=== PATIENT | male | born 1935 | race Caucasian/White ===

== ENCOUNTER 2019-12-15 08:45 | Day surgery (SDC) | payer MEDICARE, OTHER ==
[~2019-12-15 08:45] MED LIST: Cefuroxime 10 MG/ML SYRINGE EYELF SCH; Lidocaine 1% PF 2 ML SDV INJECT SCH; Pilocarpine 4% Ophth Soln 15 ML Bot EYELF SCH
--- NOTE | 2019-12-15 09:47 | PCM.PREANE ---
Preanesthetic Assessment - Procedure Proposed Procedure: cataract - Anesthesia/Transfusion/Family Hx Anesthesia History: Prior Anesthesia Without Reaction Transfusion History: Prior Transfusion Without Reaction - Review of Systems General: No Symptoms Pulmonary: No Symptoms Cardiovascular: No Symptoms, Other (VA in past) Gastrointestinal: No Symptoms Neurological: No Symptoms Other: Reports: None - Physical Assessment NPO Status Date: 12/14/19 NPO Status Time: 20:00 Vital Signs: 132/71 59 98% 16 97.8 Height: 5 ft 9 in Weight: 78.018 kg ASA Class: 3 Mental Status: Alert & Oriented x3 Airway Class: Mallampati = 1 Dentition: Reports: Normal Dentition, Caries (top flipper) Thyro-Mental Finger Breadths: 3 Mouth Opening Finger Breadths: 3 ROM/Head Extension: Full Lungs: Clear to Auscultation Cardiovascular: Regular Rate, Regular Rhythm, Murmurs - Allergies Allergies/Adverse Reactions: Allergies Allergy/AdvReac Type Severity Reaction Status Date / Time amoxicillin Allergy Cannot Verified 12/14/19 10:32 Remember aspirin Allergy Cannot Verified 12/14/19 10:32 Remember Bsgbhgt-Gvt-Ctv Reductase Allergy Cannot Verified 12/14/19 10:32 Inhibitor Remember - Blood Blood Available: No - Anesthesia Plan Beta Meño: Metoprolol Med Last Dose Date: 12/15/19 Med Last Dose Time: 06:30 - Acknowledgements Anesthesia Type Planned: MAC Pt an Appropriate Candidate for the Planned Anesthesia: Yes Alternatives and Risks of Anesthesia Discussed w Pt/Guardian: Yes Pt/Guardian Understands and Agrees with Anesthesia Plan: Yes PreAnesthesia Questionnaire Cardiovascular History: Reports: Heart Murmur, High Cholesterol, Hypertension, VA, Stents Respiratory History: Reports: None Gastrointestinal History: Reports: None Musculoskeletal History: Reports: Arthritis - Past Surgical History Cardiovascular Surgical History: Reports: Coronary Artery Stent GI Surgical History: Reports: Hernia, Inguinal Neurological Surgical History: Reports: Other (See Below) (spinal tumor) Musculoskeletal Surgical History: Reports: Knee Replacement - SUBSTANCE USE Smoking Status *Q: Former Smoker Tobacco Use Within Last Twelve Months: No Second Hand Smoke Exposure: No Recreational Drug Use History: No - HOME MEDS Home Medications: Home Meds Aspirin [Ecotrin EC] 81 mg PO DAILY 12/14/19 [History] Metoprolol Succinate 50 mg PO DAILY 12/14/19 [History] Rosuvastatin Calcium [Crestor] 40 mg PO DAILY 12/14/19 [History] amLODIPine [Norvasc] 5 mg PO DAILY 12/14/19 [History] hydroCHLOROthiazide [Hydrochlorothiazide] 12.5 mg PO DAILY 12/14/19 [History] lisinopriL [Lisinopril] 40 mg PO DAILY 12/14/19 [History] - CURRENT (IN HOUSE) MEDS Current Meds: Current Medications Brimonidine Tartrate (Alphagan 0.2% Ophth Soln) 0 ml EYELF ASDIRECTED [place] Stop: 12/15/19 23:00 Cefuroxime Sodium (Zinacef) 0 mg EYELF ASDIRECTED [place] Stop: 12/15/19 23:00 Lidocaine HCl (Xylocaine-Mpf 1%) 0 ml INJECT ASDIRECTED [place] Stop: 12/15/19 23:00 Phenylephrine HCl (Mike-Synephrine 2.5% Ophth Soln) 0 ml EYELF ASDIRECTED [place] Stop: 12/15/19 23:00 Pilocarpine HCl (Pilocar 4% Ophth Soln) 0 ml EYELF ASDIRECTED [place] Stop: 12/15/19 23:00 Polymyxin/Trimethoprim Sulfate (Polytrim Ophth Soln) 0 ml EYELF ASDIRECTED [place] Stop: 12/15/19 23:00 Tetracaine HCl (Tetracaine 0.5% Steri-Unit Sophie) 0 ml EYELF ASDIRECTED [place] Stop: 12/15/19 23:00 Tropicamide (Mydriacyl 1% Ophth Soln) 0 ml EYELF ASDIRECTED [place] Stop: 12/15/19 23:00
[2019-12-15] MEDS: Polymyxin B/Trimethoprim 10 ML Bottle EYELF SCH ×3 (09:53→11:36)
[2019-12-15] MEDS: Brimonidine 0.2% Ophth Soln 5 ML Bottle EYELF SCH ×3 (09:58→11:36)
[2019-12-15] MEDS: Phenylephrine 2.5% Ophth Soln 2 ML Bot EYELF SCH ×5 (10:05→11:12)
[2019-12-15] MEDS: Tropicamide 1% Ophth Soln 15 ML Bottle EYELF SCH ×4 (10:10→10:49)
[2019-12-15] MEDS: Tetracaine HCl/PF 0.5% 4 ML Bottle EYELF SCH ×2 (10:57→11:21)
--- NOTE | 2019-12-15 11:37 | PCM48HPAN ---
Post Anesthesia Note - EVALUATION WITHIN 48HRS OF ANESTHETIC Vital Signs in Normal Range: Yes Patient Participated in Evaluation: Yes Respiratory Function Stable: Yes Airway Patent: Yes Cardiovascular Function Stable: Yes Hydration Status Stable: Yes Pain Control Satisfactory: Yes Nausea and Vomiting Control Satisfactory: Yes Mental Status Recovered: Yes Vital Signs: Last Vital Signs Temp 97.8 F 12/15/19 09:32 Pulse 59 L 12/15/19 09:32 Resp 16 12/15/19 09:32 BP 132/71 12/15/19 09:32 Pulse Ox 98 12/15/19 09:32
== END 2019-12-15 11:46 | disposition home or self-care (01) ==
LOC: JD.SDS 08:45
PROVIDERS: ATTEND Ophthalmology
DX: H25.813 Combined forms of age-related cataract, bilateral (principal); H35.3131 Nonexudative age-related macular degeneration, bilateral, early dry stage; H35.363 Drusen (degenerative) of macula, bilateral; H40.003 Preglaucoma, unspecified, bilateral; H35.033 Hypertensive retinopathy, bilateral; H43.313 Vitreous membranes and strands, bilateral; H02.834 Dermatochalasis of left upper eyelid; H02.831 Dermatochalasis of right upper eyelid; I10 Essential (primary) hypertension; E78.00 Pure hypercholesterolemia, unspecified; I25.2 Old myocardial infarction; M19.90 Unspecified osteoarthritis, unspecified site; Z87.891 Personal history of nicotine dependence; Z79.82 Long term (current) use of aspirin; Z79.899 Other long term (current) drug therapy; Z88.0 Allergy status to penicillin; Z88.6 Allergy status to analgesic agent; Z88.8 Allergy status to other drugs, medicaments and biological substances
CPT/HCPCS: 66984; J0697; J2001; C1780

== ENCOUNTER 2021-01-29 19:24 | Emergency (ER) | payer MEDICARE, OTHER ==
--- NOTE | 2021-01-29 19:46 | EDM.PDOC ---
ED HPI GENERAL MEDICAL PROBLEM - General Chief Complaint: Chest Pain Stated Complaint: CHILLS FEVER CHEST PAIN Time Seen by Provider: 01/29/21 19:36 - History of Present Illness INITIAL COMMENTS - FREE TEXT/NARRATIVE: 85-year-old male presents the emergency room with chest discomfort. He has had associated fevers with this. This is been going on the last couple of days. Drinking fluids milk water tends to make it worse he cannot identify any specific foods that makes it worse. However, he cannot exclude food is been a trigger. Patient has a history of coronary artery disease had a stroke about a year ago. He suffers from atrial fibrillation and is on Eliquis. Currently has been evaluated for possible aortic valve replacement this last week he had a transesophageal echo to assess this. Patient does not have a significant cough but is coughing some it is nonproductive. This discomfort does not radiate it is not crushing. And at present he is having no chest pain. 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 Chest Pain Score (Numeric/FACES): 8 - Related Data Allergies Allergy/AdvReac Type Severity Reaction Status Date / Time amoxicillin Allergy Severe Rash Verified 01/29/21 19:39 Qokjqnc-Kee-Jdd Reductase Allergy Severe Cannot Verified 01/29/21 19:39 Inhibitor Remember aspirin AdvReac Severe Other Verified 01/29/21 19:39 Home Meds: Home Meds Aspirin [Ecotrin EC] 81 mg PO DAILY 12/14/19 [History] Metoprolol Succinate 50 mg PO DAILY 12/14/19 [History] Rosuvastatin Calcium [Crestor] 40 mg PO DAILY 12/14/19 [History] hydroCHLOROthiazide [Hydrochlorothiazide] 12.5 mg PO DAILY 12/14/19 [History] lisinopriL [Lisinopril] 40 mg PO DAILY 12/14/19 [History] Apixaban [Eliquis] 5 mg PO BID 01/29/21 [History] Ubidecarenone [COQ-10] 30 mg PO DAILY 01/29/21 [History] Past Medical History Cardiovascular History: Reports: Heart Murmur, High Cholesterol, Hypertension, [place], Stents Respiratory History: Reports: None Gastrointestinal History: Reports: None Musculoskeletal History: Reports: Arthritis - Past Surgical History Cardiovascular Surgical History: Reports: Coronary Artery Stent GI Surgical History: Reports: Hernia, Inguinal Neurological Surgical History: Reports: Other (See Below) (spinal tumor) Musculoskeletal Surgical History: Reports: Knee Replacement ED ROS GENERAL - Review of Systems Review Of Systems: See Below Constitutional: Reports: Fever, Chills. Denies: No Symptoms HEENT: Reports: No Symptoms Respiratory: Reports: Cough (Minimal). Denies: Shortness of Breath, Sputum, He moptysis Cardiovascular: Reports: Chest Pain. Denies: Edema Endocrine: Reports: No Symptoms GI/Abdominal: Reports: Abdominal Pain, Nausea. Denies: Constipation, Diarrhea, Vomiting : Reports: No Symptoms Musculoskeletal: Reports: No Symptoms Skin: Reports: No Symptoms Neurological: Reports: No Symptoms, Other (Residual effects from the prior stroke but is otherwise not having any worsening.). Denies: Confusion, Dizzin ess Psychiatric: Reports: No Symptoms Hematologic/Lymphatic: Reports: No Symptoms Immunologic: Reports: No Symptoms ED EXAM, GENERAL - Physical Exam Exam: See Below Exam Limited By: No Limitations General Appearance: Alert, No Apparent Distress, Other (Vital signs stable other than a minimal tachycardia at 105 this is dropped into the 90s with rest.) Ears: Normal External Exam, Normal Canal, Hearing Grossly Normal, Normal TMs, Other (The patient normally uses hearing aids these are removed for exam) Nose: Normal Inspection, Normal Mucosa, No Blood Throat/Mouth: Normal Inspection, Normal Lips, Normal Gums, Normal Oropharynx, Normal Voice, No Airway Compromise. No: Normal Teeth (He has some artificial teeth) Head: Atraumatic, Normocephalic Neck: Normal Inspection, Supple, Non-Tender, Full Range of Motion. No: Lymphadenopathy (L), Lymphadenopathy (R) Respiratory/Chest: No Respiratory Distress, Lungs Clear, Normal Breath Sounds Cardiovascular: Regular Rate, Rhythm, No Edema, Other (6 holosystolic murmur heard best along the right upper sternal border) GI/Abdominal: Normal Bowel Sounds, Soft, Other (He has this vague right upper quadrant discomfort otherwise no palpable discomfort no rigidity rebound or guarding noted) Back Exam: Normal Inspection. No: CVA Tenderness (L), CVA Tenderness (R) Extremities: Normal Inspection, Other (Scant if any pedal edema) Neurological: Alert, Oriented, Normal Cognition Skin Exam: Warm, Dry, Intact #1 Interpretation EKG Date: 01/29/21 Rhythm: A-Fib [place]: Normal P-Wave: Absent QRS: Other (Will touch in the extremities leads) ST-T: Depressed (ST depression V4 and 5 nondiagnostic) QT: Normal Comparison: NA - No Prior EKG EKG Interpretation Comments: Abnormal EKG Course - Vital Signs Last Recorded V/S: Last Vital Signs Temp 36.8 C 01/29/21 20:20 Pulse 96 01/29/21 21:30 Resp 20 01/29/21 21:30 BP 100/57 L 01/29/21 21:30 Pulse Ox 96 01/29/21 21:30 - Orders/Labs/Meds Orders: Active Orders 24 hr Category Date Time Status EKG 12 Lead [EKG Documentation Completion] [RC] ROUTINE Care 01/29/21 19:33 Active Abdomen Ltd [US] Stat Exams 01/29/21 20:58 Ordered Chest 1V Frontal [CR] Stat Exams 01/29/21 20:03 Taken CULTURE BLOOD [BC] Stat Lab 01/29/21 22:06 Ordered CULTURE BLOOD [BC] Stat Lab 01/29/21 22:06 Ordered LACTATE SEPSIS W/ REFLEX [CHEM] Stat Lab 01/29/21 22:05 Ordered Heparin Sodium/D5W [Heparin 25,000 Units in D5W 500 ML] Med 01/29/21 22:00 Ordered 25,000 units in 500 ml IV TITRATE Lactated Ringers [Ringers, Lactated] 1,000 ml Med 01/29/21 21:00 Active IV ASDIRECTED Blood Culture x2 Reflex Set [OM.PC] Stat Oth 01/29/21 22:05 Ordered Isolation [COMM] Routine Oth 01/29/21 20:04 Ordered Medication Orders Lactated Ringer's (Ringers, Lactated) 1,000 mls @ 125 mls/hr IV ASDIRECTED [place] Last Admin: 01/29/21 21:30 Dose: 125 mls/hr Documented by: BREE Heparin Sodium/Dextrose (Heparin 25,000 Units In D5w 500 Ml) 25,000 units in 500 mls @ 19.944 mls/hr IV TITRATE [place]; Protocol Labs: Laboratory Tests 01/29/21 01/29/21 01/29/21 Range/Units 19:40 19:40 19:40 WBC 16.90 H (4.23-9.07) K/mm3 RBC 5.12 (4.63-6.08) M/mm3 Hgb 15.5 (13.7-17.5) gm/dl Hct 47.0 (40.1-51.0) % MCV 91.8 (79.0-92.2) fl MCH 30.3 (25.7-32.2) pg MCHC 33.0 (32.2-35.5) g/dl RDW Std Deviation 48.2 H (35.1-43.9) fL Plt Count 221 (163-337) K/mm3 MPV 10.0 (9.4-12.3) fl Neutrophils % (Manual) 87 H (40-60) % Band Neutrophils % 0 (0-10) % Lymphocytes % (Manual) 12 L (20-40) % Atypical Lymphs % 0 % Monocytes % (Manual) 1 L (2-10) % Eosinophils % (Manual) 0 L (0.8-7.0) % Basophils % (Manual) 0 L (0.2-1.2) Platelet Estimate Adequate RBC Morph Comment Normal D-Dimer, Quantitative 0.29 (0.19-0.50) mg/L Sodium 135 L (136-145) mEq/L Potassium 4.3 (3.5-5.1) mEq/L Chloride 100 (98-107) mEq/L Carbon Dioxide 24 (21-32) mEq/L Anion Gap 15.3 H (5-15) BUN 32 H (7-18) mg/dL Creatinine 1.5 H (0.7-1.3) mg/dL Est Cr Clr Drug Dosing 36.66 mL/min Estimated GFR (MDRD) 45 (>60) mL/min BUN/Creatinine Ratio 21.3 H (14-18) Glucose 155 H (83-115) mg/dL Calcium 8.9 (8.5-10.1) mg/dL Total Bilirubin 2.5 H (0.2-1.0) mg/dL AST 20 (15-37) U/L ALT 18 (16-63) U/L Alkaline Phosphatase 68 (46-116) U/L Troponin I 0.144 H* (0.00-0.056) ng/mL NT-Pro-B Natriuret Pep (0-450) pg/mL Total Protein 7.0 (6.4-8.2) g/dl Albumin 3.2 L (3.4-5.0) g/dl Globulin 3.8 gm/dL Albumin/Globulin Ratio 0.8 L (1-2) Lipase 122 (73-393) U/L Urine Color (Yellow) Urine Appearance (Clear) Urine pH (5.0-8.0) Ur Specific Lula (1.005-1.030) Urine Protein (Negative) Urine Glucose (UA) (Negative) Urine Ketones (Negative) Urine Occult Blood (Negative) Urine Nitrite (Negative) Urine Bilirubin (Negative) Urine Urobilinogen (0.2-1.0) Ur Leukocyte Esterase (Negative) Urine RBC (0-5) /hpf Urine WBC (0-5) /hpf Ur Squamous Epith Cells (0-5) /hpf Urine Bacteria (FEW) /hpf Urine Mucus (FEW) /hpf Influenza Type A RNA (NEGATIVE) Influenza Type B RNA (NEGATIVE) SARS-CoV-2 RNA (NAHID) (NEGATIVE) 01/29/21 01/29/21 01/29/21 Range/Units 19:40 20:08 20:17 WBC (4.23-9.07) K/mm3 RBC (4.63-6.08) M/mm3 Hgb (13.7-17.5) gm/dl Hct (40.1-51.0) % MCV (79.0-92.2) fl MCH (25.7-32.2) pg MCHC (32.2-35.5) g/dl RDW Std Deviation (35.1-43.9) fL Plt Count (163-337) K/mm3 MPV (9.4-12.3) fl Neutrophils % (Manual) (40-60) % Band Neutrophils % (0-10) % Lymphocytes % (Manual) (20-40) % Atypical Lymphs % % Monocytes % (Manual) (2-10) % Eosinophils % (Manual) (0.8-7.0) % Basophils % (Manual) (0.2-1.2) Platelet Estimate RBC Morph Comment D-Dimer, Quantitative (0.19-0.50) mg/L Sodium (136-145) mEq/L Potassium (3.5-5.1) mEq/L Chloride (98-107) mEq/L Carbon Dioxide (21-32) mEq/L Anion Gap (5-15) BUN (7-18) mg/dL Creatinine (0.7-1.3) mg/dL Est Cr Clr Drug Dosing mL/min Estimated GFR (MDRD) (>60) mL/min BUN/Creatinine Ratio (14-18) Glucose (83-115) mg/dL Calcium (8.5-10.1) mg/dL Total Bilirubin (0.2-1.0) mg/dL AST (15-37) U/L ALT (16-63) U/L Alkaline Phosphatase (46-116) U/L Troponin I (0.00-0.056) ng/mL NT-Pro-B Natriuret Pep 1146 H (0-450) pg/mL Total Protein (6.4-8.2) g/dl Albumin (3.4-5.0) g/dl Globulin gm/dL Albumin/Globulin Ratio (1-2) Lipase (73-393) U/L Urine Color Yellow (Yellow) Urine Appearance Clear (Clear) Urine pH 7.0 (5.0-8.0) Ur Specific Lula 1.020 (1.005-1.030) Urine Protein 2+ H (Negative) Urine Glucose (UA) Negative (Negative) Urine Ketones 1+ H (Negative) Urine Occult Blood Trace-lysed H (Negative) Urine Nitrite Negative (Negative) Urine Bilirubin 1+ H (Negative) Urine Urobilinogen 1.0 (0.2-1.0) Ur Leukocyte Esterase Negative (Negative) Urine RBC 0-5 (0-5) /hpf Urine WBC 0-5 (0-5) /hpf Ur Squamous Epith Cells 0-5 (0-5) /hpf Urine Bacteria Occasional (FEW) /hpf Urine Mucus Few (FEW) /hpf Influenza Type A RNA Negative (NEGATIVE) Influenza Type B RNA Negative (NEGATIVE) SARS-CoV-2 RNA (NAHID) Negative (NEGATIVE) 01/29/21 Range/Units 21:25 WBC (4.23-9.07) K/mm3 RBC (4.63-6.08) M/mm3 Hgb (13.7-17.5) gm/dl Hct (40.1-51.0) % MCV (79.0-92.2) fl MCH (25.7-32.2) pg MCHC (32.2-35.5) g/dl RDW Std Deviation (35.1-43.9) fL Plt Count (163-337) K/mm3 MPV (9.4-12.3) fl Neutrophils % (Manual) (40-60) % Band Neutrophils % (0-10) % Lymphocytes % (Manual) (20-40) % Atypical Lymphs % % Monocytes % (Manual) (2-10) % Eosinophils % (Manual) (0.8-7.0) % Basophils % (Manual) (0.2-1.2) Platelet Estimate RBC Morph Comment D-Dimer, Quantitative (0.19-0.50) mg/L Sodium (136-145) mEq/L Potassium (3.5-5.1) mEq/L Chloride (98-107) mEq/L Carbon Dioxide (21-32) mEq/L Anion Gap (5-15) BUN (7-18) mg/dL Creatinine (0.7-1.3) mg/dL Est Cr Clr Drug Dosing mL/min Estimated GFR (MDRD) (>60) mL/min BUN/Creatinine Ratio (14-18) Glucose (83-115) mg/dL Calcium (8.5-10.1) mg/dL Total Bilirubin (0.2-1.0) mg/dL AST (15-37) U/L ALT (16-63) U/L Alkaline Phosphatase (46-116) U/L Troponin I 2.306 H* (0.00-0.056) ng/mL NT-Pro-B Natriuret Pep (0-450) pg/mL Total Protein (6.4-8.2) g/dl Albumin (3.4-5.0) g/dl Globulin gm/dL Albumin/Globulin Ratio (1-2) Lipase (73-393) U/L Urine Color (Yellow) Urine Appearance (Clear) Urine pH (5.0-8.0) Ur Specific Lula (1.005-1.030) Urine Protein (Negative) Urine Glucose (UA) (Negative) Urine Ketones (Negative) Urine Occult Blood (Negative) Urine Nitrite (Negative) Urine Bilirubin (Negative) Urine Urobilinogen (0.2-1.0) Ur Leukocyte Esterase (Negative) Urine RBC (0-5) /hpf Urine WBC (0-5) /hpf Ur Squamous Epith Cells (0-5) /hpf Urine Bacteria (FEW) /hpf Urine Mucus (FEW) /hpf Influenza Type A RNA (NEGATIVE) Influenza Type B RNA (NEGATIVE) SARS-CoV-2 RNA (NAHID) (NEGATIVE) Meds: Medications Generic Name Dose Route Start Last Admin Trade Name Freq PRN Reason Stop Dose Admin Lactated Ringer's 1,000 mls @ 125 mls/hr 01/29/21 21:00 01/29/21 21:30 Ringers, Lactated IV 125 mls/hr ASDIRECTED [place] Administration Heparin Sodium/Dextrose 25,000 units in 500 mls @ 19.944 mls/hr 01/29/21 22:00 Heparin 25,000 Units In D5w 500 Ml IV TITRATE [place] Protocol 12 UNITS/KG/HR Discontinued Medications Generic Name Dose Route Start Last Admin Trade Name Freq PRN Reason Stop Dose Admin Acetaminophen 650 mg 01/29/21 20:08 01/29/21 20:20 Acetaminophen 325 Mg Tab PO 01/29/21 20:09 650 mg NOW ONE Administration Aspirin 324 mg 01/29/21 20:37 01/29/21 20:45 Aspirin 81 Mg Tab.Chew PO 01/29/21 20:38 324 mg ONETIME ONE Administration Heparin Sodium (Porcine) 60 units 01/29/21 21:54 Heparin Sodium 5,000 Units/Ml Vial IVPUSH 01/29/21 21:55 .BOLUS ONE - Re-Assessments/Exams Free Text/Narrative Re-Assessment/Exam: 01/29/21 21:06 Patient's troponin came back slightly elevated 0.144. His proBNP is 1146 white count elevated at 16,900 87% segs no bandemia bilirubin is elevated at 2.5 anion gap is 15.3 BUN 32 creatinine 1.5. I discussed the patient situation with with the his tire setter Dr. Maciel he believes he is having a demand ischemia most likely from being prerenal he recommends checking another troponin and work on rehydration and continue evaluate the source of his right upper quadrant pain. 01/29/21 22:09 Second troponin came back quite a bit elevated at 2.306 up from 0.1442 hours prior. I did discuss this with the tire setter, Dr. Maciel at [facility] who says in light of this we should start heparin and send him to [place]. Gallbladder ultrasound was done which shows no gallstones no sludging no gallbladder wall thickening incidentally there is fluid collection in the renal pelvis. Case was discussed with Dr. Larkin, hospitalist at [facility] who is kind enough to accept the patient in transfer. Patient will be started on heparin his last dose of Eliquis was was this morning. He did receive aspirin here. Patient's blood pressure is in the 90s. After his gallbladder ultrasound he remains chest pain-free he was little diaphoretic and felt feverish but did not have a fever. Departure - Departure Time of Disposition: 22:11 Disposition: DC/Tfer to [facility] 02 Clinical Impression: Elevated troponin, Abdominal discomfort in right upper quadrant, Chest pain - Discharge Information Referrals: Juan José Godwin MD [Primary Care Provider] - Forms: ED Department Discharge Sepsis Event Note (ED) - Focused Exam Vital Signs: Vital Signs Temp Temp Temp Pulse Resp BP Pulse Ox 01/29/21 21:30 96 20 100/57 L 96 01/29/21 20:45 102 H 18 116/68 96 01/29/21 20:20 36.8 C 01/29/21 20:16 97 18 141/74 H 97 01/29/21 20:00 36.9 C 91 18 92/55 L 96 01/29/21 19:33 36.8 C 105 H 18 136/82 95 - My Orders Last 24 Hours: My Active Orders 01/29/21 19:33 EKG 12 Lead [EKG Documentation Completion] [RC] ROUTINE 01/29/21 20:03 Chest 1V Frontal [CR] Stat 01/29/21 20:04 Isolation [COMM] Routine 01/29/21 20:58 Abdomen Ltd [US] Stat 01/29/21 21:00 Lactated Ringers [Ringers, Lactated] 1,000 ml IV ASDIRECTED 01/29/21 22:00 Heparin Sodium/D5W [Heparin 25,000 Units in D5W 500 ML] 25,000 units in 500 ml IV TITRATE 01/29/21 22:05 LACTATE SEPSIS W/ REFLEX [CHEM] Stat Blood Culture x2 Reflex Set [OM.PC] Stat 01/29/21 22:06 CULTURE BLOOD [BC] Stat CULTURE BLOOD [BC] Stat - Assessment/Plan Last 24 Hours: My Active Orders 01/29/21 19:33 EKG 12 Lead [EKG Documentation Completion] [RC] ROUTINE 01/29/21 20:03 Chest 1V Frontal [CR] Stat 01/29/21 20:04 Isolation [COMM] Routine 01/29/21 20:58 Abdomen Ltd [US] Stat 01/29/21 21:00 Lactated Ringers [Ringers, Lactated] 1,000 ml IV ASDIRECTED 01/29/21 22:00 Heparin Sodium/D5W [Heparin 25,000 Units in D5W 500 ML] 25,000 units in 500 ml IV TITRATE 01/29/21 22:05 LACTATE SEPSIS W/ REFLEX [CHEM] Stat Blood Culture x2 Reflex Set [OM.PC] Stat 01/29/21 22:06 CULTURE BLOOD [BC] Stat CULTURE BLOOD [BC] Stat
[2021-01-29] MEDS ORDERED: Acetaminophen 325 MG Tab PO ONE (20:08)
[2021-01-29] MEDS ORDERED: Aspirin 81 MG Tab.Chew PO ONE (20:37)
[2021-01-29 20:53] LABS: CORONAVIRUS COVID-19 NAA NEGATIVE (NEGATIVE)
[2021-01-29] MEDS ORDERED: Lactated Ringers 1,000 ML IV SCH (21:00)
[2021-01-29] MEDS ORDERED: Heparin Sodium 5,000 Units/ML Vial IVPUSH ONE ×2 (21:54→22:12)
[2021-01-29] MEDS ORDERED: Heparin Sodium/D5W 25,000 UNITS/500 ML BAG IV SCH ×2 (22:00→22:30)
--- NOTE | 2021-01-30 08:28 | US ---
Limited abdominal ultrasound: Multiple real-time images of the upper right abdomen were obtained. Comparison: No prior abdominal imaging is available. Liver shows no focal parenchymal abnormality. Right kidney shows slightly prominent right extrarenal pelvis which is most likely a normal variant. Right kidney shows a normal length of 11.2 cm. Gallbladder contains no shadowing gallstones. No gallbladder wall thickening or biliary duct dilatation is seen. Proximal aorta is not well seen. Pancreas is poorly seen. Inferior vena cava is patent. Main portal vein shows normal hepatopedal flow. Impression: 1. Pancreas and proximal are aorta not well seen. 2. Other portions of the right upper quadrant abdominal ultrasound study show nothing acute. Diagnostic code #2 I agree with preliminary report from [facility], finalized on 01/29/21, 11:29 PM CDT
--- NOTE | 2021-01-30 08:28 | CR ---
Chest: Portable view of the chest was obtained. Comparison: Prior chest x-ray of 09/19/13. Heart size and mediastinum are within normal limits for the patient's age. Lungs are clear with no acute parenchymal change. Bony structure shows nothing acute. Impression: 1. Nothing acute is appreciated on portable chest x-ray. Diagnostic code #1
== END 2021-01-29 22:42 ==
LOC: JD.ED 19:24
DX: R10.11 Right upper quadrant pain (principal); R07.89 Other chest pain; R79.89 Other specified abnormal findings of blood chemistry; E78.00 Pure hypercholesterolemia, unspecified; I10 Essential (primary) hypertension; I25.2 Old myocardial infarction; M19.90 Unspecified osteoarthritis, unspecified site; Z88.0 Allergy status to penicillin; Z88.6 Allergy status to analgesic agent; Z88.8 Allergy status to other drugs, medicaments and biological substances; Z79.82 Long term (current) use of aspirin; Z79.899 Other long term (current) drug therapy; Z20.822 Contact with and (suspected) exposure to COVID-19
CPT/HCPCS: 0240U; 36415; 71045; 76705; 80053; 81001; 83605; 83690; 83880; 84484; 85007; 85027; 85379; 87040; 87077; 87181; 87184; 93005; 96365; 99285; A9270; J1644; J7120; 93010

== ENCOUNTER 2021-02-24 08:57 | Emergency (ER) | payer MEDICARE, OTHER ==
[2021-02-24] MEDS ORDERED: Sodium Chloride 0.9% 10 ML Syringe FLUSH PRN ×2 (09:17→11:29)
--- NOTE | 2021-02-24 09:23 | EDM.PDOC ---
ED HPI GENERAL MEDICAL PROBLEM - General Chief Complaint: Chest Pain Stated Complaint: CHEST PAIN AND SOB Time Seen by Provider: 02/24/21 09:06 Source of Information: Reports: Patient History Limitations: Reports: No Limitations - History of Present Illness INITIAL COMMENTS - FREE TEXT/NARRATIVE: The patient presents with chest pain and shortness of breath. This started last night before he went to bed. He then woke up about 1 in the morning and had to sit in his chair in the living room. He was recently sent to [facility] in [place] on January 27 for chest pain and elevated troponin. 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 He has no fever or chills. He does have a slight cough but that is a chronic issue. He has no abdominal pain, nausea or vomiting. He has a history of an NM and stents in the past. He did take aspirin this morning. He has a history of atrial fibrillation and he is on eliquis for that. Onset: Gradual Duration: Hour(s): (last night) Location: Reports: Chest Quality: Reports: Pressure Severity: Moderate Improves with: Reports: None Worsens with: Reports: None Associated Symptoms: Reports: Chest Pain, Cough, Shortness of Breath. Denies: Fever/Chills, Headaches, Nausea/Vomiting - Related Data Allergies Allergy/AdvReac Type Severity Reaction Status Date / Time amoxicillin Allergy Intermediate Rash Verified 02/09/21 09:22 [id number] Reductase Allergy Unknown Cannot Verified 02/09/21 09:22 Inhibitor Remember aspirin AdvReac Intermediate Bleeding Verified 02/09/21 09:22 Home Meds: Home Meds Aspirin [Ecotrin EC] 81 mg PO DAILY 12/14/19 [History] Metoprolol Succinate 50 mg PO DAILY 12/14/19 [History] hydroCHLOROthiazide [Hydrochlorothiazide] 12.5 mg PO DAILY 12/14/19 [History] lisinopriL [Lisinopril] 40 mg PO DAILY 12/14/19 [History] Apixaban [Eliquis] 5 mg PO BID 01/29/21 [History] Ubidecarenone [COQ-10] 30 mg PO DAILY 01/29/21 [History] Nitroglycerin 0.4 mg SL Q5M PRN #1 bottle 02/24/21 [Rx] Past Medical History HEENT History: Reports: Hard of Hearing, Impaired Vision Other HEENT History: bilateral hearing aid Cardiovascular History: Reports: Afib, Heart Murmur, High Cholesterol, Hypertension, NM, Stents Respiratory History: Reports: None Gastrointestinal History: Reports: GI Bleed Other Gastrointestinal History: Bleeding Ulcers Genitourinary History: Reports: Prostate Disorder Other Genitourinary History: enlarged prostate Musculoskeletal History: Reports: Arthritis, Fracture Neurological History: Reports: CVA Hematologic History: Reports: Anticoagulation Therapy Oncologic (Cancer) History: Reports: Other (See Below) Other Oncologic History: Skin CA Dermatologic History: Reports: Other (See Below) Other Dermatologic History: Skin CA - Past Surgical History HEENT Surgical History: Reports: Cataract Surgery Cardiovascular Surgical History: Reports: Coronary Artery Stent Other Cardiovascular Surgeries/Procedures: Loop Recorder GI Surgical History: Reports: Hernia, Inguinal Neurological Surgical History: Reports: Other (See Below) Other Neurological Surgeries/Procedures: 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 Musculoskeletal Surgical History: Reports: Knee Replacement, Other (See Below) Other Musculoskeletal Surgeries/Procedures:: back sx Social & Family History - Family History Family Medical History: No Pertinent Family History - Tobacco Use Tobacco Use Status *Q: Never Tobacco User Second Hand Smoke Exposure: No - Caffeine Use Caffeine Use: Reports: Coffee - Alcohol Use Days Per Week of Alcohol Use: 2 Number of Drinks Per Day: 2 Total Drinks Per Week: 4 - Recreational Drug Use Recreational Drug Use: No ED ROS GENERAL - Review of Systems Review Of Systems: See Below Constitutional: Reports: No Symptoms HEENT: Reports: No Symptoms Respiratory: Reports: Shortness of Breath, Cough Cardiovascular: Reports: Chest Pain Endocrine: Reports: No Symptoms GI/Abdominal: Reports: No Symptoms : Reports: No Symptoms Musculoskeletal: Reports: No Symptoms ED EXAM, GENERAL - Physical Exam Exam: See Below Exam Limited By: No Limitations General Appearance: Alert, No Apparent Distress Ears: Normal External Exam Nose: Normal Inspection Head: Atraumatic, Normocephalic Neck: Normal Inspection Respiratory/Chest: No Respiratory Distress, Lungs Clear, Normal Breath Sounds Cardiovascular: No Edema, Systolic Murmur, Irregularly Irregular GI/Abdominal: Soft, Non-Tender, No Organomegaly, No Mass Back Exam: Normal Inspection Extremities: Normal Inspection Neurological: Alert, Oriented, No Motor/Sensory Deficits #1 Interpretation EKG Date: 02/24/21 Time: 09:03 Rhythm: A-Fib Rate (Beats/Min): 87 [place]: Normal P-Wave: Present QRS: Normal ST-T: Normal QT: Normal Course - Vital Signs Last Recorded V/S: Last Vital Signs Temp 97.0 F 02/24/21 09:03 Pulse 86 02/24/21 09:03 Resp 20 02/24/21 09:03 BP 175/73 H 02/24/21 09:03 Pulse Ox 98 02/24/21 09:03 - Orders/Labs/Meds Orders: Active Orders 24 hr Category Date Time Status Cardiac Monitoring [RC] . DIRECTED Care 02/24/21 09:17 Active EKG Documentation Completion [RC] STAT Care 02/24/21 09:17 Active Peripheral IV Care [RC] . DIRECTED Care 02/24/21 09:17 Active Ang Chest [CT] Stat Exams 02/24/21 11:23 Taken Chest 1V Frontal [CR] Stat Exams 02/24/21 09:18 Taken VL Duplex Lwr Ext Veins Ltd Lt [US] Stat Exams 02/24/21 11:23 Taken Magnesium Citrate [Citrate of Magnesia] Med 02/24/21 13:33 Once 100 ml PO ONETIME ONE Sodium Chloride 0.9% [Normal Saline] 100 ml Med 02/24/21 11:30 Active IV ASDIRECTED Sodium Chloride 0.9% [Saline Flush] Med 02/24/21 09:17 Active 10 ml FLUSH ASDIRECTED PRN Sodium Chloride 0.9% [Saline Flush] Med 02/24/21 11:29 Active 10 ml FLUSH ONETIME PRN Peripheral IV Insertion Adult [OM.PC] Stat Oth 02/24/21 09:17 Ordered Medication Orders Sodium Chloride (Normal Saline) 100 mls @ 60 mls/hr IV ASDIRECTED [place] Last Admin: 02/24/21 12:11 Dose: 60 mls/hr Documented by: NISSA Sodium Chloride (Sodium Chloride 0.9% 10 Ml Syringe) 10 ml FLUSH ASDIRECTED PRN PRN Reason: Keep Vein Open Last Admin: 02/24/21 09:40 Dose: 10 ml Documented by: PAULA Sodium Chloride (Sodium Chloride 0.9% 10 Ml Syringe) 10 ml FLUSH ONETIME PRN PRN Reason: Keep Vein Open Last Admin: 02/24/21 12:11 Dose: 10 ml Documented by: NISSA Labs: Laboratory Tests 02/24/21 02/24/21 02/24/21 Range/Units 09:32 09:32 09:32 WBC 6.44 (4.23-9.07) K/mm3 RBC 4.07 L (4.63-6.08) M/mm3 Hgb 12.3 L D (13.7-17.5) gm/dl Hct 37.7 L (40.1-51.0) % MCV 92.6 H (79.0-92.2) fl MCH 30.2 (25.7-32.2) pg MCHC 32.6 (32.2-35.5) g/dl RDW Std Deviation 47.3 H (35.1-43.9) fL Plt Count 306 D (163-337) K/mm3 MPV 9.3 L (9.4-12.3) fl Neut % (Auto) 73.3 H (34.0-67.9) % Lymph % (Auto) 16.0 L (21.8-53.1) % [place] % (Auto) 8.4 (5.3-12.2) % Eos % (Auto) 1.7 (0.8-7.0) Baso % (Auto) 0.3 (0.1-1.2) % Neut # (Auto) 4.72 (1.78-5.38) K/mm3 Lymph # (Auto) 1.03 L (1.32-3.57) K/mm3 [place] # (Auto) 0.54 (0.30-0.82) K/mm3 Eos # (Auto) 0.11 (0.04-0.54) K/mm3 Baso # (Auto) 0.02 (0.01-0.08) K/mm3 D-Dimer, Quantitative 1.17 H (0.19-0.50) mg/L Sodium 139 (136-145) mEq/L Potassium 3.7 (3.5-5.1) mEq/L Chloride 102 (98-107) mEq/L Carbon Dioxide 26 (21-32) mEq/L Anion Gap 14.7 (5-15) BUN 22 H (7-18) mg/dL Creatinine 1.1 (0.7-1.3) mg/dL Est Cr Clr Drug Dosing 49.99 mL/min Estimated GFR (MDRD) > 60 (>60) mL/min BUN/Creatinine Ratio 20.0 H (14-18) Glucose 133 H (83-115) mg/dL Calcium 9.4 (8.5-10.1) mg/dL Total Bilirubin 1.2 H (0.2-1.0) mg/dL AST 15 (15-37) U/L ALT 11 L (16-63) U/L Alkaline Phosphatase 67 (46-116) U/L Troponin I < 0.017 (0.00-0.056) ng/mL NT-Pro-B Natriuret Pep (0-450) pg/mL Total Protein 6.9 (6.4-8.2) g/dl Albumin 3.3 L (3.4-5.0) g/dl Globulin 3.6 gm/dL Albumin/Globulin Ratio 0.9 L (1-2) 02/24/21 02/24/21 Range/Units 09:32 12:28 WBC (4.23-9.07) K/mm3 RBC (4.63-6.08) M/mm3 Hgb (13.7-17.5) gm/dl Hct (40.1-51.0) % MCV (79.0-92.2) fl MCH (25.7-32.2) pg MCHC (32.2-35.5) g/dl RDW Std Deviation (35.1-43.9) fL Plt Count (163-337) K/mm3 MPV (9.4-12.3) fl Neut % (Auto) (34.0-67.9) % Lymph % (Auto) (21.8-53.1) % [place] % (Auto) (5.3-12.2) % Eos % (Auto) (0.8-7.0) Baso % (Auto) (0.1-1.2) % Neut # (Auto) (1.78-5.38) K/mm3 Lymph # (Auto) (1.32-3.57) K/mm3 [place] # (Auto) (0.30-0.82) K/mm3 Eos # (Auto) (0.04-0.54) K/mm3 Baso # (Auto) (0.01-0.08) K/mm3 D-Dimer, Quantitative (0.19-0.50) mg/L Sodium (136-145) mEq/L Potassium (3.5-5.1) mEq/L Chloride (98-107) mEq/L Carbon Dioxide (21-32) mEq/L Anion Gap (5-15) BUN (7-18) mg/dL Creatinine (0.7-1.3) mg/dL Est Cr Clr Drug Dosing mL/min Estimated GFR (MDRD) (>60) mL/min BUN/Creatinine Ratio (14-18) Glucose (83-115) mg/dL Calcium (8.5-10.1) mg/dL Total Bilirubin (0.2-1.0) mg/dL AST (15-37) U/L ALT (16-63) U/L Alkaline Phosphatase (46-116) U/L Troponin I < 0.017 (0.00-0.056) ng/mL NT-Pro-B Natriuret Pep 850 H (0-450) pg/mL Total Protein (6.4-8.2) g/dl Albumin (3.4-5.0) g/dl Globulin gm/dL Albumin/Globulin Ratio (1-2) Meds: Medications Generic Name Dose Route Start Last Admin Trade Name Freq PRN Reason Stop Dose Admin Sodium Chloride 100 mls @ 60 mls/hr 02/24/21 11:30 02/24/21 12:11 Normal Saline IV 60 mls/hr ASDIRECTED [place] Administration Sodium Chloride 10 ml 02/24/21 09:17 02/24/21 09:40 Sodium Chloride 0.9% 10 Ml Syringe FLUSH 10 ml ASDIRECTED PRN Administration Keep Vein Open Sodium Chloride 10 ml 02/24/21 11:29 02/24/21 12:11 Sodium Chloride 0.9% 10 Ml Syringe FLUSH 10 ml ONETIME PRN Administration Keep Vein Open Discontinued Medications Generic Name Dose Route Start Last Admin Trade Name Freq PRN Reason Stop Dose Admin Iopamidol 100 ml 02/24/21 11:29 02/24/21 12:10 Iopamidol 755 Mg/Ml 100 Ml Bottle IVPUSH 02/24/21 11:30 100 ml ONETIME ONE Administration - Re-Assessments/Exams Free Text/Narrative Re-Assessment/Exam: 02/24/21 09:23 I ordered an IV saline lock, EKG, CXR and labs. The patient took aspirin this morning. 02/24/21 13:23 His EKG shows atrial fibrillation with no acute changes. His CXR looks good. His CBC and CMP look good. His troponin was negative. His D-dimer was elevated at 1.17. I called [facility] in [place] and talked with the director of product marketing security installation technician Dr Seaman and he was okay with me doing a second troponin in 3 hours and if that is normal he can go home. I have ordered that. His D-dimer was elevated and he says he has been having swelling in both legs with the left worse then the right. I did a CT angio of his chest and it shows no pulmonary embolism identified. Consolidation and volume loss right lower lobe posteriorly and volume loss left lower lobe posteriorly. Moderate right and small left pleural effusion. His repeat troponin is normal. I am waiting for the US of his left leg. 02/24/21 13:33 Dr Seaman wanted a prescription of nitro if he has chest pain. I will give him one of those. The patient also says he has been having trouble having a bowel movement for 4 days. I will give him some magnesium citrate now. The US shows no DVT. I will discharge him home. Departure - Departure Time of Disposition: 13:40 Disposition: Home, Self-Care 01 Condition: Good Clinical Impression: Atypical chest pain Prescriptions: Nitroglycerin 0.4 mg SL Q5M PRN #1 bottle PRN Reason: Chest Pain Referrals: Juan José Godwin MD [Primary Care Provider] - 1 Week Forms: ED Department Discharge Additional Instructions: Take your medication as prescribed except for your hydrochlorothiazide. Take 2 of the hydrochlorothiazide daily for 3 days. That should help get rid of some extra fluid. Take the nitro if you have chest pain. Take 1 tab under your tongue every 5 minutes for up to 3 doses if you have chest pain. We gave your magnesium citrate to have a bowel movement. If you do not have a bowel movement by tonight take another cup of the magnesium citrate. Drink some water after. Follow up with Dr Montaño and please return if you are worse. Sepsis Event Note (ED) - Evaluation Sepsis Screening Result: No Definite Risk - Focused Exam Vital Signs: Vital Signs Temp Pulse Resp BP Pulse Ox 02/24/21 09:03 97.0 F 86 20 175/73 H 98 - My Orders Last 24 Hours: My Active Orders 02/24/21 09:17 Cardiac Monitoring [RC] . DIRECTED EKG Documentation Completion [RC] STAT Peripheral IV Care [RC] . DIRECTED Sodium Chloride 0.9% [Saline Flush] 10 ml FLUSH ASDIRECTED PRN Peripheral IV Insertion Adult [OM.PC] Stat 02/24/21 09:18 Chest 1V Frontal [CR] Stat 02/24/21 11:23 Ang Chest [CT] Stat Duplex Lwr Ext Veins Ltd Lt [US] Stat 02/24/21 11:29 Sodium Chloride 0.9% [Saline Flush] 10 ml FLUSH ONETIME PRN 02/24/21 11:30 Sodium Chloride 0.9% [Normal Saline] 100 ml IV ASDIRECTED 02/24/21 13:33 Magnesium Citrate [Citrate of Magnesia] 100 ml PO ONETIME ONE - Assessment/Plan Last 24 Hours: My Active Orders 02/24/21 09:17 Cardiac Monitoring [RC] . DIRECTED EKG Documentation Completion [RC] STAT Peripheral IV Care [RC] . DIRECTED Sodium Chloride 0.9% [Saline Flush] 10 ml FLUSH ASDIRECTED PRN Peripheral IV Insertion Adult [OM.PC] Stat 02/24/21 09:18 Chest 1V Frontal [CR] Stat 02/24/21 11:23 Ang Chest [CT] Stat VL Duplex Lwr Ext Veins Ltd Lt [US] Stat 02/24/21 11:29 Sodium Chloride 0.9% [Saline Flush] 10 ml FLUSH ONETIME PRN 02/24/21 11:30 Sodium Chloride 0.9% [Normal Saline] 100 ml IV ASDIRECTED 02/24/21 13:33 Magnesium Citrate [Citrate of Magnesia] 100 ml PO ONETIME ONE
[2021-02-24] MEDS ORDERED: Iopamidol 755 Mg/ML 100 ML Bottle IVPUSH ONE (11:29)
[2021-02-24] MEDS ORDERED: Sodium Chloride 0.9% 100 ML IV SCH (11:30)
[2021-02-24] MEDS ORDERED: Magnesium Citrate Solution 296 ML Bottle PO ONE (13:33)
--- NOTE | 2021-02-25 07:15 | CR ---
Chest: Portable view of the chest was obtained. Comparison: Prior chest x-ray 01/29/21. Subsequent chest CT is also available. Heart size and mediastinum are normal. No definite acute parenchymal change is seen. Bony structures are grossly intact. Prior atelectasis and pleural effusions noted on subsequent chest CT are not well identified on current study. Impression: 1. No definite acute abnormality is seen on frontal chest x-ray. Diagnostic code #1
--- NOTE | 2021-02-25 08:38 | CT ---
CT chest Technique: Multiple axial sections through the chest were obtained. Intravenous contrast was utilized. Study has been performed as a pulmonary angiogram protocol. Comparison: Chest x-ray performed earlier on the same day. Findings: Small bilateral pleural effusions are noted with mild adjacent atelectasis. Mitral annulus calcification is seen. Heart is felt to be slightly enlarged. Coronary artery calcification is noted. Pulmonary arteries are well opacified and show no filling defects of pulmonary embolism. Mediastinum shows no adenopathy. No axillary adenopathy is appreciated. Thoracic aorta shows atherosclerotic change without aneurysm. Lungs otherwise are clear. Visualized upper abdominal structures show nothing acute. Impression: 1. No findings of pulmonary embolism. 2. Small bilateral pleural effusions with adjacent atelectasis. 3. Cardiomegaly and other incidental change as noted above. Diagnostic code #3 I agree with preliminary report from [facility], finalized on 01/25/21, 1:26 PM CDT, code 1
--- NOTE | 2021-02-25 09:12 | US ---
Left lower extremity deep venous ultrasound: Duplex and color Doppler evaluation was obtained of the left common femoral, proximal greater saphenous, superficial femoral, popliteal, posterior tibial and peroneal veins. Right common femoral vein was also evaluated. Additional images were obtained of the posterior calf in the area described as pain. Comparison: No prior venous imaging is available. Findings: Normal phasic flow, augmentation and compression is seen. No soft tissue abnormality is seen within the visualized images of the posterior calf. Impression: 1. No evidence of deep venous thrombosis within left lower extremity or within the right common femoral vein. 2. No soft tissue abnormality is seen within the imaged left calf. Diagnostic code #1 I agree with preliminary report from [facility], finalized on 02/24/21, 2:32 PM Central Daylight Time, code 1
== END 2021-02-24 14:08 | disposition home or self-care (01) ==
LOC: JD.ED 08:57
DX: R07.89 Other chest pain (principal); I48.91 Unspecified atrial fibrillation; I10 Essential (primary) hypertension; I25.2 Old myocardial infarction; M19.90 Unspecified osteoarthritis, unspecified site; Z95.5 Presence of coronary angioplasty implant and graft; Z79.82 Long term (current) use of aspirin; Z79.01 Long term (current) use of anticoagulants; Z79.899 Other long term (current) drug therapy; Z86.73 Personal history of transient ischemic attack (TIA), and cerebral infarction without residual deficits; Z88.0 Allergy status to penicillin; Z88.6 Allergy status to analgesic agent; Z88.8 Allergy status to other drugs, medicaments and biological substances
CPT/HCPCS: 36415; 71045; 71275; 80053; 83880; 84484; 85025; 85379; 93005; 93971; 99285; A9270; Q9967; 93010; 99284

== ENCOUNTER 2021-04-30 10:20 | Emergency (ER) | payer MEDICARE, OTHER ==
--- NOTE | 2021-04-30 10:31 | EDM.PDOC ---
ED HPI GENERAL MEDICAL PROBLEM - General Chief Complaint: Chest Pain Stated Complaint: CHEST PAIN Time Seen by Provider: 04/30/21 10:29 Source of Information: Reports: Patient, RN Notes Reviewed - History of Present Illness INITIAL COMMENTS - FREE TEXT/NARRATIVE: 85 yr old male with onset of chest pressure ant. chest last evening for awhile and than some mild tightness again this morning now gone. He also today feels mildly more short of breath with walking than usual and has mild Sah[place]. Not coughing any more than usual. Mild "indigestion" for a short time last evening as well, no vomiting or diarrhea. Has not had covid, has not had the vaccine. Hx A fib. Hx of "infection around his heart" a few months ago. Chest Pain Score (Numeric/FACES): 7 - Related Data Allergies Allergy/AdvReac Type Severity Reaction Status Date / Time amoxicillin Allergy Intermediate Rash Verified 04/30/21 10:34 Kdeyihw-Hsm-Uxp Reductase Allergy Unknown Cannot Verified 04/30/21 10:34 Inhibitor Remember aspirin AdvReac Intermediate Bleeding Verified 04/30/21 10:34 Home Meds: Home Meds Aspirin [Ecotrin EC] 81 mg PO DAILY 12/14/19 [History] Metoprolol Succinate 50 mg PO DAILY 12/14/19 [History] hydroCHLOROthiazide [Hydrochlorothiazide] 12.5 mg PO DAILY 12/14/19 [History] lisinopriL [Lisinopril] 40 mg PO DAILY 12/14/19 [History] Apixaban [Eliquis] 5 mg PO BID 01/29/21 [History] Ubidecarenone [COQ-10] 30 mg PO DAILY 01/29/21 [History] Nitroglycerin 0.4 mg SL Q5M PRN #1 bottle 02/24/21 [Rx] Past Medical History HEENT History: Reports: Hard of Hearing, Impaired Vision Other HEENT History: bilateral hearing aid Cardiovascular History: Reports: Afib, Heart Murmur, High Cholesterol, Hypertension, [place], Stents Respiratory History: Reports: None Gastrointestinal History: Reports: GI Bleed Other Gastrointestinal History: Bleeding Ulcers Genitourinary History: Reports: Prostate Disorder Other Genitourinary History: enlarged prostate Musculoskeletal History: Reports: Arthritis, Fracture Neurological History: Reports: CVA Hematologic History: Reports: Anticoagulation Therapy Oncologic (Cancer) History: Reports: Other (See Below) Other Oncologic History: Skin CA Dermatologic History: Reports: Other (See Below) Other Dermatologic History: Skin CA - Past Surgical History HEENT Surgical History: Reports: Cataract Surgery Cardiovascular Surgical History: Reports: Coronary Artery Stent Other Cardiovascular Surgeries/Procedures: Loop Recorder GI Surgical History: Reports: Hernia, Inguinal Neurological Surgical History: Reports: Other (See Below) Other Neurological Surgeries/Procedures: 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 Denies: Abdominal Pain, Vomiting Musculoskeletal: Denies: Shoulder Pain, Arm Pain Skin: Reports: No Symptoms Neurological: Denies: Numbness, Tingling, Weakness ED EXAM, GENERAL - Physical Exam Exam: See Below General Appearance: Alert, No Apparent Distress Eye Exam: Bilateral Eye: PERRL Throat/Mouth: Normal Inspection Head: Atraumatic Neck: Supple, Other (No JVD) Respiratory/Chest: No Respiratory Distress, Lungs Clear, Normal Breath Sounds. No: Rhonchi, Wheezing Cardiovascular: Irregularly Irregular GI/Abdominal: Soft, Non-Tender Back Exam: No: CVA Tenderness (L), CVA Tenderness (R) Extremities: Normal Inspection. No: Pedal Edema, Leg Pain, Increased Warmth, Redness Neurological: Alert, Oriented, No Motor/Sensory Deficits #1 Interpretation EKG Date: 04/30/21 Rhythm: A-Fib Rate (Beats/Min): 85 [place]: Normal P-Wave: Absent QRS: Normal ST-T: Normal Course - Vital Signs Last Recorded V/S: Last Vital Signs Temp 97.8 F 04/30/21 13:29 Pulse 86 04/30/21 13:29 Resp 20 04/30/21 13:29 BP 145/73 H 04/30/21 13:29 Pulse Ox 95 04/30/21 13:29 - Orders/Labs/Meds Orders: Active Orders 24 hr Category Date Time Status Peripheral IV Insertion Adult [OM.PC] Stat Oth 04/30/21 10:38 Ordered Labs: Laboratory Tests 04/30/21 04/30/21 04/30/21 Range/Units 10:55 10:55 10:55 WBC 8.31 (4.23-9.07) K/mm3 RBC 4.10 L (4.63-6.08) M/mm3 Hgb 11.2 L (13.7-17.5) gm/dl Hct 36.1 L (40.1-51.0) % MCV 88.0 D (79.0-92.2) fl MCH 27.3 (25.7-32.2) pg MCHC 31.0 L (32.2-35.5) g/dl RDW Std Deviation 43.6 (35.1-43.9) fL Plt Count 238 (163-337) K/mm3 MPV 9.9 (9.4-12.3) fl Neut % (Auto) 84.2 H (34.0-67.9) % Lymph % (Auto) 7.8 L (21.8-53.1) % [place] % (Auto) 7.5 (5.3-12.2) % Eos % (Auto) 0.2 L (0.8-7.0) Baso % (Auto) 0.1 (0.1-1.2) % Neut # (Auto) 6.99 H (1.78-5.38) K/mm3 Lymph # (Auto) 0.65 L (1.32-3.57) K/mm3 [place] # (Auto) 0.62 (0.30-0.82) K/mm3 Eos # (Auto) 0.02 L (0.04-0.54) K/mm3 Baso # (Auto) 0.01 (0.01-0.08) K/mm3 Manual Slide Review Normal smear ESR (0-15) mm/hr Sodium 143 (136-145) mEq/L Potassium 3.9 (3.5-5.1) mEq/L Chloride 107 (98-107) mEq/L Carbon Dioxide 24 (21-32) mEq/L Anion Gap 15.9 H (5-15) BUN 24 H (7-18) mg/dL Creatinine 1.2 (0.7-1.3) mg/dL Est Cr Clr Drug Dosing 45.82 mL/min Estimated GFR (MDRD) 58 (>60) mL/min BUN/Creatinine Ratio 20.0 H (14-18) Glucose 106 H (70-99) mg/dL Calcium 9.0 (8.5-10.1) mg/dL Total Bilirubin 2.0 H (0.2-1.0) mg/dL AST 22 (15-37) U/L ALT 14 L (16-63) U/L Alkaline Phosphatase 66 (46-116) U/L Troponin I < 0.017 (0.00-0.056) ng/mL C-Reactive Protein (<1.0) mg/dL NT-Pro-B Natriuret Pep 1570 H (0-450) pg/mL Total Protein 6.4 (6.4-8.2) g/dl Albumin 3.5 (3.4-5.0) g/dl Globulin 2.9 gm/dL Albumin/Globulin Ratio 1.2 (1-2) 04/30/21 04/30/21 Range/Units 11:19 11:19 WBC (4.23-9.07) K/mm3 RBC (4.63-6.08) M/mm3 Hgb (13.7-17.5) gm/dl Hct (40.1-51.0) % MCV (79.0-92.2) fl MCH (25.7-32.2) pg MCHC (32.2-35.5) g/dl RDW Std Deviation (35.1-43.9) fL Plt Count (163-337) K/mm3 MPV (9.4-12.3) fl Neut % (Auto) (34.0-67.9) % Lymph % (Auto) (21.8-53.1) % [place] % (Auto) (5.3-12.2) % Eos % (Auto) (0.8-7.0) Baso % (Auto) (0.1-1.2) % Neut # (Auto) (1.78-5.38) K/mm3 Lymph # (Auto) (1.32-3.57) K/mm3 [place] # (Auto) (0.30-0.82) K/mm3 Eos # (Auto) (0.04-0.54) K/mm3 Baso # (Auto) (0.01-0.08) K/mm3 Manual Slide Review ESR 7 (0-15) mm/hr Sodium (136-145) mEq/L Potassium (3.5-5.1) mEq/L Chloride (98-107) mEq/L Carbon Dioxide (21-32) mEq/L Anion Gap (5-15) BUN (7-18) mg/dL Creatinine (0.7-1.3) mg/dL Est Cr Clr Drug Dosing mL/min Estimated GFR (MDRD) (>60) mL/min BUN/Creatinine Ratio (14-18) Glucose (70-99) mg/dL Calcium (8.5-10.1) mg/dL Total Bilirubin (0.2-1.0) mg/dL AST (15-37) U/L ALT (16-63) U/L Alkaline Phosphatase (46-116) U/L Troponin I (0.00-0.056) ng/mL C-Reactive Protein 1.9 H* (<1.0) mg/dL NT-Pro-B Natriuret Pep (0-450) pg/mL Total Protein (6.4-8.2) g/dl Albumin (3.4-5.0) g/dl Globulin gm/dL Albumin/Globulin Ratio (1-2) Meds: Medications Discontinued Medications Generic Name Dose Route Start Last Admin Trade Name Freq PRN Reason Stop Dose Admin Sodium Chloride 10 ml 04/30/21 10:37 04/30/21 10:55 Sodium Chloride 0.9% 10 Ml Syringe FLUSH 10 ml ASDIRECTED PRN Administration Keep Vein Open - Re-Assessments/Exams Free Text/Narrative Re-Assessment/Exam: 04/30/21 15:02 CXR nl, in a fib with controlled rate on eliquis. WBC nl, CRP about 1.8. Resting comfortably while in ED, continued a fib with controlled rate, no ectopy. Departure - Departure Time of Disposition: 13:15 Disposition: Home, Self-Care 01 Reason for Transfer *Q: Primary PCI Indicated Clinical Impression: Atypical chest pain Atrial fibrillation Qualifiers: Atrial fibrillation type: unspecified chronic Qualified Code(s): I48.20 - Chronic atrial fibrillation, unspecified; I48.2 - Chronic atrial fibrillation Instructions: Nonspecific Chest Pain, Adult, [id number] Referrals: Juan José Godwin MD [Primary Care Provider] - Forms: ED Department Discharge Additional Instructions: Continue current medications. Try avoid salty food as best you can. If your weight goes up more than 4 lbs from baseline than your diuretic medication will need to be adjusted. Follow up clinic as needed. Return to ED as needed if symptoms worsening in any way. Sepsis Event Note (ED) - Focused Exam Vital Signs: Vital Signs Temp Pulse Resp BP Pulse Ox 04/30/21 13:29 97.8 F 86 20 145/73 H 95 04/30/21 10:25 97.8 F 80 20 150/61 H 98 - My Orders Last 24 Hours: My Active Orders 04/30/21 10:38 Peripheral IV Insertion Adult [OM.PC] Stat - Assessment/Plan Last 24 Hours: My Active Orders 04/30/21 10:38 Peripheral IV Insertion Adult [OM.PC] Stat
[2021-04-30] MEDS ORDERED: Sodium Chloride 0.9% 10 ML Syringe FLUSH PRN (10:37)
--- NOTE | 2021-04-30 11:05 | CR ---
Chest: Portable view of the chest was obtained. Comparison: Prior chest CT study of 02/24/21 and chest x-ray also performed on 02/24/21. Heart size and mediastinum are within normal limits for portable technique. Slight mitral annulus calcification is noted. Lungs appear to be clear without acute parenchymal change. Bony structures show nothing acute. Impression: 1. Findings as noted above. 2. Nothing acute is appreciated on portable chest x-ray. Diagnostic code #2
== END 2021-04-30 13:29 | disposition home or self-care (01) ==
LOC: JD.ED 10:20
DX: I48.20 Chronic atrial fibrillation, unspecified (principal); E78.00 Pure hypercholesterolemia, unspecified; I10 Essential (primary) hypertension; I25.2 Old myocardial infarction; M19.90 Unspecified osteoarthritis, unspecified site; Z79.01 Long term (current) use of anticoagulants; Z88.0 Allergy status to penicillin; Z88.8 Allergy status to other drugs, medicaments and biological substances; Z79.82 Long term (current) use of aspirin; Z79.899 Other long term (current) drug therapy
CPT/HCPCS: 36415; 71045; 71045-26; 80053; 83880; 84484; 85025; 85652; 86140; 93005; 93010; 99284; 99285-25

== ENCOUNTER 2021-05-01 00:37 | Inpatient (IN) | payer MEDICARE, OTHER ==
--- NOTE | 2021-05-01 01:08 | EDM.PDOC ---
ED HPI GENERAL MEDICAL PROBLEM - General Chief Complaint: Respiratory Problem Stated Complaint: [place] AMB Time Seen by Provider: 05/01/21 00:40 Source of Information: Reports: Patient, Family History Limitations: Reports: No Limitations - History of Present Illness INITIAL COMMENTS - FREE TEXT/NARRATIVE: Patient is an 85-year-old male who presents to the emergency department today complaining of having some fever or shaking chills at home and ongoing chest pain which is been present for the last 2 and half days. Chest pain is pressure in his anterior chest which is worse with a deep breath and with lying flat and he is feeling short of breath and nauseous. He has had no diaphoresis. Patient denies any cough or dysuria and has had no hematuria or bloody or tarry stools. Patient was seen here earlier today and had lab work done plus EKG and chest x- ray and was discharged home. Family are states that he had similar symptoms years ago when he was septic and was hospitalized for over a week's duration. Patient himself is a somewhat poor historian but states he has never had any cardiac work-up. His chest discomfort is not worse with exertion. Duration: Day(s): (two) Location: Reports: Chest Quality: Reports: Ache Severity: Mild Improves with: Reports: None Worsens with: Reports: Breathing Associated Symptoms: Reports: Cough, Fever/Chills, Shortness of Breath. Denies: cough w sputum - Related Data Allergies Allergy/AdvReac Type Severity Reaction Status Date / Time amoxicillin Allergy Intermediate Rash Verified 05/01/21 00:44 [id number]-Usn Reductase Allergy Unknown Cannot Verified 05/01/21 00:44 Inhibitor Remember aspirin AdvReac Intermediate Bleeding Verified 05/01/21 00:44 Home Meds: Home Meds Aspirin [Ecotrin EC] 81 mg PO DAILY 12/14/19 [History] Metoprolol Succinate 50 mg PO DAILY 12/14/19 [History] lisinopriL [Lisinopril] 40 mg PO DAILY 12/14/19 [History] Apixaban [Eliquis] 5 mg PO BID 01/29/21 [History] Ubidecarenone [COQ-10] 30 mg PO DAILY 01/29/21 [History] Nitroglycerin 0.4 mg SL Q5M PRN #1 bottle 02/24/21 [Rx] Furosemide [Lasix] 20 mg PO DAILY 05/01/21 [History] Past Medical History HEENT History: Reports: Hard of Hearing, Impaired Vision Other HEENT History: bilateral hearing aid Cardiovascular History: Reports: Afib, Heart Murmur, High Cholesterol, Hypertension, [place], Stents, Other (See Below) Other Cardiovascular History: reports having had sepsis around the heart. Respiratory History: Reports: None Gastrointestinal History: Reports: GI Bleed Other Gastrointestinal History: Bleeding Ulcers Genitourinary History: Reports: Prostate Disorder Other Genitourinary History: enlarged prostate Musculoskeletal History: Reports: Arthritis, Fracture Neurological History: Reports: CVA Hematologic History: Reports: Anticoagulation Therapy Oncologic (Cancer) History: Reports: Other (See Below) Other Oncologic History: Skin CA Dermatologic History: Reports: Other (See Below) Other Dermatologic History: Skin [place] - Infectious Disease History Infectious Disease History: Reports: Chicken Pox, Influenza, Measles - Past Surgical History HEENT Surgical History: Reports: Cataract Surgery Cardiovascular Surgical History: Reports: Coronary Artery Stent Other Cardiovascular Surgeries/Procedures: Loop Recorder GI Surgical History: Reports: Hernia, Inguinal Neurological Surgical History: Reports: Other (See Below) Other Neurological Surgeries/Procedures: 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 ED EXAM, GENERAL - Physical Exam Exam: See Below Exam Limited By: No Limitations General Appearance: Alert, No Apparent Distress Head: Normocephalic Neck: Normal Inspection, Supple, Non-Tender, Full Range of Motion Respiratory/Chest: No Respiratory Distress, Lungs Clear, Normal Breath Sounds Cardiovascular: Regular Rate, Rhythm, No Edema, No JVD GI/Abdominal: Normal Bowel Sounds, Soft, Non-Tender, No Organomegaly, No Distention Back Exam: Normal Inspection, Full Range of Motion Extremities: Normal Inspection, Normal Range of Motion Neurological: Alert, Oriented Psychiatric: Normal Affect, Normal Mood Skin Exam: Warm, Dry, Normal Color #1 Interpretation Rhythm: A-Fib P-Wave: Absent QRS: Normal ST-T: Normal QT: Normal Comparison: No Change EKG Interpretation Comments: No ST or T wave changes. No change from earlier EKG today. Course - Vital Signs Text/Narrative:: Patient's lab work including a lactate and white blood cell count were unremarkable. I did not repeat a chest x-ray since no one this morning shows no acute disease. Blood cultures are still pending. I am worried about her patient since he has had rigors twice today has a fever over 102 degrees. I have given him 2 g Rocephin IV. His urine does not show any sign of infection. He does have a history of sepsis that concerns both his family and myself. I believe he warrants admission to the hospital observation status today. Patient was discussed with Dr. Pickett hospitalist. Last Recorded V/S: Last Vital Signs Temp 99 F 05/01/21 00:39 Pulse 91 05/01/21 00:39 Resp 28 H 05/01/21 00:39 BP 146/61 H 05/01/21 00:39 Pulse Ox 95 05/01/21 00:39 - Orders/Labs/Meds Orders: Active Orders 24 hr Category Date Time Status EKG Documentation Completion [RC] STAT Care 05/01/21 01:08 Active CULTURE BLOOD [BC] Stat Lab 05/01/21 01:45 Received CULTURE BLOOD [BC] Stat Lab 05/01/21 01:55 Received Blood Culture x2 Reflex Set [OM.PC] Stat Oth 05/01/21 01:08 Ordered Labs: Laboratory Tests 05/01/21 05/01/21 05/01/21 Range/Units 00:44 00:44 00:44 WBC 11.08 H (4.23-9.07) K/mm3 RBC 4.12 L (4.63-6.08) M/mm3 Hgb 11.3 L (13.7-17.5) gm/dl Hct 35.9 L (40.1-51.0) % MCV 87.1 (79.0-92.2) fl MCH 27.4 (25.7-32.2) pg MCHC 31.5 L (32.2-35.5) g/dl RDW Std Deviation 43.1 (35.1-43.9) fL Plt Count 225 (163-337) K/mm3 MPV 10.2 (9.4-12.3) fl Neutrophils % (Manual) 71 H (40-60) % Band Neutrophils % 10 (0-10) % Lymphocytes % (Manual) 11 L (20-40) % Atypical Lymphs % 0 % Monocytes % (Manual) 8 (2-10) % Eosinophils % (Manual) 0 L (0.8-7.0) % Basophils % (Manual) 0 L (0.2-1.2) Toxic Granulation 1+ slight Platelet Estimate Adequate Plt Morphology Comment See note Hypochromasia 1+ slight Ovalocytes 2+ moderate RBC Morph Comment Abnormal D-Dimer, Quantitative 0.29 (0.19-0.50) mg/L Sodium 141 (136-145) mEq/L Potassium 4.1 (3.5-5.1) mEq/L Chloride 102 (98-107) mEq/L Carbon Dioxide 21 (21-32) mEq/L Anion Gap 22.1 H (5-15) BUN 23 H (7-18) mg/dL Creatinine 1.3 (0.7-1.3) mg/dL Est Cr Clr Drug Dosing 42.30 mL/min Estimated GFR (MDRD) 53 (>60) mL/min BUN/Creatinine Ratio 17.7 (14-18) Glucose 102 H (70-99) mg/dL Lactic Acid (0.4-2.0) mmol/L Calcium 8.8 (8.5-10.1) mg/dL Total Bilirubin 2.7 H (0.2-1.0) mg/dL AST 24 (15-37) U/L ALT 20 (16-63) U/L Alkaline Phosphatase 69 (46-116) U/L CK-MB (CK-2) 0.5 (0-3.6) ng/ml Troponin I 0.021 (0.00-0.056) ng/mL Total Protein 6.7 (6.4-8.2) g/dl Albumin 3.5 (3.4-5.0) g/dl Globulin 3.2 gm/dL Albumin/Globulin Ratio 1.1 (1-2) Urine Color (Yellow) Urine Appearance (Clear) Urine pH (5.0-8.0) Ur Specific [place] (1.005-1.030) Urine Protein (Negative) Urine Glucose (UA) (Negative) Urine Ketones (Negative) Urine Occult Blood (Negative) Urine Nitrite (Negative) Urine Bilirubin (Negative) Urine Urobilinogen (0.2-1.0) Ur Leukocyte Esterase (Negative) Influenza Type A RNA (NEGATIVE) Influenza Type B RNA (NEGATIVE) SARS-CoV-2 RNA (NAHID) (NEGATIVE) 05/01/21 05/01/21 05/01/21 Range/Units 00:44 01:13 01:26 WBC (4.23-9.07) K/mm3 RBC (4.63-6.08) M/mm3 Hgb (13.7-17.5) gm/dl Hct (40.1-51.0) % MCV (79.0-92.2) fl MCH (25.7-32.2) pg MCHC (32.2-35.5) g/dl RDW Std Deviation (35.1-43.9) fL Plt Count (163-337) K/mm3 MPV (9.4-12.3) fl Neutrophils % (Manual) (40-60) % Band Neutrophils % (0-10) % Lymphocytes % (Manual) (20-40) % Atypical Lymphs % % Monocytes % (Manual) (2-10) % Eosinophils % (Manual) (0.8-7.0) % Basophils % (Manual) (0.2-1.2) Toxic Granulation Platelet Estimate Plt Morphology Comment Hypochromasia Ovalocytes RBC Morph Comment D-Dimer, Quantitative (0.19-0.50) mg/L Sodium (136-145) mEq/L Potassium (3.5-5.1) mEq/L Chloride (98-107) mEq/L Carbon Dioxide (21-32) mEq/L Anion Gap (5-15) BUN (7-18) mg/dL Creatinine (0.7-1.3) mg/dL Est Cr Clr Drug Dosing mL/min Estimated GFR (MDRD) (>60) mL/min BUN/Creatinine Ratio (14-18) Glucose (70-99) mg/dL Lactic Acid 1.1 (0.4-2.0) mmol/L Calcium (8.5-10.1) mg/dL Total Bilirubin (0.2-1.0) mg/dL AST (15-37) U/L ALT (16-63) U/L Alkaline Phosphatase (46-116) U/L CK-MB (CK-2) (0-3.6) ng/ml Troponin I (0.00-0.056) ng/mL Total Protein (6.4-8.2) g/dl Albumin (3.4-5.0) g/dl Globulin gm/dL Albumin/Globulin Ratio (1-2) Urine Color Dark yellow (Yellow) Urine Appearance Clear (Clear) Urine pH 7.0 (5.0-8.0) Ur Specific [place] 1.020 (1.005-1.030) Urine Protein 1+ H (Negative) Urine Glucose (UA) Negative (Negative) Urine Ketones 2+ H (Negative) Urine Occult Blood Trace-intact H (Negative) Urine Nitrite Negative (Negative) Urine Bilirubin 1+ H (Negative) Urine Urobilinogen 1.0 (0.2-1.0) Ur Leukocyte Esterase Negative (Negative) Influenza Type A RNA Negative (NEGATIVE) Influenza Type B RNA Negative (NEGATIVE) SARS-CoV-2 RNA (NAHID) Negative (NEGATIVE) Meds: Medications Discontinued Medications Generic Name Dose Route Start Last Admin Trade Name Freq PRN Reason Stop Dose Admin Ceftriaxone Sodium Confirm 05/01/21 03:00 05/01/21 03:04 Ceftriaxone 2 Gm Advvial Administered 05/01/21 03:01 Not Given Dose 2 gm IV .STK-MED ONE Sodium Chloride 1,000 mls @ 250 mls/hr 05/01/21 01:11 05/01/21 01:21 Normal Saline IV 05/01/21 05:10 250 mls/hr ONETIME ONE Administration Ceftriaxone Sodium 2 gm/ 100 mls @ 200 mls/hr 05/01/21 02:55 05/01/21 03:03 Sodium Chloride IV 05/01/21 03:24 200 mls/hr ONETIME ONE Administration Sodium Chloride Confirm 05/01/21 03:00 05/01/21 03:03 Normal Saline Administered 05/01/21 03:01 Not Given Dose 100 mls @ as directed .ROUTE .STK-MED ONE Departure - Departure Time of Disposition: 05:38 Disposition: Refer to Observation Condition: Fair Clinical Impression: Fever and chills, Sepsis - Discharge Information Referrals: Juan José Godwin MD [Primary Care Provider] - Forms: ED Department Discharge Sepsis Event Note (ED) - Evaluation Sepsis Screening Result: Possible Sepsis Risk - Focused Exam Vital Signs: Vital Signs Temp Temp Pulse Resp BP Pulse Ox 05/01/21 00:39 102.5 F H 99 F 91 28 H 146/61 H 95 - My Orders Last 24 Hours: My Active Orders 05/01/21 01:08 EKG Documentation Completion [RC] STAT Blood Culture x2 Reflex Set [OM.PC] Stat 05/01/21 01:45 CULTURE BLOOD [BC] Stat 05/01/21 01:55 CULTURE BLOOD [BC] Stat - Assessment/Plan Last 24 Hours: My Active Orders 05/01/21 01:08 EKG Documentation Completion [RC] STAT Blood Culture x2 Reflex Set [OM.PC] Stat 05/01/21 01:45 CULTURE BLOOD [BC] Stat 05/01/21 01:55 CULTURE BLOOD [BC] Stat
[2021-05-01] MEDS ORDERED: Sodium Chloride 0.9% 1,000 ML IV ONE (01:11)
[2021-05-01 01:58] LABS: CORONAVIRUS COVID-19 NAA NEGATIVE (NEGATIVE)
[2021-05-01] MEDS ORDERED: cefTRIAXone 2 GM in Sodium Chloride 0.9% 100 ML IV ONE (02:55)
[2021-05-01] MEDS ORDERED: cefTRIAXone 2 GM AdvVial IV ONE (03:00)
[2021-05-01] MEDS ORDERED: Sodium Chloride 0.9% 100 ML ONE (03:00)
[2021-05-01] MEDS ORDERED: LORazepam 0.5 MG Tab PO ONE (06:25)
[2021-05-01] MEDS ORDERED: Ondansetron 4 MG/2 ML SDV IVPUSH PRN (07:25)
[2021-05-01] MEDS ORDERED: Magnesium Hydroxide 400 MG/5 ML Susp 30 ML Cup PO PRN (07:34)
[2021-05-01] MEDS ORDERED: Docusate Sodium 100 MG Cap PO PRN (07:34)
[2021-05-01] MEDS ORDERED: Nitroglycerin 0.4 MG Tab.SL SL PRN (07:37)
--- NOTE | 2021-05-01 07:40 | PCM.HP.2 ---
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 He reports the chest pressure is in his anterior chest and is worse with deep inspiration and with lying flat. Denies any hematuria or black or tarry stools. He was seen in our ED earlier in the day for this chest pain. At that time his chest pain had resolved EKG was obtained showing A. fib at 85 bpm. There is no fever. Labs were grossly normal. Troponin was less than 0.017. CRP was 1.9. Chest x-ray was obtained showing nothing acute. He was ultimately discharged home. On this visit he is reporting rigors and a fever of 102 F. Twelve-lead EKG is again obtained and shows A. fib at 90 bpm with a PVC but no acute changes. Labs are obtained with a leukocytosis of 11.08. Hemoglobin 11.3. Platelet 225,000. Neutrophils are elevated 71%. There is 10% band neutrophils noted. 1+ toxic granulation is noted. D-dimer 0.29. Sodium 141. Potassium 4.1. Chloride 102. Carbon dioxide 21. Anion gap 22.1. BUN is 23. Creatinine 1.3. GFR is 53. Glucose 102. Calcium is 8.8. Total bilirubin is 2.7. AST is 24, ALT 20, alkaline phosphatase 69. CK-MB is 0.5. Troponin is 0.021. Albumin is 3.5. Lactic acid is 1.1. UA is obtained and is negative however 1+ protein, 2+ ketones, 1+ bilirubin are noted. Trace intact blood is also noted. Influenza a and B are both negative. SARS Covid 2 RNA is negative. Blood cultures were obtained. Patient is started on 2 g Rocephin. He is given IV fluid bolus and started on IV fluids. He subsequent admitted to the medical floor for management of his SIRS with fever of unknown origin. He carries a history of A. 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 He does have a loop recorder in place. He is a full code. His PCP is Dr. Godwin. - Related Data Allergies/Adverse Reactions: Allergies Allergy/AdvReac Type Severity Reaction Status Date / Time amoxicillin Allergy Intermediate Rash Verified 05/01/21 00:44 Sqyarkm-Ldl-Rmq Reductase Allergy Unknown Cannot Verified 05/01/21 00:44 Inhibitor Remember aspirin AdvReac Intermediate Bleeding Verified 05/01/21 00:44 ceftriaxone AdvReac Cough Verified 05/01/21 16:00 levofloxacin [From Levaquin] AdvReac Leg Cramps Verified 05/01/21 16:00 Home Medications: Home Meds Aspirin [Ecotrin EC] 81 mg PO DAILY 12/14/19 [History] Metoprolol Succinate 50 mg PO DAILY 12/14/19 [History] lisinopriL [Lisinopril] 40 mg PO DAILY 12/14/19 [History] Apixaban [Eliquis] 5 mg PO BID 01/29/21 [History] Ubidecarenone [COQ-10] 30 mg PO DAILY 01/29/21 [History] Nitroglycerin 0.4 mg SL Q5M PRN #1 bottle 02/24/21 [Rx] Furosemide [Lasix] 20 mg PO DAILY 05/01/21 [History] Past Medical History HEENT History: Reports: Hard of Hearing, Impaired Vision Other HEENT History: bilateral hearing aid Cardiovascular History: Reports: Afib, Heart Murmur, High Cholesterol, Hypertension, HI, Stents, Other (See Below) Other Cardiovascular History: reports having had sepsis around the heart. Respiratory History: Reports: None Gastrointestinal History: Reports: GI Bleed Other Gastrointestinal History: Bleeding Ulcers Genitourinary History: Reports: Prostate Disorder Other Genitourinary History: enlarged prostate Musculoskeletal History: Reports: Arthritis, Fracture Neurological History: Reports: CVA Hematologic History: Reports: Anticoagulation Therapy Oncologic (Cancer) History: Reports: Other (See Below) Other Oncologic History: Skin CA Dermatologic History: Reports: Other (See Below) Other Dermatologic History: Skin CA - Infectious Disease History Infectious Disease History: Reports: Chicken Pox, Influenza, Measles - Past Surgical History HEENT Surgical History: Reports: Cataract Surgery Cardiovascular Surgical History: Reports: Coronary Artery Stent Other Cardiovascular Surgeries/Procedures: Loop Recorder GI Surgical History: Reports: Hernia, Inguinal Neurological Surgical History: Reports: Other (See Below) Other Neurological Surgeries/Procedures: 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 Musculoskeletal Surgical History: Reports: Knee Replacement, Other (See Below) Other Musculoskeletal Surgeries/Procedures:: back sx Social & Family History - Family History Family Medical History: No Pertinent Family History - Tobacco Use Tobacco Use Status *Q: Former Tobacco User Used Tobacco, but Quit: Yes Month/Year Tobacco Last Used: - Caffeine Use Caffeine Use: Reports: Coffee - Alcohol Use Number of Drinks Per Day: 2 - Recreational Drug Use Recreational Drug Use: No H&P Review of Systems - Review of Systems: Review Of Systems: See Below General: Reports: Fever, Chills, Malaise, Weakness, Fatigue. Denies: Diaphoresis HEENT: Reports: No Symptoms. Denies: Headaches, Sore Throat Pulmonary: Reports: Pleuritic Chest Pain, Cough, Sputum. Denies: Shortness of Breath, Wheezing Cardiovascular: Reports: Chest Pain, Dyspnea on Exertion. Denies: Palpitations, Orthopnea, Edema, Lightheadedness Gastrointestinal: Reports: Abdominal Pain (Generalized - worse with coughing ), Nausea. Denies: Constipation, Diarrhea, Vomiting Genitourinary: Reports: No Symptoms, Pain Musculoskeletal: Reports: No Symptoms Skin: Reports: No Symptoms. Denies: Cyanosis Psychiatric: Reports: No Symptoms. Denies: Confusion Neurological: Reports: No Symptoms. Denies: Dizziness, Headache, Numbness, Pre- Existing Deficit, Seizure, Syncope, Tingling, Difficulty Walking, Gait Disturbance Hematologic/Lymphatic: Reports: No Symptoms Immunologic: Reports: No Symptoms Exam - Exam Exam: See Below - Vital Signs Vital Signs: Last Vital Signs Temp 98.8 F 05/01/21 06:52 Pulse 89 05/01/21 06:52 Resp 32 H 05/01/21 06:52 BP 163/91 H 05/01/21 06:52 Pulse Ox 94 L 05/01/21 06:52 Weight: 180 lb - Exam Quality Assessment: DVT Prophylaxis. No: Supplemental Oxygen, Urinary Catheter General: Alert, Oriented, Cooperative. No: Mild Distress HEENT: Conjunctiva Clear, Mucosa Moist & [place], Posterior Pharynx Clear Neck: Supple, Trachea Midline Lungs: Normal Respiratory Effort, Decreased Breath Sounds, Crackles (fine at bases ) Cardiovascular: Regular Rate, Irregular Rhythm, Systolic Murmur GI/Abdominal Exam: Normal Bowel Sounds, Soft, Non-Tender, No Distention (Male) Exam: Deferred Rectal (Males) Exam: Deferred Back Exam: Normal Inspection, Full Range of Motion Extremities: Normal Inspection, Normal Range of Motion, Non-Tender, No Pedal Edema, Normal Capillary Refill Peripheral Pulses: 2+: Radial (L), Radial (R) Skin: Warm, Dry, Intact Neurological: Cranial Nerves Intact (Grossly ) Neuro Extensive - Mental Status: Alert, Oriented x3, Normal Mood/Affect - Patient Data Lab Results Last 24 hrs: Laboratory Results - last 24 hr 05/01/21 05/01/21 05/01/21 Range/Units 00:44 00:44 00:44 WBC 11.08 H (4.23-9.07) K/mm3 RBC 4.12 L (4.63-6.08) M/mm3 Hgb 11.3 L (13.7-17.5) gm/dl Hct 35.9 L (40.1-51.0) % MCV 87.1 (79.0-92.2) fl MCH 27.4 (25.7-32.2) pg MCHC 31.5 L (32.2-35.5) g/dl RDW Std Deviation 43.1 (35.1-43.9) fL Plt Count 225 (163-337) K/mm3 MPV 10.2 (9.4-12.3) fl Neutrophils % (Manual) 71 H (40-60) % Band Neutrophils % 10 (0-10) % Lymphocytes % (Manual) 11 L (20-40) % Atypical Lymphs % 0 % Monocytes % (Manual) 8 (2-10) % Eosinophils % (Manual) 0 L (0.8-7.0) % Basophils % (Manual) 0 L (0.2-1.2) Toxic Granulation 1+ slight Platelet Estimate Adequate Plt Morphology Comment See note Hypochromasia 1+ slight Ovalocytes 2+ moderate RBC Morph Comment Abnormal D-Dimer, Quantitative 0.29 (0.19-0.50) mg/L Sodium 141 (136-145) mEq/L Potassium 4.1 (3.5-5.1) mEq/L Chloride 102 (98-107) mEq/L Carbon Dioxide 21 (21-32) mEq/L Anion Gap 22.1 H (5-15) BUN 23 H (7-18) mg/dL Creatinine 1.3 (0.7-1.3) mg/dL Est Cr Clr Drug Dosing 42.30 mL/min Estimated GFR (MDRD) 53 (>60) mL/min BUN/Creatinine Ratio 17.7 (14-18) Glucose 102 H (70-99) mg/dL Lactic Acid (0.4-2.0) mmol/L Calcium 8.8 (8.5-10.1) mg/dL Total Bilirubin 2.7 H (0.2-1.0) mg/dL AST 24 (15-37) U/L ALT 20 (16-63) U/L Alkaline Phosphatase 69 (46-116) U/L CK-MB (CK-2) 0.5 (0-3.6) ng/ml Troponin I 0.021 (0.00-0.056) ng/mL Total Protein 6.7 (6.4-8.2) g/dl Albumin 3.5 (3.4-5.0) g/dl Globulin 3.2 gm/dL Albumin/Globulin Ratio 1.1 (1-2) Urine Color (Yellow) Urine Appearance (Clear) Urine pH (5.0-8.0) Ur Specific [place] (1.005-1.030) Urine Protein (Negative) Urine Glucose (UA) (Negative) Urine Ketones (Negative) Urine Occult Blood (Negative) Urine Nitrite (Negative) Urine Bilirubin (Negative) Urine Urobilinogen (0.2-1.0) Ur Leukocyte Esterase (Negative) Influenza Type A RNA (NEGATIVE) Influenza Type B RNA (NEGATIVE) SARS-CoV-2 RNA (NAHID) (NEGATIVE) 05/01/21 05/01/21 05/01/21 Range/Units 00:44 01:13 01:26 WBC (4.23-9.07) K/mm3 RBC (4.63-6.08) M/mm3 Hgb (13.7-17.5) gm/dl Hct (40.1-51.0) % MCV (79.0-92.2) fl MCH (25.7-32.2) pg MCHC (32.2-35.5) g/dl RDW Std Deviation (35.1-43.9) fL Plt Count (163-337) K/mm3 MPV (9.4-12.3) fl Neutrophils % (Manual) (40-60) % Band Neutrophils % (0-10) % Lymphocytes % (Manual) (20-40) % Atypical Lymphs % % Monocytes % (Manual) (2-10) % Eosinophils % (Manual) (0.8-7.0) % Basophils % (Manual) (0.2-1.2) Toxic Granulation Platelet Estimate Plt Morphology Comment Hypochromasia Ovalocytes RBC Morph Comment D-Dimer, Quantitative (0.19-0.50) mg/L Sodium (136-145) mEq/L Potassium (3.5-5.1) mEq/L Chloride (98-107) mEq/L Carbon Dioxide (21-32) mEq/L Anion Gap (5-15) BUN (7-18) mg/dL Creatinine (0.7-1.3) mg/dL Est Cr Clr Drug Dosing mL/min Estimated GFR (MDRD) (>60) mL/min BUN/Creatinine Ratio (14-18) Glucose (70-99) mg/dL Lactic Acid 1.1 (0.4-2.0) mmol/L Calcium (8.5-10.1) mg/dL Total Bilirubin (0.2-1.0) mg/dL AST (15-37) U/L ALT (16-63) U/L Alkaline Phosphatase (46-116) U/L CK-MB (CK-2) (0-3.6) ng/ml Troponin I (0.00-0.056) ng/mL Total Protein (6.4-8.2) g/dl Albumin (3.4-5.0) g/dl Globulin gm/dL Albumin/Globulin Ratio (1-2) Urine Color Dark yellow (Yellow) Urine Appearance Clear (Clear) Urine pH 7.0 (5.0-8.0) Ur Specific [place] 1.020 (1.005-1.030) Urine Protein 1+ H (Negative) Urine Glucose (UA) Negative (Negative) Urine Ketones 2+ H (Negative) Urine Occult Blood Trace-intact H (Negative) Urine Nitrite Negative (Negative) Urine Bilirubin 1+ H (Negative) Urine Urobilinogen 1.0 (0.2-1.0) Ur Leukocyte Esterase Negative (Negative) Influenza Type A RNA Negative (NEGATIVE) Influenza Type B RNA Negative (NEGATIVE) SARS-CoV-2 RNA (NAHID) Negative (NEGATIVE) Result Diagrams: 05/01/21 00:44 05/01/21 00:44 Sepsis Event Note - Evaluation Sepsis Screening Result: Sepsis Risk - Focused Exam Vital Signs: Vital Signs Temp Temp Temp Pulse Pulse Resp BP 05/01/21 06:52 98.8 F 89 32 H 163/91 H 05/01/21 05:00 79 18 05/01/21 04:00 79 16 05/01/21 03:00 83 18 05/01/21 02:00 83 05/01/21 01:00 88 05/01/21 00:39 102.5 F H 99 F 91 28 H BP Pulse Ox 05/01/21 06:52 94 L 05/01/21 05:00 123/55 L 96 05/01/21 04:00 118/54 L 91 L 05/01/21 03:00 130/54 L 94 L 05/01/21 02:00 127/60 95 05/01/21 01:00 138/68 94 L 05/01/21 00:39 146/61 H 95 - Problem List (1) Heart murmur SNOMED Code(s): 73765936 ICD Code: R01.1 - CARDIAC MURMUR, UNSPECIFIED Status: Chronic Priority: Low Current Visit: No (2) HLD (hyperlipidemia) SNOMED Code(s): 49246291 ICD Code: E78.5 - HYPERLIPIDEMIA, UNSPECIFIED Status: Chronic Priority: Low Current Visit: No Qualifiers: Hyperlipidemia type: unspecified Qualified Code(s): E78.5 - Hyperlipidemia, unspecified (3) HTN (hypertension) SNOMED Code(s): 45079502 ICD Code: I10 - ESSENTIAL (PRIMARY) HYPERTENSION Status: Chronic Priority: Medium Current Visit: No Qualifiers: Hypertension type: unspecified Qualified Code(s): I10 - Essential (primary) hypertension (4) History of HI (myocardial infarction) SNOMED Code(s): 211142719 ICD Code: I25.2 - OLD MYOCARDIAL INFARCTION Status: Chronic Priority: Low Current Visit: No (5) History of coronary artery stent placement SNOMED Code(s): 116981238, 854750401 ICD Code: Z95.5 - PRESENCE OF CORONARY ANGIOPLASTY IMPLANT AND GRAFT Status: Chronic Priority: Low Current Visit: No (6) 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 SNOMED Code(s): 263571376 ICD Code: Z86.79 - PERSONAL HISTORY OF OTHER DISEASES OF THE CIRCULATORY SYSTEM Status: Chronic Priority: Medium Current Visit: No (7) Prostate disorder SNOMED Code(s): 83082654 ICD Code: N42.9 - DISORDER OF PROSTATE, UNSPECIFIED Status: Chronic Priority: Low Current Visit: No (8) Arthritis SNOMED Code(s): 0736616 ICD Code: M19.90 - UNSPECIFIED OSTEOARTHRITIS, UNSPECIFIED SITE Status: Chronic Priority: Low Current Visit: No (9) History of CVA with residual deficit SNOMED Code(s): 293538190 ICD Code: I69.30 - UNSPECIFIED SEQUELAE OF CEREBRAL INFARCTION Status: Chronic Priority: Low Current Visit: No (10) Chronic anticoagulation SNOMED Code(s): 952427651 ICD Code: Z79.01 - BIOLOGICAL ENGINEER (CURRENT) USE OF ANTICOAGULANTS Status: Chronic Priority: Medium Current Visit: Yes (11) History of skin cancer SNOMED Code(s): 051013920 ICD Code: Z85.828 - PERSONAL HISTORY OF OTHER MALIGNANT NEOPLASM OF SKIN Status: Acute Current Visit: Yes (12) Fever and chills SNOMED Code(s): 439827998 ICD Code: R50.9 - FEVER, UNSPECIFIED Status: Acute Priority: High Current Visit: Yes (13) Atrial fibrillation SNOMED Code(s): 81810740 ICD Code: I48.91 - UNSPECIFIED ATRIAL FIBRILLATION Status: Chronic Priority: Low Current Visit: No Qualifiers: Atrial fibrillation type: unspecified chronic Qualified Code(s): I48.20 - Chronic atrial fibrillation, unspecified; I48.2 - Chronic atrial fibrillation (14) Atypical chest pain SNOMED Code(s): 676795832 ICD Code: R07.89 - OTHER CHEST PAIN Status: Acute Priority: Medium Current Visit: Yes (15) Hyperbilirubinemia SNOMED Code(s): 76496006 ICD Code: E80.6 - OTHER DISORDERS OF BILIRUBIN METABOLISM Status: Chronic Priority: Low Current Visit: Yes (16) SIRS (systemic inflammatory response syndrome) SNOMED Code(s): 809832388 ICD Code: R65.10 - SIRS OF NON-INFECTIOUS ORIGIN W/O ACUTE ORGAN DYSFUNCTION Status: Acute Priority: High Current Visit: Yes (17) Nausea SNOMED Code(s): 308473350 ICD Code: R11.0 - NAUSEA Status: Acute Priority: High Current Visit: Yes (18) High anion gap metabolic acidosis SNOMED Code(s): 93549195 ICD Code: E87.2 - ACIDOSIS Status: Acute Priority: High Current Visit: Yes Problem List Initiated/Reviewed/Updated: Yes Orders Last 24hrs: Active Orders 24 hr Category Date Time Status Admission Status [Patient Status] [ADT] Routine ADT 05/01/21 05:51 Active EKG Documentation Completion [RC] STAT Care 05/01/21 01:08 Active CULTURE BLOOD [BC] Stat Lab 05/01/21 01:45 Received CULTURE BLOOD [BC] Stat Lab 05/01/21 01:55 Received Acetaminophen [TylenoL] Med 05/01/21 07:25 Active 650 mg PO Q4H PRN Ondansetron [Zofran] Med 05/01/21 07:25 Active 4 mg IVPUSH Q4H PRN Blood Culture x2 Reflex Set [OM.PC] Stat Oth 05/01/21 01:08 Ordered Medication Orders Acetaminophen (Acetaminophen 325 Mg Tab) 650 mg PO Q4H PRN PRN Reason: Pain Ondansetron HCl (Ondansetron 4 Mg/2 Ml Sdv) 4 mg IVPUSH Q4H PRN PRN Reason: Nausea Assessment/Plan Comment:: Assessment - day of admission 05/01/2021 * 85-year-old male who 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 He does have a loop recorder in place. * Reports the chest pressure is in his anterior chest and is worse with deep inspiration and with lying flat * Denies any hematuria or black or tarry stools. * Was seen in our ED earlier in the day for this chest pain. At that time his chest pain had resolved EKG was obtained showing A. fib at 85 bpm. There is no fever. Labs were grossly normal. Troponin was less than 0.017. CRP was 1.9. Chest x-ray was obtained showing nothing acute. He was ultimately discharged home. * Now reporting rigors and a fever of 102 F. * Twelve-lead EKG is again obtained and shows A. fib at 90 bpm with a PVC but no acute changes. * Labs are obtained: * WBC 11.08. * Hemoglobin 11.3. * Platelet 225,000. * Neutrophils are elevated 71%. There is 10% band neutrophils noted. * 1+ toxic granulation is noted. * D-dimer 0.29. * Sodium 141. * Potassium 4.1. * Chloride 102. * Carbon dioxide 21. * Anion gap 22.1. * BUN is 23. Creatinine 1.3. GFR is 53. * Glucose 102. * Calcium is 8.8. * Total bilirubin is 2.7. * AST is 24, ALT 20, alkaline phosphatase 69. * CK-MB is 0.5. * Troponin is 0.021. * Albumin is 3.5. * Lactic acid is 1.1. * UA is obtained and is negative however 1+ protein, 2+ ketones, 1+ bilirubin are noted. Trace intact blood is also noted. * Influenza a and B are both negative. * SARS Covid 2 RNA is negative. * Blood cultures were obtained. * Patient is started on 2 g Rocephin. He is given IV fluid bolus and started on IV fluids. * SIRS not Sepsis as no end organ dysfunction * Admitted to the medical floor for management of his SIRS with fever of unknown origin. PLAN: Fever and chills SIRS without end organ dysfunction Atypical chest pain Elevated BNP High anion gap metabolic acidosis Nausea * Chest/abdomen/pelvis CT * Continue 2gm rocephin * Tylenol for fevers * Await blood cultures * IS/Acapella * Monitor daily labs * Telemetry * Procalcitonin ordered * Echocardiogram * Antiemetics PRN * IV fluids as ordered Heart murmur HLD (hyperlipidemia) HTN (hypertension) History of HI (myocardial infarction) History of coronary artery stent placement 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 History of CVA with residual deficit Chronic anticoagulation Atrial fibrillation * No acute concerns * Home medications as ordered * Telemetry * Caution with IV fluids Hyperbilirubinemia * Appears chronic as has been elevated on all prior visits * Direct/indirect bilirubin * Monitor CMP Arthritis History of skin cancer Prostate disorder * No acute concerns * Monitor Code status: Full Code PCP: Dr. Godwin VTE prophylaxis: Continue home eliquis Disposition: Admitted to [facility] with telemetry for further work-up as to cause of fever and chest pain. Likely discharge in 2 to 4 days. - Mortality Measure Prognosis:: Good <Moy Meek Jr - Last Filed: 05/02/21 05:54> H&P History of Present Illness - General Admit Problem/Dx: Admission Diagnosis/Problem Admission Diagnosis/Problem Sepsis Exam - Vital Signs Vital Signs: Last Vital Signs Temp 97.0 F 05/02/21 03:40 Pulse 80 05/02/21 03:40 Resp 16 05/02/21 04:00 BP 134/63 05/02/21 03:40 Pulse Ox 98 05/02/21 03:40 - Patient Data Lab Results Last 24 hrs: Laboratory Results - last 24 hr 05/01/21 05/02/21 Range/Units 00:46 05:02 WBC 7.85 (4.23-9.07) K/mm3 RBC 3.71 L (4.63-6.08) M/mm3 Hgb 10.0 L (13.7-17.5) gm/dl Hct 33.0 L (40.1-51.0) % MCV 88.9 (79.0-92.2) fl MCH 27.0 (25.7-32.2) pg MCHC 30.3 L (32.2-35.5) g/dl RDW Std Deviation 44.5 H (35.1-43.9) fL Plt Count 162 L (163-337) K/mm3 MPV 10.2 (9.4-12.3) fl Neut % (Auto) 85.9 H (34.0-67.9) % Lymph % (Auto) 7.5 L (21.8-53.1) % [place] % (Auto) 6.4 (5.3-12.2) % Eos % (Auto) 0 L (0.8-7.0) Baso % (Auto) 0.1 (0.1-1.2) % Neut # (Auto) 6.74 H (1.78-5.38) K/mm3 Lymph # (Auto) 0.59 L (1.32-3.57) K/mm3 [place] # (Auto) 0.50 (0.30-0.82) K/mm3 Eos # (Auto) 0.00 L (0.04-0.54) K/mm3 Baso # (Auto) 0.01 (0.01-0.08) K/mm3 Procalcitonin 0.42 H ng/mL Result Diagrams: 05/02/21 05:02 05/01/21 00:44 Nasir Results Last 24 hrs: Microbiology 05/01/21 01:55 Aerobic Blood Culture - Preliminary Blood - Venous - Lab Draw Gram Positive Cocci In Chains Anaerobic Blood Culture - Preliminary Gram Positive Cocci In Chains 05/01/21 01:45 Aerobic Blood Culture - Preliminary Blood - Venous Gram Positive Cocci In Chains Anaerobic Blood Culture - Preliminary Gram Positive Cocci In Chains Sepsis Event Note - Focused Exam Vital Signs: Vital Signs Temp Pulse Resp BP Pulse Ox 05/02/21 04:00 16 05/02/21 03:40 97.0 F 80 16 134/63 98 05/02/21 03:00 18 05/02/21 02:00 17 05/02/21 01:00 19 05/02/21 00:00 20 05/01/21 23:00 30 H 05/01/21 22:11 98.8 F 94 16 124/58 L 96 05/01/21 22:00 29 H 05/01/21 21:14 100.4 F 83 23 H 193/91 H 93 L 05/01/21 21:00 100.4 F 23 H 05/01/21 20:52 100.9 F H 95 23 H 92 L 05/01/21 20:47 101.1 F H 102 H 30 H 86 L 05/01/21 20:43 99.9 F 29 H 05/01/21 20:00 22 H 05/01/21 19:33 97.5 F 70 18 134/68 94 L 05/01/21 19:00 19 05/01/21 18:00 19 Orders Last 24hrs: Active Orders 24 hr Category Date Time Status Patient Status [ADT] Routine ADT 05/01/21 11:46 Active Acapella [RT Chest Physiotherapy] [RC] BID Care 05/01/21 12:36 Active Cardiac Monitoring [RC] CONTINUOUS Care 05/01/21 07:34 Active Height and Weight [RC] 06 Care 05/01/21 07:34 Active Intake and Output [RC] 04,16 Care 05/01/21 07:34 Active Oxygen Therapy [RC] ASDIRECTED Care 05/01/21 07:34 Active Pulse Oximetry [RC] PRN Care 05/01/21 07:34 Active RT Incentive Spirometry [RC] Q1HWA Care 05/01/21 12:36 Active Up With Assistance [RC] BID Care 05/01/21 07:34 Active Vital Signs [RC] 04,10,16,22 Care 05/01/21 07:34 Active Consult to Case Management/Team Guide [CONS] Cons 05/01/21 07:34 Active Routine OT Evaluation and Treatment [CONS] Routine Cons 05/01/21 07:36 Active PT Evaluation and Treatment [CONS] Routine Cons 05/01/21 07:36 Active Regular Diet [DIET] Diet 05/01/21 Breakfast Active BILIRUBIN DIRECT/INDIRECT [CHEM] Routine Lab 05/02/21 05:02 Received C-REACTIVE PROTEIN [CHEM] AM Lab 05/02/21 05:02 Received C-REACTIVE PROTEIN [CHEM] AM Lab 05/03/21 05:11 Ordered C-REACTIVE PROTEIN [CHEM] AM Lab 05/04/21 05:11 Ordered C-REACTIVE PROTEIN [CHEM] AM Lab 05/05/21 05:11 Ordered CBC WITH AUTO DIFF [HEME] AM Lab 05/02/21 05:02 Results CBC WITH AUTO DIFF [HEME] AM Lab 05/03/21 05:11 Ordered CBC WITH AUTO DIFF [HEME] AM Lab 05/04/21 05:11 Ordered CBC WITH AUTO DIFF [HEME] AM Lab 05/05/21 05:11 Ordered COMPREHENSIVE METABOLIC PN,CMP [CHEM] AM Lab 05/02/21 05:02 Received COMPREHENSIVE METABOLIC PN,CMP [CHEM] AM Lab 05/03/21 05:11 Ordered COMPREHENSIVE METABOLIC PN,CMP [CHEM] AM Lab 05/04/21 05:11 Ordered COMPREHENSIVE METABOLIC PN,CMP [CHEM] AM Lab 05/05/21 05:11 Ordered MAGNESIUM [CHEM] AM Lab 05/02/21 05:02 Received MAGNESIUM [CHEM] AM Lab 05/03/21 05:11 Ordered MAGNESIUM [CHEM] AM Lab 05/04/21 05:11 Ordered MAGNESIUM [CHEM] AM Lab 05/05/21 05:11 Ordered VANCOMYCIN TROUGH [CHEM] Timed Lab 05/04/21 16:00 Ordered Acetaminophen [TylenoL] Med 05/01/21 07:25 Active 650 mg PO Q4H PRN Apixaban [Eliquis] Med 05/01/21 09:00 Active 5 mg PO BID Aspirin [Halfprin] Med 05/01/21 09:00 Active 81 mg PO DAILY Docusate Sodium [Colace] Med 05/01/21 07:34 Active 100 mg PO DAILY PRN Furosemide [Lasix] Med 05/01/21 09:00 Active 20 mg PO DAILY Magnesium Hydroxide [Milk of Magnesia] Med 05/01/21 07:34 Active 30 ml PO Q12H PRN Metoprolol Succinate [Toprol XL] Med 05/01/21 09:00 Active 50 mg PO DAILY Nitroglycerin [Nitrostat] Med 05/01/21 07:37 Active 0.4 mg SL Q5M PRN Ondansetron [Zofran] Med 05/01/21 07:25 Active 4 mg IVPUSH Q4H PRN Pharmacy to Dose - Vancomycin Med 05/01/21 16:00 Active 0 dose .XX ASDIRECTED PRN Sodium Chloride 0.9% [Normal Saline] 1,000 ml Med 05/01/21 07:45 Active IV ASDIRECTED Vancomycin 1 gm Med 05/02/21 11:00 Active Vancomycin 250 mg Sodium Chloride 0.9% [Normal Saline] 250 ml IV Q18H lisinopriL [Prinivil] Med 05/01/21 09:00 Active 40 mg PO DAILY Code Status [Resuscitation Status] Routine Resus Stat 05/01/21 08:39 Ordered Medication Orders Acetaminophen (Acetaminophen 325 Mg Tab) 650 mg PO Q4H PRN PRN Reason: Pain Last Admin: 05/01/21 21:00 Dose: 650 mg Documented by: Admin: 05/01/21 08:40 Dose: 650 mg Documented by: YOSSI Apixaban (Apixaban 5 Mg Tab) 5 mg PO BID [place] Last Admin: 05/01/21 21:00 Dose: 5 mg Documented by: Admin: 05/01/21 08:26 Dose: 5 mg Documented by: YOSSI Aspirin (Aspirin 81 Mg Tab.Ec) 81 mg PO DAILY [facility] Last Admin: 05/01/21 08:26 Dose: 81 mg Documented by: YOSSI Docusate Sodium (Docusate Sodium 100 Mg Cap) 100 mg PO DAILY PRN PRN Reason: Constipation Furosemide (Furosemide 20 Mg Tab) 20 mg PO DAILY [facility] Last Admin: 05/01/21 08:26 Dose: 20 mg Documented by: YOSSI Sodium Chloride (Normal Saline) 1,000 mls @ 150 mls/hr IV ASDIRECTED [facility] Last Admin: 05/02/21 03:46 Dose: 150 mls/hr Documented by: Infusion: 05/02/21 03:46 Dose: 150 mls/hr Documented by: Admin: 05/01/21 22:08 Dose: 150 mls/hr Documented by: Infusion: 05/01/21 21:57 Dose: 150 mls/hr Documented by: Admin: 05/01/21 15:16 Dose: 150 mls/hr Documented by: Infusion: 05/01/21 15:05 Dose: 150 mls/hr Documented by: [email or web address] Admin: 05/01/21 08:24 Dose: 150 mls/hr Documented by: YOSSI Vancomycin HCl 1 gm/Vancomycin HCl 250 mg/ Sodium Chloride 250 mls @ 166 mls/hr IV Q18H [facility] Lisinopril (Lisinopril 20 Mg Tab) 40 mg PO DAILY [facility] Last Admin: 05/01/21 08:35 Dose: 40 mg Documented by: YOSSI Magnesium Hydroxide (Magnesium Hydroxide 400 Mg/5 Ml Susp 30 Ml Cup) 30 ml PO Q12H PRN PRN Reason: Constipation Metoprolol Succinate (Metoprolol Succinate 50 Mg Tab.Er) 50 mg PO DAILY [facility] Last Admin: 05/01/21 08:36 Dose: 50 mg Documented by: YOSSI Nitroglycerin (Nitroglycerin 0.4 Mg Tab.Sl) 0.4 mg SL Q5M PRN PRN Reason: Chest Pain Ondansetron HCl (Ondansetron 4 Mg/2 Ml Sdv) 4 mg IVPUSH Q4H PRN PRN Reason: Nausea Last Admin: 05/01/21 08:25 Dose: 4 mg Documented by: YOSSI Vancomycin HCl (Pharmacy To Dose - Vancomycin) 0 dose .XX ASDIRECTED PRN PRN Reason: RX TO DOSE VANCOMYCIN Assessment/Plan Comment:: Case discussed in full. Agree with evaluation, assessment and plan.
[2021-05-01] MEDS: Sodium Chloride 0.9% 1,000 ML IV SCH ×3 (08:24→22:08)
[2021-05-01] MEDS: Apixaban 5 MG Tab PO SCH ×2 (08:26→21:00)
[2021-05-01] MEDS: Aspirin 81 MG Tab.EC PO SCH (08:26)
[2021-05-01] MEDS: Furosemide 20 MG Tab PO SCH (08:26)
[2021-05-01] MEDS: Lisinopril 20 MG Tab PO SCH (08:35)
[2021-05-01] MEDS: Metoprolol Succinate 50 MG Tab.ER PO SCH (08:36)
[2021-05-01] MEDS: Acetaminophen 325 MG Tab PO PRN ×2 (08:40→21:00)
[2021-05-01] MEDS ORDERED: Iopamidol 612 MG/ML 100 ML Bottle IVPUSH ONE (08:59)
[2021-05-01] MEDS ORDERED: Diatrizoate Meglumine/Diatrizoate Sodium 37% 120 ML Bottle PO ONE (08:59)
[2021-05-01] MEDS ORDERED: Sodium Chloride 0.9% 10 ML Syringe FLUSH PRN (08:59)
--- NOTE | 2021-05-01 10:51 | CT ---
CT chest Technique: Multiple axial sections were obtained from above the lung apices inferiorly through the lung bases. Intravenous contrast was utilized. Reconstructed coronal and sagittal images were obtained. Comparison: Prior CT chest study performed as a pulmonary angiogram exam dated 02/24/21. Findings: Small bilateral pleural effusions are seen which are slightly worse on the right side. These findings are fairly similar to previous exam. Thoracic aorta shows mild atherosclerotic calcification with no aneurysm. Mitral annulus calcification is noted. Coronary artery calcification is also seen. Small lymph nodes are seen within the mediastinum which are within normal limits. No axillary adenopathy is seen. Heart is slightly enlarged. Small density which has a nodular appearance is seen within the approximate superior segment of the right lower lung. This finding measures 1.6 cm. Linear densities are noted within both lung bases most likely due to atelectasis. Bone window settings were reviewed which show no acute osseous finding. Impression: 1. Small bilateral pleural effusion which are stable from prior chest CT study. 2. Linear densities within both lung bases most likely representing atelectasis. Focal nodular density is noted within the superior segment of the right lower lung measuring 1.6 cm. This is not appreciated on prior exam and could represent small area of pneumonia as well as a small mass. Follow-up is recommended in 3-4 months. 3. Other findings as noted above which are felt to be stable. Diagnostic code #3 CT abdomen and pelvis Technique: Multiple axial sections were obtained from above the dome of the diaphragm inferiorly to the pubic symphysis. Intravenous and oral contrast was utilized. Delayed images were also obtained through the abdomen and pelvis. Comparison: Prior right upper quadrant abdominal ultrasound of 01/29/21, no prior CT abdomen or pelvis study is available. Findings: Small hiatal hernia is noted. Liver contains no focal parenchymal abnormality. Spleen is within normal limits. Adrenal glands show no nodule. Pancreas is atrophic without discrete abnormality. Gallbladder contains no calcified gallstones. Kidneys show no abnormal calcifications. Cyst is noted within the left kidney measuring 3.3 cm. Additional cyst is noted within the left kidney measuring 9 mm. Delayed images show contrast being excreted into both renal pelvis but no contrast is noted within the ureters or bladder. Abdominal aorta shows no aneurysm. No retroperitoneal adenopathy or mesenteric abnormalities are seen. Atherosclerotic calcification continues into the iliac vessels. No pelvic mass or adenopathy is seen. Slight increased stool is noted throughout the colon. Appendix is not definitely visualized. Prostate gland is somewhat enlarged. Bone window settings were reviewed which show disc space narrowing and vacuum phenomena within the L5-S1 disc. No acute osseous abnormality is appreciated. Impression: 1. Mild increased stool within the colon. 2. Other findings believed to be chronic as noted above. Nothing acute is appreciated on CT study of the abdomen and pelvis. Diagnostic code #2
[2021-05-01] MEDS ORDERED: Azithromycin 500 MG in Sodium Chloride 0.9% 250 ML IV SCH (12:00)
[2021-05-01] MEDS ORDERED: Vancomycin 1 GM, Vancomycin 500 MG in Sodium Chloride 0.9% 500 ML IV ONE (17:00)
[2021-05-02] MEDS ORDERED: cefTRIAXone 2 GM in Sodium Chloride 0.9% 100 ML IV SCH (03:00)
[2021-05-02] MEDS: Sodium Chloride 0.9% 1,000 ML IV SCH (03:46)
--- NOTE | 2021-05-02 08:32 | PCM.PN ---
<Clifford Andersen - Last Filed: 05/02/21 10:50> - General Info Date of Service: 05/02/21 Admission Dx/Problem (Free Text): Admission Diagnosis/Problem Admission Diagnosis/Problem Sepsis Functional Status: Reports: Pain Controlled, Tolerating Diet, Ambulating, Urinating, Incentive Spirometry, Other (Acapella ). Denies: New Symptoms - Review of Systems General: Reports: No Symptoms. Denies: Fever, Weakness, Fatigue, Malaise, Chills HEENT: Reports: No Symptoms. Denies: Headaches, Sore Throat Pulmonary: Reports: Shortness of Breath, Pleuritic Chest Pain, Cough. Denies: Sputum, Wheezing Cardiovascular: Reports: No Symptoms, Dyspnea on Exertion. Denies: Chest Pain, Palpitations, Edema Gastrointestinal: Reports: No Symptoms. Denies: Abdominal Pain, Constipation, Decreased Appetite, Diarrhea, Nausea, Vomiting Genitourinary: Reports: No Symptoms. Denies: Pain Musculoskeletal: Reports: No Symptoms Skin: Reports: No Symptoms. Denies: Cyanosis Neurological: Reports: No Symptoms. Denies: Confusion, Dizziness, Headache, Numbness, Pre-Existing Deficit, Tingling, Difficulty Walking, Weakness, Gait Disturbance Psychiatric: Reports: No Symptoms - Patient Data Vitals - Most Recent: Last Vital Signs Temp 97.0 F 05/02/21 03:40 Pulse 80 05/02/21 03:40 Resp 16 05/02/21 04:00 BP 134/63 05/02/21 03:40 Pulse Ox 98 05/02/21 03:40 Weight - Most Recent: 186 lb 1.6 oz I&O - Last 24 Hours: Intake & Output 05/01/21 05/02/21 05/02/21 22:59 06:59 14:59 Intake Total 780 2710 Output Total 300 Balance 780 2410 Lab Results Last 24 Hours: Laboratory Results - last 24 hr 05/01/21 05/02/21 05/02/21 Range/Units 00:46 05:02 05:02 WBC 7.85 (4.23-9.07) K/mm3 RBC 3.71 L (4.63-6.08) M/mm3 Hgb 10.0 L (13.7-17.5) gm/dl Hct 33.0 L (40.1-51.0) % MCV 88.9 (79.0-92.2) fl MCH 27.0 (25.7-32.2) pg MCHC 30.3 L (32.2-35.5) g/dl RDW Std Deviation 44.5 H (35.1-43.9) fL Plt Count 162 L (163-337) K/mm3 MPV 10.2 (9.4-12.3) fl Neut % (Auto) 85.9 H (34.0-67.9) % Lymph % (Auto) 7.5 L (21.8-53.1) % [place] % (Auto) 6.4 (5.3-12.2) % Eos % (Auto) 0 L (0.8-7.0) Baso % (Auto) 0.1 (0.1-1.2) % Neut # (Auto) 6.74 H (1.78-5.38) K/mm3 Lymph # (Auto) 0.59 L (1.32-3.57) K/mm3 [place] # (Auto) 0.50 (0.30-0.82) K/mm3 Eos # (Auto) 0.00 L (0.04-0.54) K/mm3 Baso # (Auto) 0.01 (0.01-0.08) K/mm3 Manual Slide Review Abnormal smear Sodium 142 (136-145) mEq/L Potassium 3.8 (3.5-5.1) mEq/L Chloride 110 H (98-107) mEq/L Carbon Dioxide 21 (21-32) mEq/L Anion Gap 14.8 (5-15) BUN 24 H (7-18) mg/dL Creatinine 0.9 (0.7-1.3) mg/dL Est Cr Clr Drug Dosing 61.10 mL/min Estimated GFR (MDRD) > 60 (>60) mL/min BUN/Creatinine Ratio 26.7 H (14-18) Glucose 101 H (70-99) mg/dL Calcium 8.0 L (8.5-10.1) mg/dL Magnesium 1.8 (1.8-2.4) mg/dL Total Bilirubin 1.2 H (0.2-1.0) mg/dL Direct Bilirubin 0.30 H (0.0-0.2) mg/dl Indirect Bilirubin 0.9 (0.1-1.0) mg/dL AST 39 H (15-37) U/L ALT 20 (16-63) U/L Alkaline Phosphatase 81 (46-116) U/L C-Reactive Protein 10.6 H* (<1.0) mg/dL Total Protein 5.9 L (6.4-8.2) g/dl Albumin 2.8 L (3.4-5.0) g/dl Globulin 3.1 gm/dL Albumin/Globulin Ratio 0.9 L (1-2) Procalcitonin 0.42 H ng/mL Nasir Results Last 24 Hours: Microbiology 05/01/21 01:55 Aerobic Blood Culture - Preliminary Blood - Venous - Lab Draw Gram Positive Cocci In Chains Anaerobic Blood Culture - Preliminary Gram Positive Cocci In Chains 05/01/21 01:45 Aerobic Blood Culture - Preliminary Blood - Venous Gram Positive Cocci In Chains Anaerobic Blood Culture - Preliminary Gram Positive Cocci In Chains Med Orders - Current: Current Medications Acetaminophen (Acetaminophen 325 Mg Tab) 650 mg PO Q4H PRN PRN Reason: Pain Last Admin: 05/01/21 21:00 Dose: 650 mg Documented by: Apixaban (Apixaban 5 Mg Tab) 5 mg PO BID [facility] Last Admin: 05/01/21 21:00 Dose: 5 mg Documented by: Aspirin (Aspirin 81 Mg Tab.Ec) 81 mg PO DAILY [facility] Last Admin: 05/01/21 08:26 Dose: 81 mg Documented by: Docusate Sodium (Docusate Sodium 100 Mg Cap) 100 mg PO DAILY PRN PRN Reason: Constipation Furosemide (Furosemide 20 Mg Tab) 20 mg PO DAILY [facility] Last Admin: 05/01/21 08:26 Dose: 20 mg Documented by: Sodium Chloride (Normal Saline) 1,000 mls @ 150 mls/hr IV ASDIRECTED [facility] Last Admin: 05/02/21 03:46 Dose: 150 mls/hr Documented by: Vancomycin HCl 1 gm/Vancomycin HCl 250 mg/ Sodium Chloride 250 mls @ 166 mls/hr IV Q18H [facility] Lisinopril (Lisinopril 20 Mg Tab) 40 mg PO DAILY [facility] Last Admin: 05/01/21 08:35 Dose: 40 mg Documented by: Magnesium Hydroxide (Magnesium Hydroxide 400 Mg/5 Ml Susp 30 Ml Cup) 30 ml PO Q12H PRN PRN Reason: Constipation Metoprolol Succinate (Metoprolol Succinate 50 Mg Tab.Er) 50 mg PO DAILY [facility] Last Admin: 05/01/21 08:36 Dose: 50 mg Documented by: Nitroglycerin (Nitroglycerin 0.4 Mg Tab.Sl) 0.4 mg SL Q5M PRN PRN Reason: Chest Pain Ondansetron HCl (Ondansetron 4 Mg/2 Ml Sdv) 4 mg IVPUSH Q4H PRN PRN Reason: Nausea Last Admin: 05/01/21 08:25 Dose: 4 mg Documented by: Vancomycin HCl (Pharmacy To Dose - Vancomycin) 0 dose .XX ASDIRECTED PRN PRN Reason: RX TO DOSE VANCOMYCIN Discontinued Medications Ceftriaxone Sodium (Ceftriaxone 2 Gm Advvial) Confirm Administered Dose 2 gm IV .STK-MED ONE Stop: 05/01/21 03:01 Last Admin: 05/01/21 03:04 Dose: Not Given Documented by: Diatrizoate Meglum/Diatrizoate Sod (Diatrizoate Meglumine/Diatrizoate Sodium 37% 120 Ml Bottle) 120 ml PO ONETIME ONE Stop: 05/01/21 09:00 Last Admin: 05/01/21 10:06 Dose: 30 ml Documented by: Sodium Chloride (Normal Saline) 1,000 mls @ 250 mls/hr IV ONETIME ONE Stop: 05/01/21 05:10 Last Admin: 05/01/21 01:21 Dose: 250 mls/hr Documented by: Ceftriaxone Sodium 2 gm/ (Sodium Chloride) 100 mls @ 200 mls/hr IV ONETIME ONE Stop: 05/01/21 03:24 Last Admin: 05/01/21 03:03 Dose: 200 mls/hr Documented by: Sodium Chloride (Normal Saline) Confirm Administered Dose 100 mls @ as directed .ROUTE .STK-MED ONE Stop: 05/01/21 03:01 Last Admin: 05/01/21 03:03 Dose: Not Given Documented by: Ceftriaxone Sodium 2 gm/ (Sodium Chloride) 100 mls @ 200 mls/hr IV Q24H [facility] Azithromycin 500 mg/ Sodium (Chloride) 250 mls @ 250 mls/hr IV Q24H [facility] Last Admin: 05/01/21 15:22 Dose: 250 mls/hr Documented by: Vancomycin HCl 1 gm/Vancomycin HCl 500 mg/ Sodium Chloride 500 mls @ 250 mls/hr IV ONETIME ONE Stop: 05/01/21 18:59 Last Admin: 05/01/21 16:37 Dose: 250 mls/hr Documented by: Iopamidol (Iopamidol 612 Mg/Ml 100 Ml Bottle) 100 ml IVPUSH ONETIME ONE Stop: 05/01/21 09:00 Last Admin: 05/01/21 10:06 Dose: 100 ml Documented by: Lorazepam (Lorazepam 0.5 Mg Tab) 0.5 mg PO ONETIME ONE Stop: 05/01/21 06:26 Last Admin: 05/01/21 06:32 Dose: 0.5 mg Documented by: Sodium Chloride (Sodium Chloride 0.9% 10 Ml Syringe) 10 ml FLUSH ONETIME PRN PRN Reason: IV FLUSH Stop: 05/01/21 12:00 Last Admin: 05/01/21 10:06 Dose: 10 ml Documented by: - Exam Quality Assessment: DVT Prophylaxis. No: Supplemental Oxygen, Urine Catheter General: Alert, Oriented, Cooperative, No Acute Distress HEENT: Pupils Equal, Pupils Reactive, Mucous Membr. Moist/[place] Neck: Supple Lungs: Normal Respiratory Effort, Decreased Breath Sounds, Crackles Cardiovascular: Regular Rate, Irregular Rhythm, Murmurs GI/Abdominal Exam: Normal Bowel Sounds, Soft, Non-Tender, No Distention (Male) Exam: Deferred Back Exam: Normal Inspection, Full Range of Motion Extremities: Normal Inspection, Normal Range of Motion, Non-Tender, Normal Capillary Refill, Pedal Edema (trace) Peripheral Pulses: 2+: Radial (L), Radial (R) Skin: Warm, Dry, Intact Neurological: No New Focal Deficit Psy/Mental Status: Alert, Normal Affect, Normal Mood - Patient Data Lab Results Last 24 hrs: Laboratory Results - last 24 hr 05/01/21 05/02/21 05/02/21 Range/Units 00:46 05:02 05:02 WBC 7.85 (4.23-9.07) K/mm3 RBC 3.71 L (4.63-6.08) M/mm3 Hgb 10.0 L (13.7-17.5) gm/dl Hct 33.0 L (40.1-51.0) % MCV 88.9 (79.0-92.2) fl MCH 27.0 (25.7-32.2) pg MCHC 30.3 L (32.2-35.5) g/dl RDW Std Deviation 44.5 H (35.1-43.9) fL Plt Count 162 L (163-337) K/mm3 MPV 10.2 (9.4-12.3) fl Neut % (Auto) 85.9 H (34.0-67.9) % Lymph % (Auto) 7.5 L (21.8-53.1) % [place] % (Auto) 6.4 (5.3-12.2) % Eos % (Auto) 0 L (0.8-7.0) Baso % (Auto) 0.1 (0.1-1.2) % Neut # (Auto) 6.74 H (1.78-5.38) K/mm3 Lymph # (Auto) 0.59 L (1.32-3.57) K/mm3 [place] # (Auto) 0.50 (0.30-0.82) K/mm3 Eos # (Auto) 0.00 L (0.04-0.54) K/mm3 Baso # (Auto) 0.01 (0.01-0.08) K/mm3 Manual Slide Review Abnormal smear Sodium 142 (136-145) mEq/L Potassium 3.8 (3.5-5.1) mEq/L Chloride 110 H (98-107) mEq/L Carbon Dioxide 21 (21-32) mEq/L Anion Gap 14.8 (5-15) BUN 24 H (7-18) mg/dL Creatinine 0.9 (0.7-1.3) mg/dL Est Cr Clr Drug Dosing 61.10 mL/min Estimated GFR (MDRD) > 60 (>60) mL/min BUN/Creatinine Ratio 26.7 H (14-18) Glucose 101 H (70-99) mg/dL Calcium 8.0 L (8.5-10.1) mg/dL Magnesium 1.8 (1.8-2.4) mg/dL Total Bilirubin 1.2 H (0.2-1.0) mg/dL Direct Bilirubin 0.30 H (0.0-0.2) mg/dl Indirect Bilirubin 0.9 (0.1-1.0) mg/dL AST 39 H (15-37) U/L ALT 20 (16-63) U/L Alkaline Phosphatase 81 (46-116) U/L C-Reactive Protein 10.6 H* (<1.0) mg/dL Total Protein 5.9 L (6.4-8.2) g/dl Albumin 2.8 L (3.4-5.0) g/dl Globulin 3.1 gm/dL Albumin/Globulin Ratio 0.9 L (1-2) Procalcitonin 0.42 H ng/mL Result Diagrams: 05/02/21 05:02 05/02/21 05:02 Nasir Results Last 24 hrs: Microbiology 05/01/21 01:55 Aerobic Blood Culture - Preliminary Blood - Venous - Lab Draw Gram Positive Cocci In Chains Anaerobic Blood Culture - Preliminary Gram Positive Cocci In Chains 05/01/21 01:45 Aerobic Blood Culture - Preliminary Blood - Venous Gram Positive Cocci In Chains Anaerobic Blood Culture - Preliminary Gram Positive Cocci In Chains Sepsis Event Note - Evaluation Sepsis Screening Result: No Definite Risk - Focused Exam Vital Signs: Vital Signs Temp Pulse Resp BP Pulse Ox 05/02/21 04:00 16 05/02/21 03:40 97.0 F 80 16 134/63 98 05/02/21 03:00 18 05/02/21 02:00 17 05/02/21 01:00 19 05/02/21 00:00 20 05/01/21 23:00 30 H 05/01/21 22:11 98.8 F 94 16 124/58 L 96 05/01/21 22:00 29 H 05/01/21 21:14 100.4 F 83 23 H 193/91 H 93 L 05/01/21 21:00 100.4 F 23 H 05/01/21 20:52 100.9 F H 95 23 H 92 L 05/01/21 20:47 101.1 F H 102 H 30 H 86 L 05/01/21 20:43 99.9 F 29 H - Problem List & Annotations (1) Heart murmur SNOMED Code(s): 90199564 Code(s): R01.1 - CARDIAC MURMUR, UNSPECIFIED Status: Chronic Priority: Low Current Visit: No (2) HLD (hyperlipidemia) SNOMED Code(s): 36073264 Code(s): E78.5 - HYPERLIPIDEMIA, UNSPECIFIED Status: Chronic Priority: Low Current Visit: No Qualifiers: Hyperlipidemia type: unspecified Qualified Code(s): E78.5 - Hyperlipidemia, unspecified (3) HTN (hypertension) SNOMED Code(s): 23148474 Code(s): I10 - ESSENTIAL (PRIMARY) HYPERTENSION Status: Chronic Priority: Medium Current Visit: No Qualifiers: Hypertension type: unspecified Qualified Code(s): I10 - Essential (primary) hypertension (4) History of IA (myocardial infarction) SNOMED Code(s): 431931205 Code(s): I25.2 - OLD MYOCARDIAL INFARCTION Status: Chronic Priority: Low Current Visit: No (5) History of coronary artery stent placement SNOMED Code(s): 321374756, 247954718 Code(s): Z95.5 - PRESENCE OF CORONARY ANGIOPLASTY IMPLANT AND GRAFT Status: Chronic Priority: Low Current Visit: No (6) 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 SNOMED Code(s): 968321430 Code(s): Z86.79 - PERSONAL HISTORY OF OTHER DISEASES OF THE CIRCULATORY SYSTEM Status: Chronic Priority: Medium Current Visit: No (7) Prostate disorder SNOMED Code(s): 24297569 Code(s): N42.9 - DISORDER OF PROSTATE, UNSPECIFIED Status: Chronic Priority: Low Current Visit: No (8) Arthritis SNOMED Code(s): 4847698 Code(s): M19.90 - UNSPECIFIED OSTEOARTHRITIS, UNSPECIFIED SITE Status: Chronic Priority: Low Current Visit: No (9) History of CVA with residual deficit SNOMED Code(s): 371769596 Code(s): I69.30 - UNSPECIFIED SEQUELAE OF CEREBRAL INFARCTION Status: Chronic Priority: Low Current Visit: No (10) Chronic anticoagulation SNOMED Code(s): 857636429 Code(s): Z79.01 - ELIGIBILITY MANAGER (CURRENT) USE OF ANTICOAGULANTS Status: Chronic Priority: Medium Current Visit: Yes (11) History of skin cancer SNOMED Code(s): 767183990 Code(s): Z85.828 - PERSONAL HISTORY OF OTHER MALIGNANT NEOPLASM OF SKIN Status: Acute Current Visit: Yes (12) Fever and chills SNOMED Code(s): 245469340 Code(s): R50.9 - FEVER, UNSPECIFIED Status: Acute Priority: High Current Visit: Yes (13) Atrial fibrillation SNOMED Code(s): 98698073 Code(s): I48.91 - UNSPECIFIED ATRIAL FIBRILLATION Status: Chronic Priority: Low Current Visit: No Qualifiers: Atrial fibrillation type: unspecified chronic Qualified Code(s): I48.20 - C hronic atrial fibrillation, unspecified; I48.2 - Chronic atrial fibrillation (14) Atypical chest pain SNOMED Code(s): 474931957 Code(s): R07.89 - OTHER CHEST PAIN Status: Acute Priority: Medium Current Visit: Yes (15) Hyperbilirubinemia SNOMED Code(s): 37104568 Code(s): E80.6 - OTHER DISORDERS OF BILIRUBIN METABOLISM Status: Chronic Priority: Low Current Visit: Yes (16) SIRS (systemic inflammatory response syndrome) SNOMED Code(s): 572437919 Code(s): R65.10 - SIRS OF NON-INFECTIOUS ORIGIN W/O ACUTE ORGAN DYSFUNCTION Status: Acute Priority: High Current Visit: Yes (17) Nausea SNOMED Code(s): 812679698 Code(s): R11.0 - NAUSEA Status: Resolved Priority: High Current Visit: Yes (18) High anion gap metabolic acidosis SNOMED Code(s): 54223651 Code(s): E87.2 - ACIDOSIS Status: Ruled-out Priority: High Current Visit: Yes (19) Bacteremia SNOMED Code(s): 2098252 Code(s): R78.81 - BACTEREMIA Status: Acute Priority: High Current Visit: Yes - Problem List Review Problem List Initiated/Reviewed/Updated: Yes - My Orders Last 24 Hours: My Active Orders 05/01/21 07:34 Cardiac Monitoring [RC] CONTINUOUS Height and Weight [RC] 06 Intake and Output [RC] 04,16 Oxygen Therapy [RC] ASDIRECTED Pulse Oximetry [RC] PRN Up With Assistance [RC] BID Vital Signs [RC] 04,10,16,22 Consult to Case Management/Washer Blanket [CONS] Routine Docusate Sodium [Colace] 100 mg PO DAILY PRN Magnesium Hydroxide [Milk of Magnesia] 30 ml PO Q12H PRN 05/01/21 07:36 OT Evaluation and Treatment [CONS] Routine PT Evaluation and Treatment [CONS] Routine 05/01/21 07:37 Nitroglycerin [Nitrostat] 0.4 mg SL Q5M PRN 05/01/21 07:45 Sodium Chloride 0.9% [Normal Saline] 1,000 ml IV ASDIRECTED 05/01/21 08:39 Code Status [Resuscitation Status] Routine 05/01/21 09:00 Apixaban [Eliquis] 5 mg PO BID Aspirin [Halfprin] 81 mg PO DAILY Furosemide [Lasix] 20 mg PO DAILY Metoprolol Succinate [Toprol XL] 50 mg PO DAILY lisinopriL [Prinivil] 40 mg PO DAILY 05/01/21 11:46 Patient Status [ADT] Routine 05/01/21 12:36 Acapella [RT Chest Physiotherapy] [RC] BID RT Incentive Spirometry [RC] Q1HWA 05/03/21 05:11 C-REACTIVE PROTEIN [CHEM] AM CBC WITH AUTO DIFF [HEME] AM COMPREHENSIVE METABOLIC PN,CMP [CHEM] AM MAGNESIUM [CHEM] AM 05/04/21 05:11 C-REACTIVE PROTEIN [CHEM] AM CBC WITH AUTO DIFF [HEME] AM COMPREHENSIVE METABOLIC PN,CMP [CHEM] AM MAGNESIUM [CHEM] AM 05/05/21 05:11 C-REACTIVE PROTEIN [CHEM] AM CBC WITH AUTO DIFF [HEME] AM COMPREHENSIVE METABOLIC PN,CMP [CHEM] AM MAGNESIUM [CHEM] AM - Assessment Assessment:: Assessment - day of admission 05/01/2021 * 85-year-old male who 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 He does have a loop recorder in place. * Reports the chest pressure is in his anterior chest and is worse with deep inspiration and with lying flat * Denies any hematuria or black or tarry stools. * Was seen in our ED earlier in the day for this chest pain. At that time his chest pain had resolved EKG was obtained showing A. fib at 85 bpm. There is no fever. Labs were grossly normal. Troponin was less than 0.017. CRP was 1.9. Chest x-ray was obtained showing nothing acute. He was ultimately discharged home. * Now reporting rigors and a fever of 102 F. * Twelve-lead EKG is again obtained and shows A. fib at 90 bpm with a PVC but no acute changes. * Labs are obtained: * WBC 11.08. * Hemoglobin 11.3. * Platelet 225,000. * Neutrophils are elevated 71%. There is 10% band neutrophils noted. * 1+ toxic granulation is noted. * D-dimer 0.29. * Sodium 141. * Potassium 4.1. * Chloride 102. * Carbon dioxide 21. * Anion gap 22.1. * BUN is 23. Creatinine 1.3. GFR is 53. * Glucose 102. * Calcium is 8.8. * Total bilirubin is 2.7. * AST is 24, ALT 20, alkaline phosphatase 69. * CK-MB is 0.5. * Troponin is 0.021. * Albumin is 3.5. * Lactic acid is 1.1. * UA is obtained and is negative however 1+ protein, 2+ ketones, 1+ bilirubin are noted. Trace intact blood is also noted. * Influenza a and B are both negative. * SARS Covid 2 RNA is negative. * Blood cultures were obtained. * Patient is started on 2 g Rocephin. He is given IV fluid bolus and started on IV fluids. * SIRS not Sepsis as no end organ dysfunction * Admitted to the medical floor for management of his SIRS with fever of unknown origin. 05/02/2021 Is a 49-year male who was admitted to the floor on 05/01/2021 due to chest pressure, fever, chills, shortness of breath, nausea, and fever. He was started on IV fluids and Rocephin. Blood cultures returned positive for gram-positive cocci in chains and he was switched to IV vancomycin yesterday afternoon. We will repeat blood cultures tomorrow at 1600 after 48 hours of IV vancomycin. We also continue to monitor for blood cultures. Patient does report having had some cuts recently on his arms at work, which have since healed and have no signs of abscess etc. Suspect this is the source of patient's bacteria. CT of the chest abdomen and pelvis was obtained on 05/01/2021 showing small bilateral pleural effusions which are stable from the prior chest CT study. There are also linear densities within both lung bases most likely representing atele ctasis. A focal nodular density is noted within the superior segment of the right lower lung measuring 1.6 cm. This is not appreciated on prior exam which could represent small area of pneumonia as well as a small mass. Follow-up is recommended in 3 to 4 months. Other findings are noted which are felt to be stable. Abdomen shows increase stool within the colon and other findings believed to be chronic with nothing acute appreciated. Labs today show a WBC of 7.85. Hemoglobin is 10.0. Platelet is 162,000. Neutrophils are elevated at 85.9%. Sodium is 142. Potassium 3.8. Chloride 110. Carbon dioxide 21. Anion gap is 14.8. BUN is 24. Creatinine 0.9. GFR is greater than 60. Magnesium is 1.8. Total bilirubin is 1.2. Direct bilirubin is 0.30. Indirect bilirubin is 0.9. AST is 39, ALT 20, alkaline phosphatase 81. CRP is 10.6. Protein is 5.9. Albumin 2.8. Procalcitonin returned 0.42 which was obtained yesterday. Echocardiogram obtained on 05/02/2021 shows 1. LVEF, by visual estimation, is 55 to 60%. 2. Basal inferior segment is abnormal as described below. 3. Normal right ventricular systolic function. 4. Severe thickening and calcification of the aortic valve leaflets. 5. Visually the aortic valve appears severely stenotic. Gradients likely underestimated. PV 3.02 m/s, MG 18mmHg, BRITTANY 1.06 cm2. Incomplete interrogation. 6. Moderate aortic valve regurgitation. 7. Moderate mitral annular calcification. 8. Moderate mitral valve regurgitation. 9. Mild tricuspid valve regurgitation. 10. The right ventricular systolic pressure is moderate to severely elevated at 64.0 mmHg. 11. There is severe biatrial dilation. He is on 20 mg daily p.o. Lasix and we will add 20 mg IV push Lasix to this as he appears to be somewhat fluid overloaded today with crackles in his lungs and mild shortness of breath. We will increase him to 20 mg IV push Lasix tomorrow and reevaluate for future Lasix dosing. LOS likely 4-5 days pending repeat blood cultures. - Plan Plan:: Fever and chills SIRS without end organ dysfunction Atypical chest pain Elevated BNP High anion gap metabolic acidosis - resolved Nausea - resolved Bacteremia * Switched to Vancomycin with pharmacy to dose due to blood culture results * Tylenol for fevers * Await blood cultures - gram + cocci in chains thus far * IS/Acapella * Monitor daily labs * Telemetry * Antiemetics PRN * Discontinue IV fluids today * Additional 20mg IVP lasix today due to suspected fluid overload * Repeat blood cultures tomorrow at 1600 (after 48hrs vancomycin) Heart murmur HLD (hyperlipidemia) HTN (hypertension) History of IA (myocardial infarction) History of coronary artery stent placement 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 Godwin VTE prophylaxis: Continue home eliquis Disposition: Admitted to [facility] with telemetry for further work-up as to cause of fever and chest pain. Likely discharge in 2 to 4 days. <Moy Meek Jr - Last Filed: 05/02/21 16:37> - Patient Data Vitals - Most Recent: Last Vital Signs Temp 97.7 F 05/02/21 15:39 Pulse 87 05/02/21 15:39 Resp 23 H 05/02/21 15:39 BP 158/62 H 05/02/21 15:39 Pulse Ox 95 05/02/21 15:39 I&O - Last 24 Hours: Intake & Output 05/02/21 05/02/21 05/02/21 06:59 14:59 22:59 Intake Total 2710 250 0 Output Total 300 250 Balance 2410 0 0 Lab Results Last 24 Hours: Laboratory Results - last 24 hr 05/01/21 05/02/21 05/02/21 Range/Units 00:46 05:02 05:02 WBC 7.85 (4.23-9.07) K/mm3 RBC 3.71 L (4.63-6.08) M/mm3 Hgb 10.0 L (13.7-17.5) gm/dl Hct 33.0 L (40.1-51.0) % MCV 88.9 (79.0-92.2) fl MCH 27.0 (25.7-32.2) pg MCHC 30.3 L (32.2-35.5) g/dl RDW Std Deviation 44.5 H (35.1-43.9) fL Plt Count 162 L (163-337) K/mm3 MPV 10.2 (9.4-12.3) fl Neut % (Auto) 85.9 H (34.0-67.9) % Lymph % (Auto) 7.5 L (21.8-53.1) % [place] % (Auto) 6.4 (5.3-12.2) % Eos % (Auto) 0 L (0.8-7.0) Baso % (Auto) 0.1 (0.1-1.2) % Neut # (Auto) 6.74 H (1.78-5.38) K/mm3 Lymph # (Auto) 0.59 L (1.32-3.57) K/mm3 [place] # (Auto) 0.50 (0.30-0.82) K/mm3 Eos # (Auto) 0.00 L (0.04-0.54) K/mm3 Baso # (Auto) 0.01 (0.01-0.08) K/mm3 Manual Slide Review Abnormal smear Sodium 142 (136-145) mEq/L Potassium 3.8 (3.5-5.1) mEq/L Chloride 110 H (98-107) mEq/L Carbon Dioxide 21 (21-32) mEq/L Anion Gap 14.8 (5-15) BUN 24 H (7-18) mg/dL Creatinine 0.9 (0.7-1.3) mg/dL Est Cr Clr Drug Dosing 61.10 mL/min Estimated GFR (MDRD) > 60 (>60) mL/min BUN/Creatinine Ratio 26.7 H (14-18) Glucose 101 H (70-99) mg/dL Calcium 8.0 L (8.5-10.1) mg/dL Magnesium 1.8 (1.8-2.4) mg/dL Total Bilirubin 1.2 H (0.2-1.0) mg/dL Direct Bilirubin 0.30 H (0.0-0.2) mg/dl Indirect Bilirubin 0.9 (0.1-1.0) mg/dL AST 39 H (15-37) U/L ALT 20 (16-63) U/L Alkaline Phosphatase 81 (46-116) U/L C-Reactive Protein 10.6 H* (<1.0) mg/dL Total Protein 5.9 L (6.4-8.2) g/dl Albumin 2.8 L (3.4-5.0) g/dl Globulin 3.1 gm/dL Albumin/Globulin Ratio 0.9 L (1-2) Procalcitonin 0.42 H ng/mL Nasir Results Last 24 Hours: Microbiology 05/01/21 01:55 Aerobic Blood Culture - Preliminary Blood - Venous - Lab Draw Gram Positive Cocci In Chains Anaerobic Blood Culture - Preliminary Gram Positive Cocci In Chains 05/01/21 01:45 Aerobic Blood Culture - Preliminary Blood - Venous Gram Positive Cocci In Chains Anaerobic Blood Culture - Preliminary Gram Positive Cocci In Chains Med Orders - Current: Current Medications Acetaminophen (Acetaminophen 325 Mg Tab) 650 mg PO Q4H PRN PRN Reason: Pain Last Admin: 05/01/21 21:00 Dose: 650 mg Documented by: Al Hydroxide/Mg Hydroxide (Aluminum Hydroxide/Magnesium Hydroxide/Simethicone Susp 30 Ml Cup) 30 ml PO Q4H PRN PRN Reason: Heartburn Last Admin: 05/02/21 12:47 Dose: 30 ml Documented by: Apixaban (Apixaban 5 Mg Tab) 5 mg PO BID [facility] Last Admin: 05/02/21 08:36 Dose: 5 mg Documented by: Aspirin (Aspirin 81 Mg Tab.Ec) 81 mg PO DAILY [facility] Last Admin: 05/02/21 08:36 Dose: 81 mg Documented by: Docusate Sodium (Docusate Sodium 100 Mg Cap) 100 mg PO DAILY PRN PRN Reason: Constipation Furosemide (Furosemide 20 Mg/2 Ml Vial) 20 mg IVPUSH DAILY [facility] Vancomycin HCl 1 gm/Vancomycin HCl 250 mg/ Sodium Chloride 250 mls @ 166 mls/hr IV Q18H [facility] Last Admin: 05/02/21 10:02 Dose: 166 mls/hr Documented by: Lisinopril (Lisinopril 20 Mg Tab) 40 mg PO DAILY [facility] Last Admin: 05/02/21 08:37 Dose: 40 mg Documented by: Magnesium Hydroxide (Magnesium Hydroxide 400 Mg/5 Ml Susp 30 Ml Cup) 30 ml PO Q12H PRN PRN Reason: Constipation Metoprolol Succinate (Metoprolol Succinate 50 Mg Tab.Er) 50 mg PO DAILY [facility] Last Admin: 05/02/21 08:36 Dose: 50 mg Documented by: Nitroglycerin (Nitroglycerin 0.4 Mg Tab.Sl) 0.4 mg SL Q5M PRN PRN Reason: Chest Pain Ondansetron HCl (Ondansetron 4 Mg/2 Ml Sdv) 4 mg IVPUSH Q4H PRN PRN Reason: Nausea Last Admin: 05/01/21 08:25 Dose: 4 mg Documented by: Vancomycin HCl (Pharmacy To Dose - Vancomycin) 0 dose .XX ASDIRECTED PRN PRN Reason: RX TO DOSE VANCOMYCIN Discontinued Medications Ceftriaxone Sodium (Ceftriaxone 2 Gm Advvial) Confirm Administered Dose 2 gm IV .STK-MED ONE Stop: 05/01/21 03:01 Last Admin: 05/01/21 03:04 Dose: Not Given Documented by: Diatrizoate Meglum/Diatrizoate Sod (Diatrizoate Meglumine/Diatrizoate Sodium 37% 120 Ml Bottle) 120 ml PO ONETIME ONE Stop: 05/01/21 09:00 Last Admin: 05/01/21 10:06 Dose: 30 ml Documented by: Furosemide (Furosemide 20 Mg Tab) 20 mg PO DAILY [place] Last Admin: 05/02/21 08:36 Dose: 20 mg Documented by: Furosemide (Furosemide 40 Mg/4 Ml Vial) 40 mg IVPUSH NOW ONE Stop: 05/02/21 09:53 Furosemide (Furosemide 20 Mg/2 Ml Vial) 20 mg IVPUSH ONETIME ONE Stop: 05/02/21 09:54 Last Admin: 05/02/21 10:02 Dose: 20 mg Documented by: Sodium Chloride (Normal Saline) 1,000 mls @ 250 mls/hr IV ONETIME ONE Stop: 05/01/21 05:10 Last Admin: 05/01/21 01:21 Dose: 250 mls/hr Documented by: Ceftriaxone Sodium 2 gm/ (Sodium Chloride) 100 mls @ 200 mls/hr IV ONETIME ONE Stop: 05/01/21 03:24 Last Admin: 05/01/21 03:03 Dose: 200 mls/hr Documented by: Sodium Chloride (Normal Saline) Confirm Administered Dose 100 mls @ as directed .ROUTE .STK-MED ONE Stop: 05/01/21 03:01 Last Admin: 05/01/21 03:03 Dose: Not Given Documented by: Ceftriaxone Sodium 2 gm/ (Sodium Chloride) 100 mls @ 200 mls/hr IV Q24H [facility] Sodium Chloride (Normal Saline) 1,000 mls @ 150 mls/hr IV ASDIRECTED [place] Last Admin: 05/02/21 03:46 Dose: 150 mls/hr Documented by: Azithromycin 500 mg/ Sodium (Chloride) 250 mls @ 250 mls/hr IV Q24H [facility] Last Admin: 05/01/21 15:22 Dose: 250 mls/hr Documented by: Vancomycin HCl 1 gm/Vancomycin HCl 500 mg/ Sodium Chloride 500 mls @ 250 mls/hr IV ONETIME ONE Stop: 05/01/21 18:59 Last Admin: 05/01/21 16:37 Dose: 250 mls/hr Documented by: Iopamidol (Iopamidol 612 Mg/Ml 100 Ml Bottle) 100 ml IVPUSH ONETIME ONE Stop: 05/01/21 09:00 Last Admin: 05/01/21 10:06 Dose: 100 ml Documented by: Lorazepam (Lorazepam 0.5 Mg Tab) 0.5 mg PO ONETIME ONE Stop: 05/01/21 06:26 Last Admin: 05/01/21 06:32 Dose: 0.5 mg Documented by: Sodium Chloride (Sodium Chloride 0.9% 10 Ml Syringe) 10 ml FLUSH ONETIME PRN PRN Reason: IV FLUSH Stop: 05/01/21 12:00 Last Admin: 05/01/21 10:06 Dose: 10 ml Documented by: Vancomycin HCl (Vancomycin 500 Mg Sdv) Confirm Administered Dose 500 mg .ROUTE .STK-MED ONE Stop: 05/02/21 09:57 Last Admin: 05/02/21 10:12 Dose: Not Given Documented by: Vancomycin HCl (Vancomycin 1 Gm Sdv) Confirm Administered Dose 1 gm .ROUTE .STK- MED ONE Stop: 05/02/21 09:57 Last Admin: 05/02/21 10:12 Dose: Not Given Documented by: - Patient Data Lab Results Last 24 hrs: Laboratory Results - last 24 hr 05/01/21 05/02/21 05/02/21 Range/Units 00:46 05:02 05:02 WBC 7.85 (4.23-9.07) K/mm3 RBC 3.71 L (4.63-6.08) M/mm3 Hgb 10.0 L (13.7-17.5) gm/dl Hct 33.0 L (40.1-51.0) % MCV 88.9 (79.0-92.2) fl MCH 27.0 (25.7-32.2) pg MCHC 30.3 L (32.2-35.5) g/dl RDW Std Deviation 44.5 H (35.1-43.9) fL Plt Count 162 L (163-337) K/mm3 MPV 10.2 (9.4-12.3) fl Neut % (Auto) 85.9 H (34.0-67.9) % Lymph % (Auto) 7.5 L (21.8-53.1) % [place] % (Auto) 6.4 (5.3-12.2) % Eos % (Auto) 0 L (0.8-7.0) Baso % (Auto) 0.1 (0.1-1.2) % Neut # (Auto) 6.74 H (1.78-5.38) K/mm3 Lymph # (Auto) 0.59 L (1.32-3.57) K/mm3 [place] # (Auto) 0.50 (0.30-0.82) K/mm3 Eos # (Auto) 0.00 L (0.04-0.54) K/mm3 Baso # (Auto) 0.01 (0.01-0.08) K/mm3 Manual Slide Review Abnormal smear Sodium 142 (136-145) mEq/L Potassium 3.8 (3.5-5.1) mEq/L Chloride 110 H (98-107) mEq/L Carbon Dioxide 21 (21-32) mEq/L Anion Gap 14.8 (5-15) BUN 24 H (7-18) mg/dL Creatinine 0.9 (0.7-1.3) mg/dL Est Cr Clr Drug Dosing 61.10 mL/min Estimated GFR (MDRD) > 60 (>60) mL/min BUN/Creatinine Ratio 26.7 H (14-18) Glucose 101 H (70-99) mg/dL Calcium 8.0 L (8.5-10.1) mg/dL Magnesium 1.8 (1.8-2.4) mg/dL Total Bilirubin 1.2 H (0.2-1.0) mg/dL Direct Bilirubin 0.30 H (0.0-0.2) mg/dl Indirect Bilirubin 0.9 (0.1-1.0) mg/dL AST 39 H (15-37) U/L ALT 20 (16-63) U/L Alkaline Phosphatase 81 (46-116) U/L C-Reactive Protein 10.6 H* (<1.0) mg/dL Total Protein 5.9 L (6.4-8.2) g/dl Albumin 2.8 L (3.4-5.0) g/dl Globulin 3.1 gm/dL Albumin/Globulin Ratio 0.9 L (1-2) Procalcitonin 0.42 H ng/mL Result Diagrams: 05/02/21 05:02 05/02/21 05:02 [place] Results Last 24 hrs: Microbiology 05/01/21 01:55 Aerobic Blood Culture - Preliminary Blood - Venous - Lab Draw Gram Positive [place] Anaerobic Blood Culture - Preliminary Gram Positive [place] 05/01/21 01:45 Aerobic Blood Culture - Preliminary Blood - Venous Gram Positive [facility] Anaerobic Blood Culture - Preliminary Gram Positive [place] Sepsis Event Note - Focused Exam Vital Signs: Vital Signs Temp Pulse Resp BP Pulse Ox 05/02/21 15:39 97.7 F 87 23 H 158/62 H 95 05/02/21 10:00 18 05/02/21 09:00 17 05/02/21 08:37 130/107 H 05/02/21 08:36 66 130/107 H 05/02/21 08:33 97.5 F 66 18 130/107 H 98 05/02/21 08:00 21 H 05/02/21 07:00 18 05/02/21 06:00 25 H 05/02/21 05:00 21 H - My Orders Last 24 Hours: My Active Orders 05/01/21 16:00 Pharmacy to Dose - Vancomycin 0 dose .XX ASDIRECTED PRN 05/02/21 11:00 Vancomycin 1 gm Vancomycin 250 mg Sodium Chloride 0.9% [Normal Saline] 250 ml IV Q18H 05/02/21 12:38 Alum Hydrox/Mag Hydrox/Simeth [Mag-Al Plus] 30 ml PO Q4H PRN 05/03/21 04:00 VANCOMYCIN TROUGH [CHEM] Timed - Plan Plan:: Case discussed in full. Agree with evaluation, assessment and plan.
[2021-05-02] MEDS: Apixaban 5 MG Tab PO SCH ×2 (08:36→20:55)
[2021-05-02] MEDS: Aspirin 81 MG Tab.EC PO SCH (08:36)
[2021-05-02] MEDS: Metoprolol Succinate 50 MG Tab.ER PO SCH (08:36)
[2021-05-02] MEDS: Furosemide 20 MG Tab PO SCH (08:36)
[2021-05-02] MEDS: Lisinopril 20 MG Tab PO SCH (08:37)
[2021-05-02] MEDS ORDERED: Furosemide 40 MG/4 ML VIAL IVPUSH ONE (09:52)
[2021-05-02] MEDS ORDERED: Furosemide 20 MG/2 ML VIAL IVPUSH ONE (09:53)
[2021-05-02] MEDS ORDERED: Vancomycin 500 MG SDV ONE (09:56)
[2021-05-02] MEDS ORDERED: Vancomycin 1 GM SDV ONE (09:56)
[2021-05-02] MEDS: Vancomycin 1 GM, Vancomycin 250 MG in Sodium Chloride 0.9% 250 ML IV SCH (10:02)
[2021-05-02] MEDS ORDERED: Aluminum Hydroxide/Magnesium Hydroxide/Simethicone Susp 30 ML Cup PO PRN (12:38)
[2021-05-03] MEDS: Vancomycin 1 GM, Vancomycin 250 MG in Sodium Chloride 0.9% 250 ML IV SCH ×2 (04:45→23:40)
[2021-05-03] MEDS ORDERED: Potassium Chloride 20 MEQ Tab.ER PO ONE (07:28)
--- NOTE | 2021-05-03 07:29 | PCM.PN ---
<Clifford Andersen - Last Filed: 05/03/21 11:02> - General Info Date of Service: 05/03/21 Admission Dx/Problem (Free Text): Admission Diagnosis/Problem Admission Diagnosis/Problem Sepsis Functional Status: Reports: Pain Controlled, Tolerating Diet, Ambulating, Urinating, Incentive Spirometry, Other (acapella ). Denies: New Symptoms - Review of Systems General: Reports: Weakness, Fatigue, Malaise. Denies: Fever, Chills HEENT: Reports: No Symptoms. Denies: Headaches, Sore Throat Pulmonary: Reports: No Symptoms, Shortness of Breath, Pleuritic Chest Pain, Cough. Denies: Sputum, Wheezing Cardiovascular: Reports: No Symptoms, Dyspnea on Exertion. Denies: Chest Pain, Palpitations, Edema Gastrointestinal: Reports: Abdominal Pain (Epigastric ). Denies: Constipation, Diarrhea, Nausea, Vomiting Genitourinary: Reports: Frequency (2/2 lasix ). Denies: Pain Musculoskeletal: Reports: No Symptoms Skin: Reports: No Symptoms. Denies: Cyanosis Neurological: Reports: No Symptoms. Denies: Confusion, Dizziness, Headache, Numbness, Pre-Existing Deficit, Seizure, Syncope, Tingling, Difficulty Walking, Gait Disturbance Psychiatric: Reports: No Symptoms - Patient Data Vitals - Most Recent: Last Vital Signs Temp 97.3 F 05/03/21 02:50 Pulse 75 05/03/21 02:50 Resp 22 H 05/03/21 03:00 BP 142/64 H 05/03/21 02:50 Pulse Ox 93 L 05/03/21 02:50 Weight - Most Recent: 186 lb 6.4 oz I&O - Last 24 Hours: Intake & Output 05/02/21 05/03/21 05/03/21 22:59 06:59 14:59 Intake Total 900 300 Output Total 905 650 Balance -5 -350 Lab Results Last 24 Hours: Laboratory Results - last 24 hr 05/02/21 05/03/21 05/03/21 Range/Units 05:02 03:35 03:35 WBC 6.30 (4.23-9.07) K/mm3 RBC 3.73 L (4.63-6.08) M/mm3 Hgb 10.0 L (13.7-17.5) gm/dl Hct 32.6 L (40.1-51.0) % MCV 87.4 (79.0-92.2) fl MCH 26.8 (25.7-32.2) pg MCHC 30.7 L (32.2-35.5) g/dl RDW Std Deviation 43.4 (35.1-43.9) fL Plt Count 190 (163-337) K/mm3 MPV 10.2 (9.4-12.3) fl Neut % (Auto) 70.9 H (34.0-67.9) % Lymph % (Auto) 14.6 L (21.8-53.1) % [place] % (Auto) 11.9 (5.3-12.2) % Eos % (Auto) 2.2 (0.8-7.0) Baso % (Auto) 0.2 (0.1-1.2) % Neut # (Auto) 4.47 (1.78-5.38) K/mm3 Lymph # (Auto) 0.92 L (1.32-3.57) K/mm3 [place] # (Auto) 0.75 (0.30-0.82) K/mm3 Eos # (Auto) 0.14 (0.04-0.54) K/mm3 Baso # (Auto) 0.01 (0.01-0.08) K/mm3 Manual Slide Review Abnormal smear Sodium 142 (136-145) mEq/L Potassium 3.3 L (3.5-5.1) mEq/L Chloride 107 (98-107) mEq/L Carbon Dioxide 23 (21-32) mEq/L Anion Gap 15.3 H (5-15) BUN 25 H (7-18) mg/dL Creatinine 1.0 (0.7-1.3) mg/dL Est Cr Clr Drug Dosing 54.99 mL/min Estimated GFR (MDRD) > 60 (>60) mL/min BUN/Creatinine Ratio 25.0 H (14-18) Glucose 86 (70-99) mg/dL Calcium 8.2 L (8.5-10.1) mg/dL Magnesium 1.8 (1.8-2.4) mg/dL Total Bilirubin 1.1 H (0.2-1.0) mg/dL AST 27 (15-37) U/L ALT 22 (16-63) U/L Alkaline Phosphatase 75 (46-116) U/L C-Reactive Protein 8.2 H* (<1.0) mg/dL Total Protein 5.7 L (6.4-8.2) g/dl Albumin 2.8 L (3.4-5.0) g/dl Globulin 2.9 gm/dL Albumin/Globulin Ratio 1.0 (1-2) Vancomycin Trough (10.0-20.0) 05/03/21 Range/Units 03:35 WBC (4.23-9.07) K/mm3 RBC (4.63-6.08) M/mm3 Hgb (13.7-17.5) gm/dl Hct (40.1-51.0) % MCV (79.0-92.2) fl MCH (25.7-32.2) pg MCHC (32.2-35.5) g/dl RDW Std Deviation (35.1-43.9) fL Plt Count (163-337) K/mm3 MPV (9.4-12.3) fl Neut % (Auto) (34.0-67.9) % Lymph % (Auto) (21.8-53.1) % [place] % (Auto) (5.3-12.2) % Eos % (Auto) (0.8-7.0) Baso % (Auto) (0.1-1.2) % Neut # (Auto) (1.78-5.38) K/mm3 Lymph # (Auto) (1.32-3.57) K/mm3 [place] # (Auto) (0.30-0.82) K/mm3 Eos # (Auto) (0.04-0.54) K/mm3 Baso # (Auto) (0.01-0.08) K/mm3 Manual Slide Review Sodium (136-145) mEq/L Potassium (3.5-5.1) mEq/L Chloride (98-107) mEq/L Carbon Dioxide (21-32) mEq/L Anion Gap (5-15) BUN (7-18) mg/dL Creatinine (0.7-1.3) mg/dL Est Cr Clr Drug Dosing mL/min Estimated GFR (MDRD) (>60) mL/min BUN/Creatinine Ratio (14-18) Glucose (70-99) mg/dL Calcium (8.5-10.1) mg/dL Magnesium (1.8-2.4) mg/dL Total Bilirubin (0.2-1.0) mg/dL AST (15-37) U/L ALT (16-63) U/L Alkaline Phosphatase (46-116) U/L C-Reactive Protein (<1.0) mg/dL Total Protein (6.4-8.2) g/dl Albumin (3.4-5.0) g/dl Globulin gm/dL Albumin/Globulin Ratio (1-2) Vancomycin Trough 14.1 (10.0-20.0) Nasir Results Last 24 Hours: Microbiology 05/01/21 01:45 Aerobic Blood Culture - Preliminary Blood - Venous Gram Positive Cocci In Chains Anaerobic Blood Culture - Preliminary Gram Positive Cocci In Chains 05/01/21 01:55 Aerobic Blood Culture - Preliminary Blood - Venous - Lab Draw Gram Positive Cocci In Chains Anaerobic Blood Culture - Preliminary Gram Positive Cocci In Chains Med Orders - Current: Current Medications Acetaminophen (Acetaminophen 325 Mg Tab) 650 mg PO Q4H PRN PRN Reason: Pain Last Admin: 05/01/21 21:00 Dose: 650 mg Documented by: Al Hydroxide/Mg Hydroxide (Aluminum Hydroxide/Magnesium Hydroxide/Simethicone Susp 30 Ml Cup) 30 ml PO Q4H PRN PRN Reason: Heartburn Last Admin: 05/02/21 12:47 Dose: 30 ml Documented by: Apixaban (Apixaban 5 Mg Tab) 5 mg PO BID [facility] Last Admin: 05/02/21 20:55 Dose: 5 mg Documented by: Aspirin (Aspirin 81 Mg Tab.Ec) 81 mg PO DAILY [facility] Last Admin: 05/02/21 08:36 Dose: 81 mg Documented by: Docusate Sodium (Docusate Sodium 100 Mg Cap) 100 mg PO DAILY PRN PRN Reason: Constipation Furosemide (Furosemide 20 Mg/2 Ml Vial) 20 mg IVPUSH DAILY [facility] Vancomycin HCl 1 gm/Vancomycin HCl 250 mg/ Sodium Chloride 250 mls @ 166 mls/hr IV Q18H [facility] Last Admin: 05/03/21 04:45 Dose: 166 mls/hr Documented by: Lisinopril (Lisinopril 20 Mg Tab) 40 mg PO DAILY [facility] Last Admin: 05/02/21 08:37 Dose: 40 mg Documented by: Magnesium Hydroxide (Magnesium Hydroxide 400 Mg/5 Ml Susp 30 Ml Cup) 30 ml PO Q12H PRN PRN Reason: Constipation Metoprolol Succinate (Metoprolol Succinate 50 Mg Tab.Er) 50 mg PO DAILY [facility] Last Admin: 05/02/21 08:36 Dose: 50 mg Documented by: Nitroglycerin (Nitroglycerin 0.4 Mg Tab.Sl) 0.4 mg SL Q5M PRN PRN Reason: Chest Pain Ondansetron HCl (Ondansetron 4 Mg/2 Ml Sdv) 4 mg IVPUSH Q4H PRN PRN Reason: Nausea Last Admin: 05/01/21 08:25 Dose: 4 mg Documented by: Vancomycin HCl (Pharmacy To Dose - Vancomycin) 0 dose .XX ASDIRECTED PRN PRN Reason: RX TO DOSE VANCOMYCIN Discontinued Medications Ceftriaxone Sodium (Ceftriaxone 2 Gm Advvial) Confirm Administered Dose 2 gm IV .STK-MED ONE Stop: 05/01/21 03:01 Last Admin: 05/01/21 03:04 Dose: Not Given Documented by: Diatrizoate Meglum/Diatrizoate Sod (Diatrizoate Meglumine/Diatrizoate Sodium 37% 120 Ml Bottle) 120 ml PO ONETIME ONE Stop: 05/01/21 09:00 Last Admin: 05/01/21 10:06 Dose: 30 ml Documented by: Furosemide (Furosemide 20 Mg Tab) 20 mg PO DAILY [facility] Last Admin: 05/02/21 08:36 Dose: 20 mg Documented by: Furosemide (Furosemide 40 Mg/4 Ml Vial) 40 mg IVPUSH NOW ONE Stop: 05/02/21 09:53 Furosemide (Furosemide 20 Mg/2 Ml Vial) 20 mg IVPUSH ONETIME ONE Stop: 05/02/21 09:54 Last Admin: 05/02/21 10:02 Dose: 20 mg Documented by: Sodium Chloride (Normal Saline) 1,000 mls @ 250 mls/hr IV ONETIME ONE Stop: 05/01/21 05:10 Last Admin: 05/01/21 01:21 Dose: 250 mls/hr Documented by: Ceftriaxone Sodium 2 gm/ (Sodium Chloride) 100 mls @ 200 mls/hr IV ONETIME ONE Stop: 05/01/21 03:24 Last Admin: 05/01/21 03:03 Dose: 200 mls/hr Documented by: Sodium Chloride (Normal Saline) Confirm Administered Dose 100 mls @ as directed .ROUTE .STK-MED ONE Stop: 05/01/21 03:01 Last Admin: 05/01/21 03:03 Dose: Not Given Documented by: Ceftriaxone Sodium 2 gm/ (Sodium Chloride) 100 mls @ 200 mls/hr IV Q24H [place] Sodium Chloride (Normal Saline) 1,000 mls @ 150 mls/hr IV ASDIRECTED [place] Last Admin: 05/02/21 03:46 Dose: 150 mls/hr Documented by: Azithromycin 500 mg/ Sodium (Chloride) 250 mls @ 250 mls/hr IV Q24H [place] Last Admin: 05/01/21 15:22 Dose: 250 mls/hr Documented by: Vancomycin HCl 1 gm/Vancomycin HCl 500 mg/ Sodium Chloride 500 mls @ 250 mls/hr IV ONETIME ONE Stop: 05/01/21 18:59 Last Admin: 05/01/21 16:37 Dose: 250 mls/hr Documented by: Iopamidol (Iopamidol 612 Mg/Ml 100 Ml Bottle) 100 ml IVPUSH ONETIME ONE Stop: 05/01/21 09:00 Last Admin: 05/01/21 10:06 Dose: 100 ml Documented by: Lorazepam (Lorazepam 0.5 Mg Tab) 0.5 mg PO ONETIME ONE Stop: 05/01/21 06:26 Last Admin: 05/01/21 06:32 Dose: 0.5 mg Documented by: Sodium Chloride (Sodium Chloride 0.9% 10 Ml Syringe) 10 ml FLUSH ONETIME PRN PRN Reason: IV FLUSH Stop: 05/01/21 12:00 Last Admin: 05/01/21 10:06 Dose: 10 ml Documented by: Vancomycin HCl (Vancomycin 500 Mg Sdv) Confirm Administered Dose 500 mg .ROUTE .STK-MED ONE Stop: 05/02/21 09:57 Last Admin: 05/02/21 10:12 Dose: Not Given Documented by: Vancomycin HCl (Vancomycin 1 Gm Sdv) Confirm Administered Dose 1 gm .ROUTE .STK- MED ONE Stop: 05/02/21 09:57 Last Admin: 05/02/21 10:12 Dose: Not Given Documented by: - Exam Quality Assessment: DVT Prophylaxis. No: Supplemental Oxygen, Urine Catheter General: Alert, Oriented, Cooperative, No Acute Distress HEENT: Pupils Equal, Pupils Reactive, Mucous Membr. Moist/[place] Neck: Supple, Trachea Midline Lungs: Normal Respiratory Effort, Decreased Breath Sounds, Crackles Cardiovascular: Regular Rate, Irregular Rhythm, Murmurs GI/Abdominal Exam: Normal Bowel Sounds, Soft, Non-Tender, No Distention (Male) Exam: Deferred Back Exam: Normal Inspection, Full Range of Motion Extremities: Normal Inspection, Normal Range of Motion, Non-Tender, No Pedal Edema, Normal Capillary Refill Peripheral Pulses: 2+: Radial (L), Radial (R), Dorsalis Pedis (L), Dorsalis Pedis (R) Skin: Warm, Dry, Intact Neurological: No New Focal Deficit Psy/Mental Status: Alert, Normal Affect, Normal Mood - Patient Data Lab Results Last 24 hrs: Laboratory Results - last 24 hr 05/02/21 05/03/21 05/03/21 Range/Units 05:02 03:35 03:35 WBC 6.30 (4.23-9.07) K/mm3 RBC 3.73 L (4.63-6.08) M/mm3 Hgb 10.0 L (13.7-17.5) gm/dl Hct 32.6 L (40.1-51.0) % MCV 87.4 (79.0-92.2) fl MCH 26.8 (25.7-32.2) pg MCHC 30.7 L (32.2-35.5) g/dl RDW Std Deviation 43.4 (35.1-43.9) fL Plt Count 190 (163-337) K/mm3 MPV 10.2 (9.4-12.3) fl Neut % (Auto) 70.9 H (34.0-67.9) % Lymph % (Auto) 14.6 L (21.8-53.1) % [place] % (Auto) 11.9 (5.3-12.2) % Eos % (Auto) 2.2 (0.8-7.0) Baso % (Auto) 0.2 (0.1-1.2) % Neut # (Auto) 4.47 (1.78-5.38) K/mm3 Lymph # (Auto) 0.92 L (1.32-3.57) K/mm3 [place] # (Auto) 0.75 (0.30-0.82) K/mm3 Eos # (Auto) 0.14 (0.04-0.54) K/mm3 Baso # (Auto) 0.01 (0.01-0.08) K/mm3 Manual Slide Review Abnormal smear Sodium 142 (136-145) mEq/L Potassium 3.3 L (3.5-5.1) mEq/L Chloride 107 (98-107) mEq/L Carbon Dioxide 23 (21-32) mEq/L Anion Gap 15.3 H (5-15) BUN 25 H (7-18) mg/dL Creatinine 1.0 (0.7-1.3) mg/dL Est Cr Clr Drug Dosing 54.99 mL/min Estimated GFR (MDRD) > 60 (>60) mL/min BUN/Creatinine Ratio 25.0 H (14-18) Glucose 86 (70-99) mg/dL Calcium 8.2 L (8.5-10.1) mg/dL Magnesium 1.8 (1.8-2.4) mg/dL Total Bilirubin 1.1 H (0.2-1.0) mg/dL AST 27 (15-37) U/L ALT 22 (16-63) U/L Alkaline Phosphatase 75 (46-116) U/L C-Reactive Protein 8.2 H* (<1.0) mg/dL Total Protein 5.7 L (6.4-8.2) g/dl Albumin 2.8 L (3.4-5.0) g/dl Globulin 2.9 gm/dL Albumin/Globulin Ratio 1.0 (1-2) Vancomycin Trough (10.0-20.0) 05/03/21 Range/Units 03:35 WBC (4.23-9.07) K/mm3 RBC (4.63-6.08) M/mm3 Hgb (13.7-17.5) gm/dl Hct (40.1-51.0) % MCV (79.0-92.2) fl MCH (25.7-32.2) pg MCHC (32.2-35.5) g/dl RDW Std Deviation (35.1-43.9) fL Plt Count (163-337) K/mm3 MPV (9.4-12.3) fl Neut % (Auto) (34.0-67.9) % Lymph % (Auto) (21.8-53.1) % [place] % (Auto) (5.3-12.2) % Eos % (Auto) (0.8-7.0) Baso % (Auto) (0.1-1.2) % Neut # (Auto) (1.78-5.38) K/mm3 Lymph # (Auto) (1.32-3.57) K/mm3 [place] # (Auto) (0.30-0.82) K/mm3 Eos # (Auto) (0.04-0.54) K/mm3 Baso # (Auto) (0.01-0.08) K/mm3 Manual Slide Review Sodium (136-145) mEq/L Potassium (3.5-5.1) mEq/L Chloride (98-107) mEq/L Carbon Dioxide (21-32) mEq/L Anion Gap (5-15) BUN (7-18) mg/dL Creatinine (0.7-1.3) mg/dL Est Cr Clr Drug Dosing mL/min Estimated GFR (MDRD) (>60) mL/min BUN/Creatinine Ratio (14-18) Glucose (70-99) mg/dL Calcium (8.5-10.1) mg/dL Magnesium (1.8-2.4) mg/dL Total Bilirubin (0.2-1.0) mg/dL AST (15-37) U/L ALT (16-63) U/L Alkaline Phosphatase (46-116) U/L C-Reactive Protein (<1.0) mg/dL Total Protein (6.4-8.2) g/dl Albumin (3.4-5.0) g/dl Globulin gm/dL Albumin/Globulin Ratio (1-2) Vancomycin Trough 14.1 (10.0-20.0) Result Diagrams: 05/03/21 03:35 05/03/21 03:35 Nasir Results Last 24 hrs: Microbiology 05/01/21 01:45 Aerobic Blood Culture - Preliminary Blood - Venous Gram Positive Cocci In [facility] Anaerobic Blood Culture - Preliminary Gram Positive Cocci In Chains 05/01/21 01:55 Aerobic Blood Culture - Preliminary Blood - Venous - Lab Draw Gram Positive Cocci In [facility] Anaerobic Blood Culture - Preliminary Gram Positive Cocci In [facility] Sepsis Event Note - Evaluation Sepsis Screening Result: No Definite Risk - Focused Exam Vital Signs: Vital Signs Temp Pulse Resp BP Pulse Ox 05/03/21 03:00 22 H 05/03/21 02:50 97.3 F 75 18 142/64 H 93 L 05/02/21 21:00 23 H 05/02/21 20:53 98.1 F 81 14 130/56 L 96 05/02/21 20:00 24 H - Problem List & Annotations (1) Heart murmur SNOMED Code(s): 87307975 Code(s): R01.1 - CARDIAC MURMUR, UNSPECIFIED Status: Chronic Priority: Low Current Visit: No (2) HLD (hyperlipidemia) SNOMED Code(s): 52071699 Code(s): E78.5 - HYPERLIPIDEMIA, UNSPECIFIED Status: Chronic Priority: Low Current Visit: No Qualifiers: Hyperlipidemia type: unspecified Qualified Code(s): E78.5 - Hyperlipidemia, unspecified (3) HTN (hypertension) SNOMED Code(s): 17068076 Code(s): I10 - ESSENTIAL (PRIMARY) HYPERTENSION Status: Chronic Priority: Medium Current Visit: No Qualifiers: Hypertension type: unspecified Qualified Code(s): I10 - Essential (primary) hypertension (4) History of CT (myocardial infarction) SNOMED Code(s): 800745089 Code(s): I25.2 - OLD MYOCARDIAL INFARCTION Status: Chronic Priority: Low Current Visit: No (5) History of coronary artery stent placement SNOMED Code(s): 179178580, 629410942 Code(s): Z95.5 - PRESENCE OF CORONARY ANGIOPLASTY IMPLANT AND GRAFT Status: Chronic Priority: Low Current Visit: No (6) 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 SNOMED Code(s): 940045424 Code(s): Z86.79 - PERSONAL HISTORY OF OTHER DISEASES OF THE CIRCULATORY SYSTEM Status: Chronic Priority: Medium Current Visit: No (7) Prostate disorder SNOMED Code(s): 93739675 Code(s): N42.9 - DISORDER OF PROSTATE, UNSPECIFIED Status: Chronic Priority: Low Current Visit: No (8) Arthritis SNOMED Code(s): 3985990 Code(s): M19.90 - UNSPECIFIED OSTEOARTHRITIS, UNSPECIFIED SITE Status: Chronic Priority: Low Current Visit: No (9) History of CVA with residual deficit SNOMED Code(s): 870069207 Code(s): I69.30 - UNSPECIFIED SEQUELAE OF CEREBRAL INFARCTION Status: Chronic Priority: Low Current Visit: No (10) Chronic anticoagulation SNOMED Code(s): 165920741 Code(s): Z79.01 - 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) USE OF ANTICOAGULANTS Status: Chronic Priority: Medium Current Visit: Yes (11) History of skin cancer SNOMED Code(s): 531014273 Code(s): Z85.828 - PERSONAL HISTORY OF OTHER MALIGNANT NEOPLASM OF SKIN Status: Acute Current Visit: Yes (12) Fever and chills SNOMED Code(s): 819297921 Code(s): R50.9 - FEVER, UNSPECIFIED Status: Acute Priority: High Current Visit: Yes (13) Atrial fibrillation SNOMED Code(s): 12608641 Code(s): I48.91 - UNSPECIFIED ATRIAL FIBRILLATION Status: Chronic Priority: Low Current Visit: No Qualifiers: Atrial fibrillation type: unspecified chronic Qualified Code(s): I48.20 - Chronic atrial fibrillation, unspecified; I48.2 - Chronic atrial fibrillation (14) Atypical chest pain SNOMED Code(s): 506328562 Code(s): R07.89 - OTHER CHEST PAIN Status: Acute Priority: Medium Current Visit: Yes (15) Hyperbilirubinemia SNOMED Code(s): 28076805 Code(s): E80.6 - OTHER DISORDERS OF BILIRUBIN METABOLISM Status: Chronic Priority: Low Current Visit: Yes (16) SIRS (systemic inflammatory response syndrome) SNOMED Code(s): 491902144 Code(s): R65.10 - SIRS OF NON-INFECTIOUS ORIGIN W/O ACUTE ORGAN DYSFUNCTION Status: Acute Priority: High Current Visit: Yes (17) Nausea SNOMED Code(s): 734517444 Code(s): R11.0 - NAUSEA Status: Resolved Priority: High Current Visit: Yes (18) High anion gap metabolic acidosis SNOMED Code(s): 03644257 Code(s): E87.2 - ACIDOSIS Status: Ruled-out Priority: High Current Visit: Yes (19) Bacteremia SNOMED Code(s): 9224118 Code(s): R78.81 - BACTEREMIA Status: Acute Priority: High Current Visit: Yes (20) Hypokalemia SNOMED Code(s): 05972414 Code(s): E87.6 - HYPOKALEMIA Status: Acute Priority: High Current Visit: Yes (21) GERD (gastroesophageal reflux disease) SNOMED Code(s): 182755730 Code(s): K21.9 - GASTRO-ESOPHAGEAL REFLUX DISEASE WITHOUT ESOPHAGITIS Status: Acute Priority: High Current Visit: Yes Qualifiers: Esophagitis presence: esophagitis presence not specified Qualified Code(s): K21.9 - Gastro-esophageal reflux disease without esophagitis - Problem List Review Problem List Initiated/Reviewed/Updated: Yes - My Orders Last 24 Hours: My Active Orders 05/03/21 07:28 Potassium Chloride [Klor-Con M20] 40 meq PO ONETIME ONE 05/03/21 09:00 Furosemide [Lasix] 20 mg IVPUSH DAILY 05/03/21 16:00 CULTURE BLOOD [BC] Routine CULTURE BLOOD [BC] Routine Blood Culture x2 Reflex Set [OM.PC] ASDIRECTED 05/04/21 05:11 C-REACTIVE PROTEIN [CHEM] AM CBC WITH AUTO DIFF [HEME] AM COMPREHENSIVE METABOLIC PN,CMP [CHEM] AM MAGNESIUM [CHEM] AM 05/05/21 05:11 C-REACTIVE PROTEIN [CHEM] AM CBC WITH AUTO DIFF [HEME] AM COMPREHENSIVE METABOLIC PN,CMP [CHEM] AM MAGNESIUM [CHEM] AM - Assessment Assessment:: Assessment - day of admission 05/01/2021 * 85-year-old male who presents to ED in the chief writer hours of 05/01/2021 with fever, chills, chest pain, shortness of breath, and nausea * History of A. 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 He does have a loop recorder in place. * Reports the chest pressure is in his anterior chest and is worse with deep inspiration and with lying flat * Denies any hematuria or black or tarry stools. * Was seen in our ED earlier in the day for this chest pain. At that time his chest pain had resolved EKG was obtained showing A. fib at 85 bpm. There is no fever. Labs were grossly normal. Troponin was less than 0.017. CRP was 1.9. Chest x-ray was obtained showing nothing acute. He was ultimately discharged home. * Now reporting rigors and a fever of 102 F. * Twelve-lead EKG is again obtained and shows A. fib at 90 bpm with a PVC but no acute changes. * Labs are obtained: * WBC 11.08. * Hemoglobin 11.3. * Platelet 225,000. * Neutrophils are elevated 71%. There is 10% band neutrophils noted. * 1+ toxic granulation is noted. * D-dimer 0.29. * Sodium 141. * Potassium 4.1. * Chloride 102. * Carbon dioxide 21. * Anion gap 22.1. * BUN is 23. Creatinine 1.3. GFR is 53. * Glucose 102. * Calcium is 8.8. * Total bilirubin is 2.7. * AST is 24, ALT 20, alkaline phosphatase 69. * CK-MB is 0.5. * Troponin is 0.021. * Albumin is 3.5. * Lactic acid is 1.1. * UA is obtained and is negative however 1+ protein, 2+ ketones, 1+ bilirubin are noted. Trace intact blood is also noted. * Influenza a and B are both negative. * SARS Covid 2 RNA is negative. * Blood cultures were obtained. * Patient is started on 2 g Rocephin. He is given IV fluid bolus and started on IV fluids. * SIRS not Sepsis as no end organ dysfunction * Admitted to the medical floor for management of his SIRS with fever of unknown origin. 05/02/2021 Is a 85-year male who was admitted to the floor on 05/01/2021 due to chest pressure, fever, chills, shortness of breath, nausea, and fever. He was started on IV fluids and Rocephin. Blood cultures returned positive for gram-positive cocci in chains and he was switched to IV vancomycin yesterday afternoon. We will repeat blood cultures tomorrow at 1600 after 48 hours of IV vancomycin. We also continue to monitor for blood cultures. Patient does report having had some cuts recently on his arms at work, which have since healed and have no signs of abscess etc. Suspect this is the source of patient's bacteria. CT of the chest abdomen and pelvis was obtained on 05/01/2021 showing small bilateral pleural effusions which are stable from the prior chest CT study. There are also linear densities within both lung bases most likely representing atelectasis. A focal nodular density is noted within the superior segment of the right lower lung measuring 1.6 cm. This is not appreciated on prior exam which could represent small area of pneumonia as well as a small mass. Follow- up is recommended in 3 to 4 months. Other findings are noted which are felt to be stable. Abdomen shows increase stool within the colon and other findings believed to be chronic with nothing acute appreciated. Labs today show a WBC of 7.85. Hemoglobin is 10.0. Platelet is 162,000. Neutrophils are elevated at 85.9%. Sodium is 142. Potassium 3.8. Chloride 110. Carbon dioxide 21. Anion gap is 14.8. BUN is 24. Creatinine 0.9. GFR is greater than 60. Magnesium i s 1.8. Total bilirubin is 1.2. Direct bilirubin is 0.30. Indirect bilirubin is 0.9. AST is 39, ALT 20, alkaline phosphatase 81. CRP is 10.6. Protein is 5.9. Albumin 2.8. Procalcitonin returned 0.42 which was obtained yesterday. Echocardiogram obtained on 05/02/2021 shows 1. LVEF, by visual estimation, is 55 to 60%. 2. Basal inferior segment is abnormal as described below. 3. Normal right ventricular systolic function. 4. Severe thickening and calcification of the aortic valve leaflets. 5. Visually the aortic valve appears severely stenotic. Gradients likely underestimated. PV 3.02 m/s, MG 18mmHg, BRITTANY 1.06 cm2. Incomplete interrogation. 6. Moderate aortic valve regurgitation. 7. Moderate mitral annular calcification. 8. Moderate mitral valve regurgitation. 9. Mild tricuspid valve regurgitation. 10. The right ventricular systolic pressure is moderate to severely elevated at 64.0 mmHg. 11. There is severe biatrial dilation. He is on 20 mg daily p.o. Lasix and we will add 20 mg IV push Lasix to this as he appears to be somewhat fluid overloaded today with crackles in his lungs and mild shortness of breath. We will increase him to 20 mg IV push Lasix tomorrow and reevaluate for future Lasix dosing. LOS likely 4-5 days pending repeat blood cultures. 05/03/2021 85-year-old male admitted to the floor with SIRS. No obvious cause as chest x-r ay and urine looked good. Patient is growing gram-positive cocci in chains now and is bacteremic with 4 out of 4 bottles. Repeat blood cultures will be obtained this afternoon. This will be 48 hours after vancomycin was initiated. Echocardiogram was obtained as noted above with no obvious signs of vegetation. Patient was reportedly hospitalized with endocarditis at [facility] in [place] in the past. Blood cultures obtained at that time grew out strep mitis/oralis. This would obviously be concerning if patient grew this out again, as we have no obvious cause for his bacteremia. Patient did report that he had cut himself a few times recently and this may be the cause of infection. We will await blood culture results and consider discussion with infectious disease if needed. He did report a history of epigastric pain yesterday and does state that he has had several teas in the past along with endoscopy. He reports that he has some scarring in his esophagus. We will start famotidine as he does have symptoms consistent with GERD. Will increase his Lasix dosing and will continue this for now as patient still appears somewhat fluid overloaded. This was evidenced on his echocardiogram as well. Patient was receiving IV fluids due to his infection and these were stopped yesterday. He remains off oxygen with no pedal edema. Labs today show WBC of 6.30. Hemoglobin is 10.0. Platelet 190,000. Neutrophils are elevated 70.9%. Sodium is 142. Potassium is 3.3 and this will be supplemented. Chloride 107. Carbon oxide 23. Anion gap 15.3. BUN is 25. Creatinine is 1.0. GFR greater than 60. Calcium is 8.2. Magnesium 1.8. Total bilirubin 1.1. CRP is 8.2. Protein 5.7. Albumin 2.8. Length of stay will likely be greater than 96 hours has patient will require repeat blood cultures. 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 Godwin VTE prophylaxis: Continue home Eliquis Disposition: Admitted to [facility] with telemetry for further work-up as to cause of fever and chest pain. Likely discharge in 2 to 4 days. Anticipate length of stay greater than 96 hours due to patient requiring repeat blood cultures secondary to bacteremia. <Moy Meek Jr - Last Filed: 05/03/21 18:16> - Patient Data Vitals - Most Recent: Last Vital Signs Temp 97.5 F 05/03/21 15:24 Pulse 80 05/03/21 15:24 Resp 21 H 05/03/21 15:24 BP 127/77 05/03/21 15:24 Pulse Ox 97 05/03/21 15:24 I&O - Last 24 Hours: Intake & Output 05/03/21 05/03/21 05/03/21 06:59 14:59 22:59 Intake Total 300 590 Output Total 650 600 Balance -350 -10 Lab Results Last 24 Hours: Laboratory Results - last 24 hr 05/03/21 05/03/21 05/03/21 Range/Units 03:35 03:35 03:35 WBC 6.30 (4.23-9.07) K/mm3 RBC 3.73 L (4.63-6.08) M/mm3 Hgb 10.0 L (13.7-17.5) gm/dl Hct 32.6 L (40.1-51.0) % MCV 87.4 (79.0-92.2) fl MCH 26.8 (25.7-32.2) pg MCHC 30.7 L (32.2-35.5) g/dl RDW Std Deviation 43.4 (35.1-43.9) fL Plt Count 190 (163-337) K/mm3 MPV 10.2 (9.4-12.3) fl Neut % (Auto) 70.9 H (34.0-67.9) % Lymph % (Auto) 14.6 L (21.8-53.1) % [place] % (Auto) 11.9 (5.3-12.2) % Eos % (Auto) 2.2 (0.8-7.0) Baso % (Auto) 0.2 (0.1-1.2) % Neut # (Auto) 4.47 (1.78-5.38) K/mm3 Lymph # (Auto) 0.92 L (1.32-3.57) K/mm3 [place] # (Auto) 0.75 (0.30-0.82) K/mm3 Eos # (Auto) 0.14 (0.04-0.54) K/mm3 Baso # (Auto) 0.01 (0.01-0.08) K/mm3 Sodium 142 (136-145) mEq/L Potassium 3.3 L (3.5-5.1) mEq/L Chloride 107 (98-107) mEq/L Carbon Dioxide 23 (21-32) mEq/L Anion Gap 15.3 H (5-15) BUN 25 H (7-18) mg/dL Creatinine 1.0 (0.7-1.3) mg/dL Est Cr Clr Drug Dosing 54.99 mL/min Estimated GFR (MDRD) > 60 (>60) mL/min BUN/Creatinine Ratio 25.0 H (14-18) Glucose 86 (70-99) mg/dL Calcium 8.2 L (8.5-10.1) mg/dL Magnesium 1.8 (1.8-2.4) mg/dL Total Bilirubin 1.1 H (0.2-1.0) mg/dL AST 27 (15-37) U/L ALT 22 (16-63) U/L Alkaline Phosphatase 75 (46-116) U/L C-Reactive Protein 8.2 H* (<1.0) mg/dL Total Protein 5.7 L (6.4-8.2) g/dl Albumin 2.8 L (3.4-5.0) g/dl Globulin 2.9 gm/dL Albumin/Globulin Ratio 1.0 (1-2) Vancomycin Trough 14.1 (10.0-20.0) Nasir Results Last 24 Hours: Microbiology 05/01/21 01:45 Aerobic Blood Culture - Preliminary Blood - Venous Enterococcus Species, Not Vre Anaerobic Blood Culture - Preliminary Gram Positive Cocci In Chains 05/01/21 01:55 Aerobic Blood Culture - Preliminary Blood - Venous - Lab Draw Gram Positive Cocci In Chains Anaerobic Blood Culture - Preliminary Gram Positive Cocci In Chains Med Orders - Current: Current Medications Acetaminophen (Acetaminophen 325 Mg Tab) 650 mg PO Q4H PRN PRN Reason: Pain Last Admin: 05/01/21 21:00 Dose: 650 mg Documented by: Al Hydroxide/Mg Hydroxide (Aluminum Hydroxide/Magnesium Hydroxide/Simethicone Susp 30 Ml Cup) 30 ml PO Q4H PRN PRN Reason: Heartburn Last Admin: 05/02/21 12:47 Dose: 30 ml Documented by: Apixaban (Apixaban 5 Mg Tab) 5 mg PO BID [facility] Last Admin: 05/03/21 08:03 Dose: 5 mg Documented by: Aspirin (Aspirin 81 Mg Tab.Ec) 81 mg PO DAILY [facility] Last Admin: 05/03/21 08:03 Dose: 81 mg Documented by: Docusate Sodium (Docusate Sodium 100 Mg Cap) 100 mg PO DAILY PRN PRN Reason: Constipation Famotidine (Famotidine 20 Mg Tab) 20 mg PO BID [facility] Last Admin: 05/03/21 11:32 Dose: 20 mg Documented by: Furosemide (Furosemide 20 Mg/2 Ml Vial) 20 mg IVPUSH DAILY [facility] Last Admin: 05/03/21 08:00 Dose: 20 mg Documented by: Vancomycin HCl 1 gm/Vancomycin HCl 250 mg/ Sodium Chloride 250 mls @ 166 mls/hr IV Q18H [facility] Last Admin: 05/03/21 04:45 Dose: 166 mls/hr Documented by: Lisinopril (Lisinopril 20 Mg Tab) 40 mg PO DAILY [facility] Last Admin: 05/03/21 08:00 Dose: 40 mg Documented by: Magnesium Hydroxide (Magnesium Hydroxide 400 Mg/5 Ml Susp 30 Ml Cup) 30 ml PO Q12H PRN PRN Reason: Constipation Metoprolol Succinate (Metoprolol Succinate 50 Mg Tab.Er) 50 mg PO DAILY [facility] Last Admin: 05/03/21 08:03 Dose: 50 mg Documented by: Nitroglycerin (Nitroglycerin 0.4 Mg Tab.Sl) 0.4 mg SL Q5M PRN PRN Reason: Chest Pain Ondansetron HCl (Ondansetron 4 Mg/2 Ml Sdv) 4 mg IVPUSH Q4H PRN PRN Reason: Nausea Last Admin: 05/01/21 08:25 Dose: 4 mg Documented by: Vancomycin HCl (Pharmacy To Dose - Vancomycin) 0 dose .XX ASDIRECTED PRN PRN Reason: RX TO DOSE VANCOMYCIN Discontinued Medications Ceftriaxone Sodium (Ceftriaxone 2 Gm Advvial) Confirm Administered Dose 2 gm IV .STK-MED ONE Stop: 05/01/21 03:01 Last Admin: 05/01/21 03:04 Dose: Not Given Documented by: Diatrizoate Meglum/Diatrizoate Sod (Diatrizoate Meglumine/Diatrizoate Sodium 37% 120 Ml Bottle) 120 ml PO ONETIME ONE Stop: 05/01/21 09:00 Last Admin: 05/01/21 10:06 Dose: 30 ml Documented by: Furosemide (Furosemide 20 Mg Tab) 20 mg PO DAILY [facility] Last Admin: 05/02/21 08:36 Dose: 20 mg Documented by: Furosemide (Furosemide 40 Mg/4 Ml Vial) 40 mg IVPUSH NOW ONE Stop: 05/02/21 09:53 Furosemide (Furosemide 20 Mg/2 Ml Vial) 20 mg IVPUSH ONETIME ONE Stop: 05/02/21 09:54 Last Admin: 05/02/21 10:02 Dose: 20 mg Documented by: Sodium Chloride (Normal Saline) 1,000 mls @ 250 mls/hr IV ONETIME ONE Stop: 05/01/21 05:10 Last Admin: 05/01/21 01:21 Dose: 250 mls/hr Documented by: Ceftriaxone Sodium 2 gm/ (Sodium Chloride) 100 mls @ 200 mls/hr IV ONETIME ONE Stop: 05/01/21 03:24 Last Admin: 05/01/21 03:03 Dose: 200 mls/hr Documented by: Sodium Chloride (Normal Saline) Confirm Administered Dose 100 mls @ as directed .ROUTE .STK-MED ONE Stop: 05/01/21 03:01 Last Admin: 05/01/21 03:03 Dose: Not Given Documented by: Ceftriaxone Sodium 2 gm/ (Sodium Chloride) 100 mls @ 200 mls/hr IV Q24H [facility] Sodium Chloride (Normal Saline) 1,000 mls @ 150 mls/hr IV ASDIRECTED [facility] Last Admin: 05/02/21 03:46 Dose: 150 mls/hr Documented by: Azithromycin 500 mg/ Sodium (Chloride) 250 mls @ 250 mls/hr IV Q24H [facility] Last Admin: 05/01/21 15:22 Dose: 250 mls/hr Documented by: Vancomycin HCl 1 gm/Vancomycin HCl 500 mg/ Sodium Chloride 500 mls @ 250 mls/hr IV ONETIME ONE Stop: 05/01/21 18:59 Last Admin: 05/01/21 16:37 Dose: 250 mls/hr Documented by: Potassium Chloride 10 meq/ (Premix) 100 mls @ 100 mls/hr IV Q1H [facility] Stop: 05/03/21 14:29 Last Admin: 05/03/21 12:48 Dose: Not Given Documented by: Sodium Chloride (Normal Saline) 250 mls @ 50 mls/hr IV ONETIME ONE Stop: 05/03/21 16:14 Last Admin: 05/03/21 11:32 Dose: 50 mls/hr Documented by: Iopamidol (Iopamidol 612 Mg/Ml 100 Ml Bottle) 100 ml IVPUSH ONETIME ONE Stop: 05/01/21 09:00 Last Admin: 05/01/21 10:06 Dose: 100 ml Documented by: Lorazepam (Lorazepam 0.5 Mg Tab) 0.5 mg PO ONETIME ONE Stop: 05/01/21 06:26 Last Admin: 05/01/21 06:32 Dose: 0.5 mg Documented by: Potassium Bicarbonate (Potassium Bicarbonate/Cit Ac 10 Meq Effervescent Tab) 10 meq PO ONETIME ONE Stop: 05/03/21 12:46 Last Admin: 05/03/21 12:47 Dose: 10 meq Documented by: Potassium Chloride (Potassium Chloride 20 Meq Tab.Er) 40 meq PO ONETIME ONE Stop: 05/03/21 07:29 Last Admin: 05/03/21 07:58 Dose: 40 meq Documented by: Sodium Chloride (Sodium Chloride 0.9% 10 Ml Syringe) 10 ml FLUSH ONETIME PRN PRN Reason: IV FLUSH Stop: 05/01/21 12:00 Last Admin: 05/01/21 10:06 Dose: 10 ml Documented by: Vancomycin HCl (Vancomycin 500 Mg Sdv) Confirm Administered Dose 500 mg .ROUTE .STK-MED ONE Stop: 05/02/21 09:57 Last Admin: 05/02/21 10:12 Dose: Not Given Documented by: Vancomycin HCl (Vancomycin 1 Gm Sdv) Confirm Administered Dose 1 gm .ROUTE .STK- MED ONE Stop: 05/02/21 09:57 Last Admin: 05/02/21 10:12 Dose: Not Given Documented by: - Patient Data Lab Results Last 24 hrs: Laboratory Results - last 24 hr 05/03/21 05/03/21 05/03/21 Range/Units 03:35 03:35 03:35 WBC 6.30 (4.23-9.07) K/mm3 RBC 3.73 L (4.63-6.08) M/mm3 Hgb 10.0 L (13.7-17.5) gm/dl Hct 32.6 L (40.1-51.0) % MCV 87.4 (79.0-92.2) fl MCH 26.8 (25.7-32.2) pg MCHC 30.7 L (32.2-35.5) g/dl RDW Std Deviation 43.4 (35.1-43.9) fL Plt Count 190 (163-337) K/mm3 MPV 10.2 (9.4-12.3) fl Neut % (Auto) 70.9 H (34.0-67.9) % Lymph % (Auto) 14.6 L (21.8-53.1) % [place] % (Auto) 11.9 (5.3-12.2) % Eos % (Auto) 2.2 (0.8-7.0) Baso % (Auto) 0.2 (0.1-1.2) % Neut # (Auto) 4.47 (1.78-5.38) K/mm3 Lymph # (Auto) 0.92 L (1.32-3.57) K/mm3 [place] # (Auto) 0.75 (0.30-0.82) K/mm3 Eos # (Auto) 0.14 (0.04-0.54) K/mm3 Baso # (Auto) 0.01 (0.01-0.08) K/mm3 Sodium 142 (136-145) mEq/L Potassium 3.3 L (3.5-5.1) mEq/L Chloride 107 (98-107) mEq/L Carbon Dioxide 23 (21-32) mEq/L Anion Gap 15.3 H (5-15) BUN 25 H (7-18) mg/dL Creatinine 1.0 (0.7-1.3) mg/dL Est Cr Clr Drug Dosing 54.99 mL/min Estimated GFR (MDRD) > 60 (>60) mL/min BUN/Creatinine Ratio 25.0 H (14-18) Glucose 86 (70-99) mg/dL Calcium 8.2 L (8.5-10.1) mg/dL Magnesium 1.8 (1.8-2.4) mg/dL Total Bilirubin 1.1 H (0.2-1.0) mg/dL AST 27 (15-37) U/L ALT 22 (16-63) U/L Alkaline Phosphatase 75 (46-116) U/L C-Reactive Protein 8.2 H* (<1.0) mg/dL Total Protein 5.7 L (6.4-8.2) g/dl Albumin 2.8 L (3.4-5.0) g/dl Globulin 2.9 gm/dL Albumin/Globulin Ratio 1.0 (1-2) Vancomycin Trough 14.1 (10.0-20.0) Result Diagrams: 05/03/21 03:35 05/03/21 03:35 Nasir Results Last 24 hrs: Microbiology 05/01/21 01:45 Aerobic Blood Culture - Preliminary Blood - Venous Enterococcus Species, Not Vre Anaerobic Blood Culture - Preliminary Gram Positive Cocci In [facility] 05/01/21 01:55 Aerobic Blood Culture - Preliminary Blood - Venous - Lab Draw Gram Positive Cocci In [facility] Anaerobic Blood Culture - Preliminary Gram Positive Cocci In [facility] Sepsis Event Note - Focused Exam Vital Signs: Vital Signs Temp Pulse Resp BP Pulse Ox 05/03/21 15:24 97.5 F 80 21 H 127/77 97 05/03/21 15:00 25 H 05/03/21 14:00 23 H 05/03/21 13:00 16 05/03/21 12:00 18 05/03/21 11:00 17 05/03/21 10:00 17 05/03/21 09:00 14 05/03/21 08:03 77 138/63 05/03/21 08:02 97.9 F 77 18 138/63 97 05/03/21 08:00 138/63 - My Orders Last 24 Hours: My Active Orders 05/05/21 10:00 VANCOMYCIN TROUGH [CHEM] Timed - Plan Plan:: Case discussed in full. Agree with evaluation, assessment and plan.
[2021-05-03] MEDS: Lisinopril 20 MG Tab PO SCH (08:00)
[2021-05-03] MEDS: Furosemide 20 MG/2 ML VIAL IVPUSH SCH (08:00)
[2021-05-03] MEDS: Apixaban 5 MG Tab PO SCH ×2 (08:03→20:13)
[2021-05-03] MEDS: Aspirin 81 MG Tab.EC PO SCH (08:03)
[2021-05-03] MEDS: Metoprolol Succinate 50 MG Tab.ER PO SCH (08:03)
[2021-05-03] MEDS ORDERED: Sodium Chloride 0.9% 250 ML IV ONE (11:15)
[2021-05-03] MEDS: Potassium Chloride 10 MEQ in Premix Bag 1 BAG IV SCH ×2 (11:31→12:48)
[2021-05-03] MEDS: Famotidine 20 MG Tab PO SCH ×2 (11:32→20:13)
[2021-05-03] MEDS ORDERED: Potassium Bicarbonate/Cit Ac 10 MEQ Effervescent Tab PO ONE (12:45)
[2021-05-04] MEDS: Metoprolol Succinate 50 MG Tab.ER PO SCH (08:09)
[2021-05-04] MEDS: Furosemide 20 MG/2 ML VIAL IVPUSH SCH (08:09)
[2021-05-04] MEDS: Apixaban 5 MG Tab PO SCH ×2 (08:09→21:04)
[2021-05-04] MEDS: Aspirin 81 MG Tab.EC PO SCH (08:12)
[2021-05-04] MEDS: Lisinopril 20 MG Tab PO SCH (08:12)
[2021-05-04] MEDS: Famotidine 20 MG Tab PO SCH ×2 (08:12→21:04)
[2021-05-04] MEDS: Linezolid 600 MG Tab PO SCH ×2 (09:30→21:03)
--- NOTE | 2021-05-04 10:18 | PCM.PN ---
- General Info Date of Service: 05/04/21 Admission Dx/Problem (Free Text): Admission Diagnosis/Problem Admission Diagnosis/Problem Sepsis Subjective Update: No acute events overnight. No new nursing concerns. No nocturnal fever recorded. Patient states that occasionally feels short of breath when up walking around. Otherwise, denies any chest pain, chest pressure or pleurisy. No abdominal discomfort. Tolerating p.o. Able to void without complication. - Patient Data Vitals - Most Recent: Last Vital Signs Temp 98.1 F 05/04/21 08:11 Pulse 78 05/04/21 08:11 Resp 18 05/04/21 08:11 BP 167/53 H 05/04/21 08:12 Pulse Ox 97 05/04/21 08:11 Weight - Most Recent: 183 lb 4.8 oz I&O - Last 24 Hours: Intake & Output 05/03/21 05/04/21 05/04/21 22:59 06:59 14:59 Intake Total 590 850 Output Total 600 550 Balance -10 300 Lab Results Last 24 Hours: Laboratory Results - last 24 hr 05/04/21 05/04/21 Range/Units 04:49 04:49 WBC 5.27 (4.23-9.07) K/mm3 RBC 3.72 L (4.63-6.08) M/mm3 Hgb 10.0 L (13.7-17.5) gm/dl Hct 32.6 L (40.1-51.0) % MCV 87.6 (79.0-92.2) fl MCH 26.9 (25.7-32.2) pg MCHC 30.7 L (32.2-35.5) g/dl RDW Std Deviation 42.5 (35.1-43.9) fL Plt Count 183 (163-337) K/mm3 MPV 10.4 (9.4-12.3) fl Neut % (Auto) 71.7 H (34.0-67.9) % Lymph % (Auto) 15.0 L (21.8-53.1) % [place] % (Auto) 10.1 (5.3-12.2) % Eos % (Auto) 2.8 (0.8-7.0) Baso % (Auto) 0.2 (0.1-1.2) % Neut # (Auto) 3.78 (1.78-5.38) K/mm3 Lymph # (Auto) 0.79 L (1.32-3.57) K/mm3 [place] # (Auto) 0.53 (0.30-0.82) K/mm3 Eos # (Auto) 0.15 (0.04-0.54) K/mm3 Baso # (Auto) 0.01 (0.01-0.08) K/mm3 Sodium 146 H (136-145) mEq/L Potassium 3.5 (3.5-5.1) mEq/L Chloride 110 H (98-107) mEq/L Carbon Dioxide 26 (21-32) mEq/L Anion Gap 13.5 (5-15) BUN 21 H (7-18) mg/dL Creatinine 0.9 (0.7-1.3) mg/dL Est Cr Clr Drug Dosing 61.10 mL/min Estimated GFR (MDRD) > 60 (>60) mL/min BUN/Creatinine Ratio 23.3 H (14-18) Glucose 105 H (70-99) mg/dL Calcium 8.3 L (8.5-10.1) mg/dL Magnesium 1.9 (1.8-2.4) mg/dL Total Bilirubin 1.0 (0.2-1.0) mg/dL AST 26 (15-37) U/L ALT 18 (16-63) U/L Alkaline Phosphatase 68 (46-116) U/L C-Reactive Protein 5.8 H* (<1.0) mg/dL Total Protein 5.7 L (6.4-8.2) g/dl Albumin 2.8 L (3.4-5.0) g/dl Globulin 2.9 gm/dL Albumin/Globulin Ratio 1.0 (1-2) Nasir Results Last 24 Hours: Microbiology 05/01/21 01:55 Aerobic Blood Culture - Preliminary Blood - Venous - Lab Draw Enterococcus Species, Not Vre Anaerobic Blood Culture - Preliminary Enterococcus Species, Not Vre 05/01/21 01:45 Aerobic Blood Culture - Preliminary Blood - Venous Enterococcus Species, Not Vre Anaerobic Blood Culture - Preliminary Enterococcus Species, Not Vre Med Orders - Current: Current Medications Acetaminophen (Acetaminophen 325 Mg Tab) 650 mg PO Q4H PRN PRN Reason: Pain Last Admin: 05/01/21 21:00 Dose: 650 mg Documented by: Al Hydroxide/Mg Hydroxide (Aluminum Hydroxide/Magnesium Hydroxide/Simethicone Susp 30 Ml Cup) 30 ml PO Q4H PRN PRN Reason: Heartburn Last Admin: 05/02/21 12:47 Dose: 30 ml Documented by: Apixaban (Apixaban 5 Mg Tab) 5 mg PO BID [facility] Last Admin: 05/04/21 08:09 Dose: 5 mg Documented by: Aspirin (Aspirin 81 Mg Tab.Ec) 81 mg PO DAILY [facility] Last Admin: 05/04/21 08:12 Dose: 81 mg Documented by: Docusate Sodium (Docusate Sodium 100 Mg Cap) 100 mg PO DAILY PRN PRN Reason: Constipation Famotidine (Famotidine 20 Mg Tab) 20 mg PO BID [facility] Last Admin: 05/04/21 08:12 Dose: 20 mg Documented by: Furosemide (Furosemide 20 Mg/2 Ml Vial) 20 mg IVPUSH DAILY [facility] Last Admin: 05/04/21 08:09 Dose: 20 mg Documented by: Linezolid (Linezolid 600 Mg Tab) 600 mg PO Q12H [facility] Last Admin: 05/04/21 09:30 Dose: 600 mg Documented by: Lisinopril (Lisinopril 20 Mg Tab) 40 mg PO DAILY [facility] Last Admin: 05/04/21 08:12 Dose: 40 mg Documented by: Magnesium Hydroxide (Magnesium Hydroxide 400 Mg/5 Ml Susp 30 Ml Cup) 30 ml PO Q12H PRN PRN Reason: Constipation Metoprolol Succinate (Metoprolol Succinate 50 Mg Tab.Er) 50 mg PO DAILY [facility] Last Admin: 05/04/21 08:09 Dose: 50 mg Documented by: Nitroglycerin (Nitroglycerin 0.4 Mg Tab.Sl) 0.4 mg SL Q5M PRN PRN Reason: Chest Pain Ondansetron HCl (Ondansetron 4 Mg/2 Ml Sdv) 4 mg IVPUSH Q4H PRN PRN Reason: Nausea Last Admin: 05/01/21 08:25 Dose: 4 mg Documented by: Discontinued Medications Ceftriaxone Sodium (Ceftriaxone 2 Gm Advvial) Confirm Administered Dose 2 gm IV .K-MED ONE Stop: 05/01/21 03:01 Last Admin: 05/01/21 03:04 Dose: Not Given Documented by: Diatrizoate Meglum/Diatrizoate Sod (Diatrizoate Meglumine/Diatrizoate Sodium 37% 120 Ml Bottle) 120 ml PO ONETIME ONE Stop: 05/01/21 09:00 Last Admin: 05/01/21 10:06 Dose: 30 ml Documented by: Furosemide (Furosemide 20 Mg Tab) 20 mg PO DAILY [facility] Last Admin: 05/02/21 08:36 Dose: 20 mg Documented by: Furosemide (Furosemide 40 Mg/4 Ml Vial) 40 mg IVPUSH NOW ONE Stop: 05/02/21 09:53 Furosemide (Furosemide 20 Mg/2 Ml Vial) 20 mg IVPUSH ONETIME ONE Stop: 05/02/21 09:54 Last Admin: 05/02/21 10:02 Dose: 20 mg Documented by: Sodium Chloride (Normal Saline) 1,000 mls @ 250 mls/hr IV ONETIME ONE Stop: 05/01/21 05:10 Last Admin: 05/01/21 01:21 Dose: 250 mls/hr Documented by: Ceftriaxone Sodium 2 gm/ (Sodium Chloride) 100 mls @ 200 mls/hr IV ONETIME ONE Stop: 05/01/21 03:24 Last Admin: 05/01/21 03:03 Dose: 200 mls/hr Documented by: Sodium Chloride (Normal Saline) Confirm Administered Dose 100 mls @ as directed .ROUTE .STK-MED ONE Stop: 05/01/21 03:01 Last Admin: 05/01/21 03:03 Dose: Not Given Documented by: Ceftriaxone Sodium 2 gm/ (Sodium Chloride) 100 mls @ 200 mls/hr IV Q24H [facility] Sodium Chloride (Normal Saline) 1,000 mls @ 150 mls/hr IV ASDIRECTED [facility] Last Admin: 05/02/21 03:46 Dose: 150 mls/hr Documented by: Azithromycin 500 mg/ Sodium (Chloride) 250 mls @ 250 mls/hr IV Q24H [facility] Last Admin: 05/01/21 15:22 Dose: 250 mls/hr Documented by: Vancomycin HCl 1 gm/Vancomycin HCl 500 mg/ Sodium Chloride 500 mls @ 250 mls/hr IV ONETIME ONE Stop: 05/01/21 18:59 Last Admin: 05/01/21 16:37 Dose: 250 mls/hr Documented by: Vancomycin HCl 1 gm/Vancomycin HCl 250 mg/ Sodium Chloride 250 mls @ 166 mls/hr IV Q18H [place] Last Admin: 05/03/21 23:40 Dose: 166 mls/hr Documented by: Potassium Chloride 10 meq/ (Premix) 100 mls @ 100 mls/hr IV Q1H [place] Stop: 05/03/21 14:29 Last Admin: 05/03/21 12:48 Dose: Not Given Documented by: Sodium Chloride (Normal Saline) 250 mls @ 50 mls/hr IV ONETIME ONE Stop: 05/03/21 16:14 Last Admin: 05/03/21 11:32 Dose: 50 mls/hr Documented by: Iopamidol (Iopamidol 612 Mg/Ml 100 Ml Bottle) 100 ml IVPUSH ONETIME ONE Stop: 05/01/21 09:00 Last Admin: 05/01/21 10:06 Dose: 100 ml Documented by: Lorazepam (Lorazepam 0.5 Mg Tab) 0.5 mg PO ONETIME ONE Stop: 05/01/21 06:26 Last Admin: 05/01/21 06:32 Dose: 0.5 mg Documented by: Potassium Bicarbonate (Potassium Bicarbonate/Cit Ac 10 Meq Effervescent Tab) 10 meq PO ONETIME ONE Stop: 05/03/21 12:46 Last Admin: 05/03/21 12:47 Dose: 10 meq Documented by: Potassium Chloride (Potassium Chloride 20 Meq Tab.Er) 40 meq PO ONETIME ONE Stop: 05/03/21 07:29 Last Admin: 05/03/21 07:58 Dose: 40 meq Documented by: Sodium Chloride (Sodium Chloride 0.9% 10 Ml Syringe) 10 ml FLUSH ONETIME PRN PRN Reason: IV FLUSH Stop: 05/01/21 12:00 Last Admin: 05/01/21 10:06 Dose: 10 ml Documented by: Vancomycin HCl (Pharmacy To Dose - Vancomycin) 0 dose .XX ASDIRECTED PRN PRN Reason: RX TO DOSE VANCOMYCIN Vancomycin HCl (Vancomycin 500 Mg Sdv) Confirm Administered Dose 500 mg .ROUTE .STK-MED ONE Stop: 05/02/21 09:57 Last Admin: 05/02/21 10:12 Dose: Not Given Documented by: Vancomycin HCl (Vancomycin 1 Gm Sdv) Confirm Administered Dose 1 gm .ROUTE .STK- MED ONE Stop: 05/02/21 09:57 Last Admin: 05/02/21 10:12 Dose: Not Given Documented by: - Exam General: Alert Lungs: Clear to Auscultation, Normal Respiratory Effort Cardiovascular: Regular Rate, Murmurs GI/Abdominal Exam: Normal Bowel Sounds, Soft, Non-Tender Extremities: Normal Inspection, No Pedal Edema Skin: Warm, Dry - Patient Data Lab Results Last 24 hrs: Laboratory Results - last 24 hr 05/04/21 05/04/21 Range/Units 04:49 04:49 WBC 5.27 (4.23-9.07) K/mm3 RBC 3.72 L (4.63-6.08) M/mm3 Hgb 10.0 L (13.7-17.5) gm/dl Hct 32.6 L (40.1-51.0) % MCV 87.6 (79.0-92.2) fl MCH 26.9 (25.7-32.2) pg MCHC 30.7 L (32.2-35.5) g/dl RDW Std Deviation 42.5 (35.1-43.9) fL Plt Count 183 (163-337) K/mm3 MPV 10.4 (9.4-12.3) fl Neut % (Auto) 71.7 H (34.0-67.9) % Lymph % (Auto) 15.0 L (21.8-53.1) % [place] % (Auto) 10.1 (5.3-12.2) % Eos % (Auto) 2.8 (0.8-7.0) Baso % (Auto) 0.2 (0.1-1.2) % Neut # (Auto) 3.78 (1.78-5.38) K/mm3 Lymph # (Auto) 0.79 L (1.32-3.57) K/mm3 [place] # (Auto) 0.53 (0.30-0.82) K/mm3 Eos # (Auto) 0.15 (0.04-0.54) K/mm3 Baso # (Auto) 0.01 (0.01-0.08) K/mm3 Sodium 146 H (136-145) mEq/L Potassium 3.5 (3.5-5.1) mEq/L Chloride 110 H (98-107) mEq/L Carbon Dioxide 26 (21-32) mEq/L Anion Gap 13.5 (5-15) BUN 21 H (7-18) mg/dL Creatinine 0.9 (0.7-1.3) mg/dL Est Cr Clr Drug Dosing 61.10 mL/min Estimated GFR (MDRD) > 60 (>60) mL/min BUN/Creatinine Ratio 23.3 H (14-18) Glucose 105 H (70-99) mg/dL Calcium 8.3 L (8.5-10.1) mg/dL Magnesium 1.9 (1.8-2.4) mg/dL Total Bilirubin 1.0 (0.2-1.0) mg/dL AST 26 (15-37) U/L ALT 18 (16-63) U/L Alkaline Phosphatase 68 (46-116) U/L C-Reactive Protein 5.8 H* (<1.0) mg/dL Total Protein 5.7 L (6.4-8.2) g/dl Albumin 2.8 L (3.4-5.0) g/dl Globulin 2.9 gm/dL Albumin/Globulin Ratio 1.0 (1-2) Result Diagrams: 05/04/21 04:49 05/04/21 04:49 Nasir Results Last 24 hrs: Microbiology 05/01/21 01:55 Aerobic Blood Culture - Preliminary Blood - Venous - Lab Draw Enterococcus Species, Not Vre Anaerobic Blood Culture - Preliminary Enterococcus Species, Not Vre 05/01/21 01:45 Aerobic Blood Culture - Preliminary Blood - Venous Enterococcus Species, Not Vre Anaerobic Blood Culture - Preliminary Enterococcus Species, Not Vre Sepsis Event Note - Evaluation Sepsis Screening Result: No Definite Risk - Focused Exam Vital Signs: Vital Signs Temp Pulse Resp BP Pulse Ox 05/04/21 08:12 167/53 H 05/04/21 08:11 98.1 F 78 18 167/53 H 97 05/04/21 08:09 83 167/53 H 05/04/21 04:26 98.1 F 71 18 132/65 96 05/03/21 23:37 98.8 F 75 16 154/72 H 97 - Problem List Review Problem List Initiated/Reviewed/Updated: Yes - My Orders Last 24 Hours: My Active Orders 05/04/21 09:15 Linezolid [Zyvox] 600 mg PO Q12H - Assessment Assessment:: Assessment - day of admission 05/01/2021 * 85-year-old male who presents to ED 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 He does have a loop recorder in place. * Reports the chest pressure is in his anterior chest and is worse with deep inspiration and with lying flat * Denies any hematuria or black or tarry stools. * Was seen in our ED earlier in the day for this chest pain. At that time his chest pain had resolved EKG was obtained showing A. fib at 85 bpm. There is no fever. Labs were grossly normal. Troponin was less than 0.017. CRP was 1.9. Chest x-ray was obtained showing nothing acute. He was ultimately discharged home. * Now reporting rigors and a fever of 102 F. * Twelve-lead EKG is again obtained and shows A. fib at 90 bpm with a PVC but no acute changes. * Labs are obtained: * WBC 11.08. * Hemoglobin 11.3. * Platelet 225,000. * Neutrophils are elevated 71%. There is 10% band neutrophils noted. * 1+ toxic granulation is noted. * D-dimer 0.29. * Sodium 141. * Potassium 4.1. * Chloride 102. * Carbon dioxide 21. * Anion gap 22.1. * BUN is 23. Creatinine 1.3. GFR is 53. * Glucose 102. * Calcium is 8.8. * Total bilirubin is 2.7. * AST is 24, ALT 20, alkaline phosphatase 69. * CK-MB is 0.5. * Troponin is 0.021. * Albumin is 3.5. * Lactic acid is 1.1. * UA is obtained and is negative however 1+ protein, 2+ ketones, 1+ bilirubin are noted. Trace intact blood is also noted. * Influenza a and B are both negative. * SARS Covid 2 RNA is negative. * Blood cultures were obtained. * Patient is started on 2 g Rocephin. He is given IV fluid bolus and started on IV fluids. * SIRS not Sepsis as no end organ dysfunction * Admitted to the medical floor for management of his SIRS with fever of unknown origin. 05/02/2021 Is a 85-year male who was admitted to the floor on 05/01/2021 due to chest pressure, fever, chills, shortness of breath, nausea, and fever. He was started on IV fluids and Rocephin. Blood cultures returned positive for gram-positive cocci in chains and he was switched to IV vancomycin yesterday afternoon. We will repeat blood cultures tomorrow at 1600 after 48 hours of IV vancomycin. We also continue to monitor for blood cultures. Patient does report having had some cuts recently on his arms at work, which have since healed and have no signs of abscess etc. Suspect this is the source of patient's bacteria. CT of the chest abdomen and pelvis was obtained on 05/01/2021 showing small bilateral pleural effusions which are stable from the prior chest CT study. There are also linear densities within both lung bases most likely representing atelectasis. A focal nodular density is noted within the superior segment of the right lower lung measuring 1.6 cm. This is not appreciated on prior exam which could represent small area of pneumonia as well as a small mass. Follow- up is recommended in 3 to 4 months. Other findings are noted which are felt to be stable. Abdomen shows increase stool within the colon and other findings believed to be chronic with nothing acute appreciated. Labs today show a WBC of 7.85. Hemoglobin is 10.0. Platelet is 162,000. Neutrophils are elevated at 85.9%. Sodium is 142. Potassium 3.8. Chloride 110. Carbon dioxide 21. Anion gap is 14.8. BUN is 24. Creatinine 0.9. GFR is greater than 60. Magnesium is 1.8. Total bilirubin is 1.2. Direct bilirubin is 0.30. Indirect bilirubin is 0.9. AST is 39, ALT 20, alkaline phosphatase 81. CRP is 10.6. Protein is 5.9. Albumin 2.8. Procalcitonin returned 0.42 which was obtained yesterday. Echocardiogram obtained on 05/02/2021 shows 1. LVEF, by visual estimation, is 55 to 60%. 2. Basal inferior segment is abnormal as described below. 3. Normal right ventricular systolic function. 4. Severe thickening and calcification of the aortic valve leaflets. 5. Visually the aortic valve appears severely stenotic. Gradients likely underestimated. PV 3.02 m/s, MG 18mmHg, BRITTANY 1.06 cm2. Incomplete interrogation. 6. Moderate aortic valve regurgitation. 7. Moderate mitral annular calcification. 8. Moderate mitral valve regurgitation. 9. Mild tricuspid valve regurgitation. 10. The right ventricular systolic pressure is moderate to severely elevated at 64.0 mmHg. 11. There is severe biatrial dilation. He is on 20 mg daily p.o. 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 We will increase him to 20 mg IV push Lasix tomorrow and reevaluate for future Lasix dosing. LOS likely 4-5 days pending repeat blood cultures. 05/03/2021 85-year-old male admitted to the floor with SIRS. No obvious cause as chest x- ray and urine looked good. Patient is growing gram-positive cocci in chains now and is bacteremic with 4 out of 4 bottles. Repeat blood cultures will be obtained this afternoon. This will be 48 hours after vancomycin was initiated. Echocardiogram was obtained as noted above with no obvious signs of vegetation. Patient was reportedly hospitalized with endocarditis at [facility] in [place] in the past. Blood cultures obtained at that time grew out strep mitis/oralis. This would obviously be concerning if patient grew this out again, as we have no obvious cause for his bacteremia. Patient did report that he had cut himself a few times recently and this may be the cause of infection. We will await blood culture results and consider discussion with infectious disease if needed. He did report a history of epigastric pain yesterday and does state that he has had several teas in the past along with endoscopy. He reports that he has some scarring in his esophagus. We will start famotidine as he does have symptoms consistent with GERD. Will increase his Lasix dosing and will continue this for now as patient still appears somewhat fluid overloaded. This was evidenced on his echocardiogram as well. Patient was receiving IV fluids due to his infection and these were stopped yesterday. He remains off oxygen with no pedal edema. Labs today show WBC of 6.30. Hemoglobin is 10.0. Platelet 190,000. Neutrophils are elevated 70.9%. Sodium is 142. Potassium is 3.3 and this will be supplemented. Chloride 107. Carbon oxide 23. Anion gap 15.3. BUN is 25. Creatinine is 1.0. GFR greater than 60. Calcium is 8.2. Magnesium 1.8. Total bilirubin 1.1. CRP is 8.2. Protein 5.7. Albumin 2.8. Length of stay will likely be greater than 96 hours has patient will require repeat blood cultures. - Plan Plan:: 1. Enterococcus bacteremia. Enterococcus that is pansensitive to all antibiotics studied. Will discontinue vancomycin and pursue the rest of his antibiotic regimen for 14 days with oral Zyvox. 600 mg p.o. every 12 hours. Encourage probiotics. Repeat blood cultures from last night are pending. Will get a confirmatory set at the end of today as well. 2. Exertional dyspnea. Likely secondary to severe and near critical aortic stenosis. Spoken with the patient regarding his symptoms and the need for close follow-up with cardiology in [place] after being discharged. 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 Continue medical management in the interim with diuretics. Monitor volume status closely. Patient requires additional time in the hospital last 96 hours for confirmatory negative blood cultures, and infectious disease planning. Continue DVT prophylaxis. Patient is ambulating. CODE STATUS: Full code Plan discussed with his and his daughter who are present in the room.
[2021-05-04] MEDS: Saccharomyces Boulardii (Probiotic) 250 MG Cap PO SCH (21:03)
[2021-05-05] MEDS: Acetaminophen 325 MG Tab PO PRN (04:13)
[2021-05-05] MEDS: Apixaban 5 MG Tab PO SCH (08:05)
[2021-05-05] MEDS: Famotidine 20 MG Tab PO SCH (08:05)
[2021-05-05] MEDS: Saccharomyces Boulardii (Probiotic) 250 MG Cap PO SCH (08:05)
[2021-05-05] MEDS: Aspirin 81 MG Tab.EC PO SCH (08:05)
[2021-05-05] MEDS: Lisinopril 20 MG Tab PO SCH (08:05)
[2021-05-05] MEDS: Metoprolol Succinate 50 MG Tab.ER PO SCH (08:05)
[2021-05-05] MEDS: Furosemide 20 MG/2 ML VIAL IVPUSH SCH (08:06)
--- NOTE | 2021-05-05 08:12 | PCM.DCSUM1 ---
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 He does have a loop recorder in place. * Reports the chest pressure is in his anterior chest and is worse with deep inspiration and with lying flat * Denies any hematuria or black or tarry stools. * Was seen in our ED earlier in the day for this chest pain. At that time his chest pain had resolved EKG was obtained showing A. fib at 85 bpm. There is no fever. Labs were grossly normal. Troponin was less than 0.017. CRP was 1.9. Chest x-ray was obtained showing nothing acute. He was ultimately discharged home. * Now reporting rigors and a fever of 102 F. * Twelve-lead EKG is again obtained and shows A. fib at 90 bpm with a PVC but no acute changes. * Labs are obtained: * WBC 11.08. * Hemoglobin 11.3. * Platelet 225,000. * Neutrophils are elevated 71%. There is 10% band neutrophils noted. * 1+ toxic granulation is noted. * D-dimer 0.29. * Sodium 141. * Potassium 4.1. * Chloride 102. * Carbon dioxide 21. * Anion gap 22.1. * BUN is 23. Creatinine 1.3. GFR is 53. * Glucose 102. * Calcium is 8.8. * Total bilirubin is 2.7. * AST is 24, ALT 20, alkaline phosphatase 69. * CK-MB is 0.5. * Troponin is 0.021. * Albumin is 3.5. * Lactic acid is 1.1. * UA is obtained and is negative however 1+ protein, 2+ ketones, 1+ bilirubin are noted. Trace intact blood is also noted. * Influenza a and B are both negative. * SARS Covid 2 RNA is negative. * Blood cultures were obtained. * Patient is started on 2 g Rocephin. He is given IV fluid bolus and started on IV fluids. * SIRS not Sepsis as no end organ dysfunction * Admitted to the medical floor for management of his SIRS with fever of unknown origin. 05/02/2021 Is a 85-year male who was admitted to the floor on 05/01/2021 due to chest pressure, fever, chills, shortness of breath, nausea, and fever. He was started on IV fluids and Rocephin. Blood cultures returned positive for gram-positive cocci in chains and he was switched to IV vancomycin yesterday afternoon. We will repeat blood cultures tomorrow at 1600 after 48 hours of IV vancomycin. We also continue to monitor for blood cultures. Patient does report having had some cuts recently on his arms at work, which have since healed and have no signs of abscess etc. Suspect this is the source of patient's bacteria. CT of the chest abdomen and pelvis was obtained on 05/01/2021 showing small bilateral pleural effusions which are stable from the prior chest CT study. There are also linear densities within both lung bases most likely representing atelectasis. A focal nodular density is noted within the superior segment of the right lower lung measuring 1.6 cm. This is not appreciated on prior exam which could represent small area of pneumonia as well as a small mass. Follow- up is recommended in 3 to 4 months. Other findings are noted which are felt to be stable. Abdomen shows increase stool within the colon and other findings believed to be chronic with nothing acute appreciated. Labs today show a WBC of 7.85. Hemoglobin is 10.0. Platelet is 162,000. Neutrophils are elevated at 85.9%. Sodium is 142. Potassium 3.8. Chloride 110. Carbon dioxide 21. Anion gap is 14.8. BUN is 24. Creatinine 0.9. GFR is greater than 60. Magnesium is 1.8. Total bilirubin is 1.2. Direct bilirubin is 0.30. Indirect bilirubin is 0.9. AST is 39, ALT 20, alkaline phosphatase 81. CRP is 10.6. Protein is 5.9. Albumin 2.8. Procalcitonin returned 0.42 which was obtained yesterday. Echocardiogram obtained on 05/02/2021 shows 1. LVEF, by visual estimation, is 55 to 60%. 2. Basal inferior segment is abnormal as described below. 3. Normal r ight ventricular systolic function. 4. Severe thickening and calcification of the aortic valve leaflets. 5. Visually the aortic valve appears severely stenotic. Gradients likely underestimated. PV 3.02 m/s, MG 18mmHg, BRITTANY 1.06 cm2. Incomplete interrogation. 6. Moderate aortic valve regurgitation. 7. Moderate mitral annular calcification. 8. Moderate mitral valve regurgitation. 9. Mild tricuspid valve regurgitation. 10. The right ventricular systolic pressure is moderate to severely elevated at 64.0 mmHg. 11. There is severe biatrial dilation. He is on 20 mg daily p.o. Lasix and we will add 20 mg IV push Lasix to this as he appears to be somewhat fluid overloaded today with crackles in his lungs and mild shortness of breath. We will increase him to 20 mg IV push Lasix tomorrow and reevaluate for future Lasix dosing. LOS likely 4-5 days pending repeat blood cultures. 05/03/2021 85-year-old male admitted to the floor with SIRS. No obvious cause as chest x- ray and urine looked good. Patient is growing gram-positive cocci in chains now and is bacteremic with 4 out of 4 bottles. Repeat blood cultures will be obtained this afternoon. This will be 48 hours after vancomycin was initiated. Echocardiogram was obtained as noted above with no obvious signs of vegetation. Patient was reportedly hospitalized with endocarditis at [facility] in [facility] in the past. Blood cultures obtained at that time grew out strep mitis/oralis. This would obviously be concerning if patient grew this out again, as we have no obvious cause for his bacteremia. Patient did report that he had cut himself a few times recently and this may be the cause of infection. We will await blood culture results and consider discussion with infectious disease if needed. He did report a history of epigastric pain yesterday and does state that he has had several teas in the past along with endoscopy. He reports that he has some scarring in his esophagus. We will start famotidine as he does have symptoms consistent with GERD. Will increase his Lasix dosing and will continue this for now as patient still appears somewhat fluid overloaded. This was evidenced on his echocardiogram as well. Patient was receiving IV fluids due to his infection and these were stopped yesterday. He remains off oxygen with no pedal edema. Labs today show WBC of 6.30. Hemoglobin is 10.0. Platelet 190,000. Neutrophils are elevated 70.9%. Sodium is 142. Potassium is 3.3 and this will be supplemented. Chloride 107. Carbon oxide 23. Anion gap 15.3. BUN is 25. Creatinine is 1.0. GFR greater than 60. Calcium is 8.2. Magnesium 1.8. Total bilirubin 1.1. CRP is 8.2. Protein 5.7. Albumin 2.8. Length of stay will likely be greater than 96 hours has patient will require repeat blood cultures. 05/04 - Time of discharge 1. Enterococcus bacteremia. Enterococcus Gallinarum (gut bacteria) that is pansensitive to all antibiotics studied. Discontinued IV vancomycin 05/04 and replaced with oral Zyvox 600 mg every 12 hours to complete a total course of 21 days of therapy. Will need close follow-up with PCP within 14 days. Encouraged probiotics. A prescription for oral probiotics has been given at time of discharge. Repeat blood cultures were negative. 2. Exertional dyspnea. Likely secondary to severe and near critical aortic stenosis. Spoken with the patient regarding his symptoms and the need for close follow-up with cardiology in [place] after being discharged. 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 Continue medical management in the interim with diuretics. Monitor volume status closely. Continue DVT prophylaxis. Patient is ambulating. 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 He reports the chest pressure is in his anterior chest and is worse with deep inspiration and with lying flat. Denies any hematuria or black or tarry stools. He was seen in our ED earlier in the day for this chest pain. At that time his chest pain had resolved EKG was obtained showing A. fib at 85 bpm. There is no fever. Labs were grossly normal. Troponin was less than 0.017. CRP was 1.9. Chest x-ray was obtained showing nothing acute. He was ultimately discharged home. On this visit he is reporting rigors and a fever of 102 F. Twelve-lead EKG is again obtained and shows A. fib at 90 bpm with a PVC but no acute changes. Labs are obtained with a leukocytosis of 11.08. Hemoglobin 11.3. Platelet 225,000. Neutrophils are elevated 71%. There is 10% band neutrophils noted. 1+ toxic granulation is noted. D-dimer 0.29. Sodium 141. Potassium 4.1. Chloride 102. Carbon dioxide 21. Anion gap 22.1. BUN is 23. Creatinine 1.3. GFR is 53. Glucose 102. Calcium is 8.8. Total bilirubin is 2.7. AST is 24, ALT 20, alkaline phosphatase 69. CK-MB is 0.5. Troponin is 0.021. Albumin is 3.5. Lactic acid is 1.1. UA is obtained and is negative however 1+ protein, 2+ ketones, 1+ bilirubin are noted. Trace intact blood is also noted. Influenza a and B are both negative. SARS Covid 2 RNA is negative. Blood cultures were obtained. Patient is started on 2 g Rocephin. He is given IV fluid bolus and started on IV fluids. He subsequent admitted to the medical floor for management of his SIRS with fever of unknown origin. He carries a history of A. 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 He does have a loop recorder in place. He is a full code. His PCP is Dr. Godwin. - Related Data Allergies/Adverse Reactions: Allergies Allergy/AdvReac Type Severity Reaction Status Date / Time amoxicillin Allergy Intermediate Rash Verified 05/01/21 00:44 Mgweqyn-Fux-Mjo Reductase Allergy Unknown Cannot Verified 05/01/21 00:44 Inhibitor Remember aspirin AdvReac Intermediate Bleeding Verified 05/01/21 00:44 ceftriaxone AdvReac Cough Verified 05/01/21 16:00 levofloxacin [From Levaquin] AdvReac Leg Cramps Verified 05/01/21 16:00 Home Medications: Home Meds Aspirin [Ecotrin EC] 81 mg PO DAILY 12/14/19 [History] Metoprolol Succinate 50 mg PO DAILY 12/14/19 [History] lisinopriL [Lisinopril] 40 mg PO DAILY 12/14/19 [History] Apixaban [Eliquis] 5 mg PO BID 01/29/21 [History] Ubidecarenone [COQ-10] 30 mg PO DAILY 01/29/21 [History] Nitroglycerin 0.4 mg SL Q5M PRN #1 bottle 02/24/21 [Rx] Furosemide [Lasix] 20 mg PO DAILY 05/01/21 [History] Past Medical History HEENT History: Reports: Hard of Hearing, Impaired Vision Other HEENT History: bilateral hearing aid Cardiovascular History: Reports: Afib, Heart Murmur, High Cholesterol, Hypertension, AK, Stents, Other (See Below) Other Cardiovascular History: reports having had sepsis around the heart. Respiratory History: Reports: None Gastrointestinal History: Reports: GI Bleed Other Gastrointestinal History: Bleeding Ulcers Genitourinary History: Reports: Prostate Disorder Other Genitourinary History: enlarged prostate Musculoskeletal History: Reports: Arthritis, Fracture Neurological History: Reports: CVA Hematologic History: Reports: Anticoagulation Therapy Oncologic (Cancer) History: Reports: Other (See Below) Other Oncologic History: Skin CA Dermatologic History: Reports: Other (See Below) Other Dermatologic History: Skin CA - Infectious Disease History Infectious Disease History: Reports: Chicken Pox, Influenza, Measles - Past Surgical History HEENT Surgical History: Reports: Cataract Surgery Cardiovascular Surgical History: Reports: Coronary Artery Stent Other Cardiovascular Surgeries/Procedures: Loop Recorder GI Surgical History: Reports: Hernia, Inguinal Neurological Surgical History: Reports: Other (See Below) Other Neurological Surgeries/Procedures: 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 Musculoskeletal Surgical History: Reports: Knee Replacement, Other (See Below) Other Musculoskeletal Surgeries/Procedures:: back sx Social & Family History - Family History Family Medical History: No Pertinent Family History - Tobacco Use Tobacco Use Status *Q: Former Tobacco User Used Tobacco, but Quit: Yes Month/Year Tobacco Last Used: - Caffeine Use Caffeine Use: Reports: Coffee - Alcohol Use Number of Drinks Per Day: 2 - Recreational Drug Use Recreational Drug Use: No H&P Review of Systems - Review of Systems: Review Of Systems: See Below General: Reports: Fever, Chills, Malaise, Weakness, Fatigue. Denies: Diaphoresis HEENT: Reports: No Symptoms. Denies: Headaches, Sore Throat Pulmonary: Reports: Pleuritic Chest Pain, Cough, Sputum. Denies: Shortness of Breath, Wheezing Cardiovascular: Reports: Chest Pain, Dyspnea on Exertion. Denies: Palpitations, Orthopnea, Edema, Lightheadedness Gastrointestinal: Reports: Abdominal Pain (Generalized - worse with coughing ), Nausea. Denies: Constipation, Diarrhea, Vomiting Genitourinary: Reports: No Symptoms, Pain Musculoskeletal: Reports: No Symptoms Skin: Reports: No Symptoms. Denies: Cyanosis Psychiatric: Reports: No Symptoms. Denies: Confusion Neurological: Reports: No Symptoms. Denies: Dizziness, Headache, Numbness, Pre- Existing Deficit, Seizure, Syncope, Tingling, Difficulty Walking, Gait Disturbance Hematologic/Lymphatic: Reports: No Symptoms Immunologic: Reports: No Symptoms Exam - Exam Exam: See Below - Vital Signs Vital Signs: Last Vital Signs Temp 98.8 F 05/01/21 06:52 Pulse 89 05/01/21 06:52 Resp 32 H 05/01/21 06:52 BP 163/91 H 05/01/21 06:52 Pulse Ox 94 L 05/01/21 06:52 Weight: 180 lb - Exam Quality Assessment: DVT Prophylaxis. No: Supplemental Oxygen, Urinary Catheter General: Alert, Oriented, Cooperative. No: Mild Distress HEENT: Conjunctiva Clear, Mucosa Moist & [place], Posterior Pharynx Clear Neck: Supple, Trachea Midline Lungs: Normal Respiratory Effort, Decreased Breath Sounds, Crackles (fine at bases ) Cardiovascular: Regular Rate, Irregular Rhythm, Systolic Murmur GI/Abdominal Exam: Normal Bowel Sounds, Soft, Non-Tender, No Distention (Male) Exam: Deferred Rectal (Males) Exam: Deferred Back Exam: Normal Inspection, Full Range of Motion Extremities: Normal Inspection, Normal Range of Motion, Non-Tender, No Pedal Edema, Normal Capillary Refill Peripheral Pulses: 2+: Radial (L), Radial (R) Skin: Warm, Dry, Intact Neurological: Cranial Nerves Intact (Grossly ) Neuro Extensive - Mental Status: Alert, Oriented x3, Normal Mood/Affect - Discharge Data Discharge Date: 05/05/21 Discharge Disposition: Home, Self-Care 01 Condition: Good - Referral to Home Health Primary Care Physician: Juan José Godwin MD - Patient Summary/Data Consults: Consultations 05/01/21 07:34 Consult to Case Management/[employer] Maker [CONS] Routine 05/01/21 07:36 OT Evaluation and Treatment [CONS] Routine PT Evaluation and Treatment [CONS] Routine - Patient Instructions Other/Special Instructions: Activity and diet are as tolerated. Follow-up with PCP within the next 10 to 14 days. Continue taking all medications as listed within this discharge packet including probiotics and antibiotics as prescribed for the next 17 days to complete a total course of 21 days of oral antibiotic therapy. Follow-up with cardiology regarding severe to near critical aortic stenosis. If you experience any signs or symptoms that warranted this admission please do not hesitate to call your primary care physician or present to an emergency department for an immediate evaluation. - Discharge Plan *PRESCRIPTION DRUG MONITORING PROGRAM REVIEWED*: Not Applicable *COPY OF PRESCRIPTION DRUG MONITORING REPORT IN PATIENT JS: Not Applicable Prescriptions/Med Rec: Saccharomyces Boulardii [Florastor] 500 mg PO BID #60 cap Linezolid [Zyvox] 600 mg PO Q12H 17 Days tablet Home Medications: Home Meds Aspirin [Ecotrin EC] 81 mg PO DAILY 12/14/19 [History] Metoprolol Succinate 50 mg PO DAILY 12/14/19 [History] lisinopriL [Lisinopril] 40 mg PO DAILY 12/14/19 [History] Apixaban [Eliquis] 5 mg PO BID 01/29/21 [History] Ubidecarenone [COQ-10] 30 mg PO DAILY 01/29/21 [History] Nitroglycerin 0.4 mg SL Q5M PRN #1 bottle 02/24/21 [Rx] Furosemide [Lasix] 20 mg PO DAILY 05/01/21 [History] Linezolid [Zyvox] 600 mg PO Q12H 17 Days tablet 05/05/21 [Rx] Saccharomyces Boulardii [Florastor] 500 mg PO BID #60 cap 05/05/21 [Rx] Forms: ED Department Discharge Referrals: Juan José Godwin MD [Primary Care Provider] - - Discharge Summary/Plan Comment DC Time >30 min.: Yes - General Info Date of Service: 05/05/21 Admission Dx/Problem (Free Text: Admission Diagnosis/Problem Admission Diagnosis/Problem Sepsis Subjective Update: No acute events overnight. No new nursing concerns. Patient does not endorse any new complaints and is feeling well. - Patient Data Vitals - Most Recent: Last Vital Signs Temp 98.6 F 05/05/21 04:07 Pulse 74 05/05/21 04:07 Resp 16 05/05/21 04:07 BP 139/78 05/05/21 04:07 Pulse Ox 97 05/05/21 04:07 Weight - Most Recent: 181 lb 8 oz I&O - Last 24 hours: Intake & Output 05/04/21 05/05/21 05/05/21 22:59 06:59 14:59 Intake Total 300 1490 Output Total 850 900 Balance -550 590 Lab Results - Last 24 hrs: Laboratory Results - last 24 hr 05/05/21 05/05/21 Range/Units 05:50 05:50 WBC 6.14 (4.23-9.07) K/mm3 RBC 3.85 L (4.63-6.08) M/mm3 Hgb 10.2 L (13.7-17.5) gm/dl Hct 33.5 L (40.1-51.0) % MCV 87.0 (79.0-92.2) fl MCH 26.5 (25.7-32.2) pg MCHC 30.4 L (32.2-35.5) g/dl RDW Std Deviation 42.3 (35.1-43.9) fL Plt Count 239 (163-337) K/mm3 MPV 9.9 (9.4-12.3) fl Neut % (Auto) 69.8 H (34.0-67.9) % Lymph % (Auto) 16.8 L (21.8-53.1) % [place] % (Auto) 10.3 (5.3-12.2) % Eos % (Auto) 2.8 (0.8-7.0) Baso % (Auto) 0.3 (0.1-1.2) % Neut # (Auto) 4.29 (1.78-5.38) K/mm3 Lymph # (Auto) 1.03 L (1.32-3.57) K/mm3 [place] # (Auto) 0.63 (0.30-0.82) K/mm3 Eos # (Auto) 0.17 (0.04-0.54) K/mm3 Baso # (Auto) 0.02 (0.01-0.08) K/mm3 Sodium 141 (136-145) mEq/L Potassium 3.3 L (3.5-5.1) mEq/L Chloride 105 (98-107) mEq/L Carbon Dioxide 25 (21-32) mEq/L Anion Gap 14.3 (5-15) BUN 18 (7-18) mg/dL Creatinine 1.0 (0.7-1.3) mg/dL Est Cr Clr Drug Dosing 54.99 mL/min Estimated GFR (MDRD) > 60 (>60) mL/min BUN/Creatinine Ratio 18.0 (14-18) Glucose 102 H (70-99) mg/dL Calcium 8.8 (8.5-10.1) mg/dL Magnesium 1.8 (1.8-2.4) mg/dL Total Bilirubin 1.3 H (0.2-1.0) mg/dL AST 23 (15-37) U/L ALT 18 (16-63) U/L Alkaline Phosphatase 71 (46-116) U/L C-Reactive Protein 3.8 H* (<1.0) mg/dL Total Protein 6.1 L (6.4-8.2) g/dl Albumin 3.1 L (3.4-5.0) g/dl Globulin 3.0 gm/dL Albumin/Globulin Ratio 1.0 (1-2) MICHAEL Results - Last 24 hrs: Microbiology 05/03/21 16:18 Aerobic Blood Culture - Preliminary Blood - Venous NO GROWTH AFTER 1 DAY Anaerobic Blood Culture - Preliminary NO GROWTH AFTER 1 DAY 05/03/21 16:10 Aerobic Blood Culture - Preliminary Blood - Venous - Lab Draw NO GROWTH AFTER 1 DAY Anaerobic Blood Culture - Preliminary NO GROWTH AFTER 1 DAY 05/01/21 01:55 Aerobic Blood Culture - Final Blood - Venous - Lab Draw Enterococcus Gallinarum Anaerobic Blood Culture - Preliminary Enterococcus Gallinarum 05/01/21 01:45 Aerobic Blood Culture - Final Blood - Venous Enterococcus Gallinarum Anaerobic Blood Culture - Preliminary Enterococcus Gallinarum Med Orders - Current: Current Medications Acetaminophen (Acetaminophen 325 Mg Tab) 650 mg PO Q4H PRN PRN Reason: Pain Last Admin: 05/05/21 04:13 Dose: 650 mg Documented by: Al Hydroxide/Mg Hydroxide (Aluminum Hydroxide/Magnesium Hydroxide/Simethicone Susp 30 Ml Cup) 30 ml PO Q4H PRN PRN Reason: Heartburn Last Admin: 05/02/21 12:47 Dose: 30 ml Documented by: Apixaban (Apixaban 5 Mg Tab) 5 mg PO BID [facility] Last Admin: 05/04/21 21:04 Dose: 5 mg Documented by: Aspirin (Aspirin 81 Mg Tab.Ec) 81 mg PO DAILY [facility] Last Admin: 05/04/21 08:12 Dose: 81 mg Documented by: Docusate Sodium (Docusate Sodium 100 Mg Cap) 100 mg PO DAILY PRN PRN Reason: Constipation Famotidine (Famotidine 20 Mg Tab) 20 mg PO BID [facility] Last Admin: 05/04/21 21:04 Dose: 20 mg Documented by: Furosemide (Furosemide 20 Mg/2 Ml Vial) 20 mg IVPUSH DAILY [facility] Last Admin: 05/04/21 08:09 Dose: 20 mg Documented by: Linezolid (Linezolid 600 Mg Tab) 600 mg PO Q12H [facility] Last Admin: 05/04/21 21:03 Dose: 600 mg Documented by: Lisinopril (Lisinopril 20 Mg Tab) 40 mg PO DAILY [facility] Last Admin: 05/04/21 08:12 Dose: 40 mg Documented by: Magnesium Hydroxide (Magnesium Hydroxide 400 Mg/5 Ml Susp 30 Ml Cup) 30 ml PO Q12H PRN PRN Reason: Constipation Metoprolol Succinate (Metoprolol Succinate 50 Mg Tab.Er) 50 mg PO DAILY [facility] Last Admin: 05/04/21 08:09 Dose: 50 mg Documented by: Nitroglycerin (Nitroglycerin 0.4 Mg Tab.Sl) 0.4 mg SL Q5M PRN PRN Reason: Chest Pain Ondansetron HCl (Ondansetron 4 Mg/2 Ml Sdv) 4 mg IVPUSH Q4H PRN PRN Reason: Nausea Last Admin: 05/01/21 08:25 Dose: 4 mg Documented by: Saccharomyces Boulardii (Saccharomyces Boulardii (Probiotic) 250 Mg Cap) 500 mg PO BID [facility] Last Admin: 05/04/21 21:03 Dose: 500 mg Documented by: Discontinued Medications Ceftriaxone Sodium (Ceftriaxone 2 Gm Advvial) Confirm Administered Dose 2 gm IV .STK-MED ONE Stop: 05/01/21 03:01 Last Admin: 05/01/21 03:04 Dose: Not Given Documented by: Diatrizoate Meglum/Diatrizoate Sod (Diatrizoate Meglumine/Diatrizoate Sodium 37% 120 Ml Bottle) 120 ml PO ONETIME ONE Stop: 05/01/21 09:00 Last Admin: 05/01/21 10:06 Dose: 30 ml Documented by: Furosemide (Furosemide 20 Mg Tab) 20 mg PO DAILY [facility] Last Admin: 05/02/21 08:36 Dose: 20 mg Documented by: Furosemide (Furosemide 40 Mg/4 Ml Vial) 40 mg IVPUSH NOW ONE Stop: 05/02/21 09:53 Furosemide (Furosemide 20 Mg/2 Ml Vial) 20 mg IVPUSH ONETIME ONE Stop: 05/02/21 09:54 Last Admin: 05/02/21 10:02 Dose: 20 mg Documented by: Sodium Chloride (Normal Saline) 1,000 mls @ 250 mls/hr IV ONETIME ONE Stop: 05/01/21 05:10 Last Admin: 05/01/21 01:21 Dose: 250 mls/hr Documented by: Ceftriaxone Sodium 2 gm/ (Sodium Chloride) 100 mls @ 200 mls/hr IV ONETIME ONE Stop: 05/01/21 03:24 Last Admin: 05/01/21 03:03 Dose: 200 mls/hr Documented by: Sodium Chloride (Normal Saline) Confirm Administered Dose 100 mls @ as directed .ROUTE .STK-MED ONE Stop: 05/01/21 03:01 Last Admin: 05/01/21 03:03 Dose: Not Given Documented by: Ceftriaxone Sodium 2 gm/ (Sodium Chloride) 100 mls @ 200 mls/hr IV Q24H [facility] Sodium Chloride (Normal Saline) 1,000 mls @ 150 mls/hr IV ASDIRECTED [facility] Last Admin: 05/02/21 03:46 Dose: 150 mls/hr Documented by: Azithromycin 500 mg/ Sodium (Chloride) 250 mls @ 250 mls/hr IV Q24H [facility] Last Admin: 05/01/21 15:22 Dose: 250 mls/hr Documented by: Vancomycin HCl 1 gm/Vancomycin HCl 500 mg/ Sodium Chloride 500 mls @ 250 mls/hr IV ONETIME ONE Stop: 05/01/21 18:59 Last Admin: 05/01/21 16:37 Dose: 250 mls/hr Documented by: Vancomycin HCl 1 gm/Vancomycin HCl 250 mg/ Sodium Chloride 250 mls @ 166 mls/hr IV Q18H [facility] Last Admin: 05/03/21 23:40 Dose: 166 mls/hr Documented by: Potassium Chloride 10 meq/ (Premix) 100 mls @ 100 mls/hr IV Q1H [facility] Stop: 05/03/21 14:29 Last Admin: 05/03/21 12:48 Dose: Not Given Documented by: Sodium Chloride (Normal Saline) 250 mls @ 50 mls/hr IV ONETIME ONE Stop: 05/03/21 16:14 Last Admin: 05/03/21 11:32 Dose: 50 mls/hr Documented by: Iopamidol (Iopamidol 612 Mg/Ml 100 Ml Bottle) 100 ml IVPUSH ONETIME ONE Stop: 05/01/21 09:00 Last Admin: 05/01/21 10:06 Dose: 100 ml Documented by: Lorazepam (Lorazepam 0.5 Mg Tab) 0.5 mg PO ONETIME ONE Stop: 05/01/21 06:26 Last Admin: 05/01/21 06:32 Dose: 0.5 mg Documented by: Potassium Bicarbonate (Potassium Bicarbonate/Cit Ac 10 Meq Effervescent Tab) 10 meq PO ONETIME ONE Stop: 05/03/21 12:46 Last Admin: 05/03/21 12:47 Dose: 10 meq Documented by: Potassium Chloride (Potassium Chloride 20 Meq Tab.Er) 40 meq PO ONETIME ONE Stop: 05/03/21 07:29 Last Admin: 05/03/21 07:58 Dose: 40 meq Documented by: Sodium Chloride (Sodium Chloride 0.9% 10 Ml Syringe) 10 ml FLUSH ONETIME PRN PRN Reason: IV FLUSH Stop: 05/01/21 12:00 Last Admin: 05/01/21 10:06 Dose: 10 ml Documented by: Vancomycin HCl (Pharmacy To Dose - Vancomycin) 0 dose .XX ASDIRECTED PRN PRN Reason: RX TO DOSE VANCOMYCIN Vancomycin HCl (Vancomycin 500 Mg Sdv) Confirm Administered Dose 500 mg .ROUTE .STK-MED ONE Stop: 05/02/21 09:57 Last Admin: 05/02/21 10:12 Dose: Not Given Documented by: Vancomycin HCl (Vancomycin 1 Gm Sdv) Confirm Administered Dose 1 gm .ROUTE .STK- MED ONE Stop: 05/02/21 09:57 Last Admin: 05/02/21 10:12 Dose: Not Given Documented by: - Exam Quality Assessment: Reports: DVT Prophylaxis General: Reports: Alert, Cooperative, No Acute Distress Lungs: Reports: Clear to Auscultation, Normal Respiratory Effort Cardiovascular: Reports: Regular Rate, Regular Rhythm GI/Abdominal Exam: Normal Bowel Sounds, Soft, Non-Tender Extremities: Normal Inspection, No Pedal Edema Skin: Reports: Warm, Dry Neurological: Reports: No New Focal Deficit
[2021-05-05] MEDS: Linezolid 600 MG Tab PO SCH (08:16)
== END 2021-05-05 08:52 | disposition home or self-care (01) | DRG 872 ==
LOC: JD.ED 00:37 → JD.MS 05:55
PROVIDERS: ADMIT Pediatrics; ATTEND Pediatrics
DX: A41.9 Sepsis, unspecified organism (principal); R50.9 Fever, unspecified; E87.2 Acidosis; H91.93 Unspecified hearing loss, bilateral; E78.00 Pure hypercholesterolemia, unspecified; I48.91 Unspecified atrial fibrillation; E78.5 Hyperlipidemia, unspecified; M19.90 Unspecified osteoarthritis, unspecified site; I10 Essential (primary) hypertension; K21.9 Gastro-esophageal reflux disease without esophagitis; I35.0 Nonrheumatic aortic (valve) stenosis; H54.7 Unspecified visual loss; N40.0 Benign prostatic hyperplasia without lower urinary tract symptoms; B95.2 Enterococcus as the cause of diseases classified elsewhere; Z20.822 Contact with and (suspected) exposure to COVID-19; Z87.11 Personal history of peptic ulcer disease; I25.2 Old myocardial infarction; Z95.5 Presence of coronary angioplasty implant and graft; Z79.01 Long term (current) use of anticoagulants; Z85.828 Personal history of other malignant neoplasm of skin; Z88.1 Allergy status to other antibiotic agents; Z88.6 Allergy status to analgesic agent; Z88.8 Allergy status to other drugs, medicaments and biological substances; Z79.82 Long term (current) use of aspirin; Z79.899 Other long term (current) drug therapy; Z97.4 Presence of external hearing-aid; Z87.891 Personal history of nicotine dependence; Z86.73 Personal history of transient ischemic attack (TIA), and cerebral infarction without residual deficits
CPT/HCPCS: 0240U; 36415; 71260; 74177; 80053; 80202; 81003; 82247; 82248; 82553; 83605; 83735; 84145; 84484; 85007; 85025; 85027; 85379; 86140; 87040; 87077; 87186; 93005; 93306; 94667; 96365; 97116; 97162; 99285; 93010; 99223; 99232; 99233; 99239; 99284; A9270-GY; J0456; J0696; J1940; J2405; J3370; J3480; J7030; J7040; J7050; Q9967

== ENCOUNTER 2021-05-29 08:53 | Emergency (ER) | payer MEDICARE, OTHER ==
--- NOTE | 2021-05-29 09:38 | EDM.PDOC ---
ED HPI GENERAL MEDICAL PROBLEM - General Chief Complaint: Abdominal Pain Stated Complaint: UPPER ABD PAIN Time Seen by Provider: 05/29/21 09:37 Source of Information: Reports: Patient History Limitations: Reports: No Limitations - History of Present Illness INITIAL COMMENTS - FREE TEXT/NARRATIVE: 85-year-old male presents to the ED in the accompaniment of his . Chief complaint is nausea with diffuse upper abdominal pain. He is being investigated for gallbladder disease but apparently had a normal CT of the abdomen with oral and IV and oral contrast at [facility] in [place] 2 weeks ago and a ultrasound of the gallbladder supposedly was done last week here in [facility] and was reportedly negative for stones. I need to obtain those to test for confirmation of this information provided by the . He has not had any vomiting. Had a set up all night though in the easy chair due to pain. Similar type attack 2 weeks ago. Has been having milder attacks for the last several months. He has never had a HIDA scan. Denies any problems with his bowels or bladder function. Known BPH with nocturia usually x2. reports that he is running a low-grade fever of 99 at home the last few days. Intermittent chills. Did have a hot dog for supper last night. Onset: Gradual Onset Date: 05/28/21 Onset Time: 23:00 Duration: Hour(s):, Constant Location: Reports: Abdomen (Epigastric abdominal discomfort with no true radiation along the costal margin. Has chronic mid low back pain no worse than normal. Mild associated heartburn.) Quality: Reports: Ache, Pressure Severity: Moderate Improves with: Reports: None Worsens with: Reports: Other (He states he cannot eat due to) Context: Reports: Other (Recurrent upper abdominal discomfort mostly epigastrium.). Denies: Activity ( the way he is feeling.), Exercise, Lifting, Sick Contact, Trauma Associated Symptoms: Reports: Fever/Chills, Loss of Appetite, Nausea/Vomiting (Questionable low-grade fever and intermittent chills.). 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) Right Upper Abdomen Pain Score (Numeric/FACES): 9 - Related Data Allergies Allergy/AdvReac Type Severity Reaction Status Date / Time amoxicillin Allergy Intermediate Rash Verified 05/29/21 09:00 [id number] Reductase Allergy Unknown Cannot Verified 05/29/21 09:00 Inhibitor Remember aspirin AdvReac Intermediate Bleeding Verified 05/29/21 09:00 ceftriaxone AdvReac Cough Verified 05/29/21 09:00 levofloxacin [From Levaquin] AdvReac Leg Cramps Verified 05/29/21 09:00 Home Meds: Home Meds Aspirin [Ecotrin EC] 81 mg PO DAILY 12/14/19 [History] Metoprolol Succinate 50 mg PO DAILY 12/14/19 [History] lisinopriL [Lisinopril] 40 mg PO DAILY 12/14/19 [History] Apixaban [Eliquis] 5 mg PO BID 01/29/21 [History] Ubidecarenone [COQ-10] 30 mg PO DAILY 01/29/21 [History] Nitroglycerin 0.4 mg SL Q5M PRN #1 bottle 02/24/21 [Rx] Furosemide [Lasix] 20 mg PO DAILY 05/01/21 [History] Linezolid [Zyvox] 600 mg PO Q12H 17 Days tablet 05/05/21 [Rx] Dicyclomine [Bentyl] 20 mg PO Q6H PRN #12 tablet 05/29/21 [Rx] Omeprazole Magnesium [Prilosec Otc] 20 mg PO BEDTIME #42 tablet.dr 05/29/21 [Rx] polyethylene glycoL 3350 [MiraLAX] 17 gm PO DAILY #1 container 05/29/21 [Rx] Past Medical History HEENT History: Reports: Hard of Hearing (Wears bilateral hearing aids.), Impaired Vision Other HEENT History: bilateral hearing aid Cardiovascular History: Reports: Afib, Heart Murmur, High Cholesterol, Hypertension, MD, Stents, Other (See Below) Other Cardiovascular History: reports having had sepsis around the heart. Respiratory History: Reports: None Gastrointestinal History: Reports: GERD, GI Bleed, PUD (Patient has a history of recurrent peptic ulcer disease dating back over 40 years ago. Disease markedly improved when starting Tagamet in the 1970s.) Other Gastrointestinal History: Bleeding Ulcers Genitourinary History: Reports: Prostate Disorder Other Genitourinary History: enlarged prostate Musculoskeletal History: Reports: Arthritis, Fracture Neurological History: Reports: CVA Psychiatric History: Reports: None Endocrine/Metabolic History: Reports: None Hematologic History: Reports: Anticoagulation Therapy Immunologic History: Reports: None Oncologic (Cancer) History: Reports: Other (See Below) Other Oncologic History: Skin CA Dermatologic History: Reports: Other (See Below) Other Dermatologic History: Skin CA - Infectious Disease History Infectious Disease History: Reports: Chicken Pox, Influenza, Measles - Past Surgical History Head Surgeries/Procedures: Reports: None HEENT Surgical History: Reports: Cataract Surgery Cardiovascular Surgical History: Reports: Coronary Artery Stent Other Cardiovascular Surgeries/Procedures: Loop Recorder GI Surgical History: Reports: Hernia, Inguinal (Left.) Male Surgical History: Reports: None Neurological Surgical History: Reports: Other (See Below) Other Neurological Surgeries/Procedures: 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 Musculoskeletal Surgical History: Reports: Knee Replacement, Other (See Below) Other Musculoskeletal Surgeries/Procedures:: back sx Social & Family History - Family History Family Medical History: No Pertinent Family History - Tobacco Use Tobacco Use Status *Q: Never Tobacco User - Caffeine Use Caffeine Use: Reports: Coffee - Recreational Drug Use Recreational Drug Use: No - Living Situation & Occupation Living situation: Reports: Occupation: Retired ED ROS GENERAL - Review of Systems Review Of Systems: See Below Constitutional: Reports: Fever, Chills (Questionable low-grade fever of 99 degrees. Intermittent chills but this has been going on for a long time.), Malaise, Fatigue, Decreased Appetite (He used to weigh 180 now down to 168. Weight loss occurred over the last 6 months), Weight Loss HEENT: Reports: Glasses, Other (Mild hearing impairment.) Respiratory: Denies: Shortness of Breath, Wheezing, Pleuritic Chest Pain, Cough, Sputum Cardiovascular: Reports: Blood Pressure Problem, Dyspnea on Exertion, Lightheadedness. Denies: Chest Pain, Claudication, Edema, Orthopnea Endocrine: Reports: Fatigue (On occasion.) GI/Abdominal: Reports: Abdominal Pain (See history of present illness.), Nausea. Denies: Constipation, Diarrhea, Vomiting : Reports: Frequency, Other (Known BPH. Nocturia times) Musculoskeletal: Reports: Back Pain (Findings mid low back pain degenerative arthritic change) Skin: Reports: No Symptoms Neurological: Reports: Weakness, Other (Labile mood with tearfulness at times.). Denies: Confusion, Dizziness, Headache, Numbness, Syncope, Tingling Psychiatric: Reports: No Symptoms Hematologic/Lymphatic: Reports: No Symptoms Immunologic: Reports: No Symptoms ED EXAM, GI/ABD - Physical Exam Exam: See Below Exam Limited By: No Limitations General Appearance: Alert, WD/WN, No Apparent Distress, Other (Patient prefers to sit upright. Pain is worse with lying down. Vital signs show temperature of 36.6. Heart rate 85 and sinus. Respiratory 16 with O2 sats of 99% room air. BP 160/69.) Eyes: Bilateral: Normal Appearance (No blepharal pallor or scleral icterus.) Throat/Mouth: Normal Inspection, Normal Lips, Normal Oropharynx, Other Head: Atraumatic, Normocephalic (Tongue is mildly dry and coated.) Neck: Normal Inspection, Limited Range of Motion (Pedis on lateral rotation with loss of 5 degrees lateral flexion and rotation.), Tender Lateral (Tender bilateral cervical spine.). No: Carotid Bruit, Lymphadenopathy (L), Lymphadenopathy (R) Respiratory/Chest: No Respiratory Distress, Lungs Clear, Normal Breath Sounds, No Accessory Muscle Use Cardiovascular: Normal Peripheral Pulses, Regular Rate, Rhythm, No Edema, No Gallop, No Murmur, No Rub, Other (Patient has known coronary disease with 1 stent placement.) GI/Abdominal Exam: Normal Bowel Sounds, Soft, No Organomegaly, No Abnormal Bruit, No Mass, Pelvis Stable, Tender (Mild tenderness and positive Max sign right upper quadrant of the abdomen.) (Male) Exam: No Hernia, Other (Previous left inguinal hernia raphe.) Back Exam: Decreased Range of Motion, Paraspinal Tenderness, Other (Mild cough kyphosis thoracic spine.). No: Muscle Spasm Extremities: Normal Inspection (Bar spine.), Normal Range of Motion, Non-Tender, No Pedal Edema Neurological: Alert, Oriented, CN II-XII Intact, Normal Cognition Psychiatric: Normal Affect, Normal Mood Skin Exam: Warm, Dry, Intact, Normal Color, No Rash Course - Vital Signs Last Recorded V/S: Last Vital Signs Temp 36.6 C 05/29/21 09:04 Pulse 85 05/29/21 09:04 Resp 16 05/29/21 09:04 BP 160/69 H 05/29/21 09:04 Pulse Ox 99 05/29/21 09:04 - Orders/Labs/Meds Labs: Laboratory Tests 05/29/21 05/29/21 05/29/21 Range/Units 09:10 09:10 09:10 WBC 5.06 (4.23-9.07) K/mm3 RBC 4.20 L (4.63-6.08) M/mm3 Hgb 10.8 L (13.7-17.5) gm/dl Hct 35.3 L (40.1-51.0) % MCV 84.0 D (79.0-92.2) fl MCH 25.7 (25.7-32.2) pg MCHC 30.6 L (32.2-35.5) g/dl RDW Std Deviation 41.9 (35.1-43.9) fL Plt Count 59 L D (163-337) K/mm3 MPV 12.1 (9.4-12.3) fl Neut % (Auto) 64.3 (34.0-67.9) % Lymph % (Auto) 20.9 L (21.8-53.1) % Jenkins % (Auto) 13.8 H (5.3-12.2) % Eos % (Auto) 0.6 L (0.8-7.0) Baso % (Auto) 0.2 (0.1-1.2) % Neut # (Auto) 3.25 (1.78-5.38) K/mm3 Lymph # (Auto) 1.06 L (1.32-3.57) K/mm3 Jenkins # (Auto) 0.70 (0.30-0.82) K/mm3 Eos # (Auto) 0.03 L (0.04-0.54) K/mm3 Baso # (Auto) 0.01 (0.01-0.08) K/mm3 Manual Slide Review Abnormal smear Sodium 144 (136-145) mEq/L Potassium 3.8 (3.5-5.1) mEq/L Chloride 106 (98-107) mEq/L Carbon Dioxide 27 (21-32) mEq/L Anion Gap 14.8 (5-15) BUN 22 H (7-18) mg/dL Creatinine 1.1 (0.7-1.3) mg/dL Est Cr Clr Drug Dosing 49.99 mL/min Estimated GFR (MDRD) > 60 (>60) mL/min BUN/Creatinine Ratio 20.0 H (14-18) Glucose 110 H (70-99) mg/dL Calcium 9.3 (8.5-10.1) mg/dL Magnesium 1.8 (1.8-2.4) mg/dL Total Bilirubin 1.0 (0.2-1.0) mg/dL GGT 38 (15-85) U/L AST 20 (15-37) U/L ALT 22 (16-63) U/L Alkaline Phosphatase 69 (46-116) U/L Troponin I < 0.017 (0.00-0.056) ng/mL C-Reactive Protein 0.6 (<1.0) mg/dL NT-Pro-B Natriuret Pep 1692 H (0-450) pg/mL Total Protein 7.0 (6.4-8.2) g/dl Albumin 4.0 (3.4-5.0) g/dl Globulin 3.0 gm/dL Albumin/Globulin Ratio 1.3 (1-2) Lipase 205 (73-393) U/L Urine Color (Yellow) Urine Appearance (Clear) Urine pH (5.0-8.0) Ur Specific [place] (1.005-1.030) Urine Protein (Negative) Urine Glucose (UA) (Negative) Urine Ketones (Negative) Urine Occult Blood (Negative) Urine Nitrite (Negative) Urine Bilirubin (Negative) Urine Urobilinogen (0.2-1.0) Ur Leukocyte Esterase (Negative) Urine RBC (0-5) /hpf Urine WBC (0-5) /hpf Ur Epithelial Cells (0-5) /hpf Urine Bacteria (FEW) /hpf Urine Mucus (FEW) /hpf 05/29/21 Range/Units 10:00 WBC (4.23-9.07) K/mm3 RBC (4.63-6.08) M/mm3 Hgb (13.7-17.5) gm/dl Hct (40.1-51.0) % MCV (79.0-92.2) fl MCH (25.7-32.2) pg MCHC (32.2-35.5) g/dl RDW Std Deviation (35.1-43.9) fL Plt Count (163-337) K/mm3 MPV (9.4-12.3) fl Neut % (Auto) (34.0-67.9) % Lymph % (Auto) (21.8-53.1) % Jenkins % (Auto) (5.3-12.2) % Eos % (Auto) (0.8-7.0) Baso % (Auto) (0.1-1.2) % Neut # (Auto) (1.78-5.38) K/mm3 Lymph # (Auto) (1.32-3.57) K/mm3 Jenkins # (Auto) (0.30-0.82) K/mm3 Eos # (Auto) (0.04-0.54) K/mm3 Baso # (Auto) (0.01-0.08) K/mm3 Manual Slide Review Sodium (136-145) mEq/L Potassium (3.5-5.1) mEq/L Chloride (98-107) mEq/L Carbon Dioxide (21-32) mEq/L Anion Gap (5-15) BUN (7-18) mg/dL Creatinine (0.7-1.3) mg/dL Est Cr Clr Drug Dosing mL/min Estimated GFR (MDRD) (>60) mL/min BUN/Creatinine Ratio (14-18) Glucose (70-99) mg/dL Calcium (8.5-10.1) mg/dL Magnesium (1.8-2.4) mg/dL Total Bilirubin (0.2-1.0) mg/dL GGT (15-85) U/L AST (15-37) U/L ALT (16-63) U/L Alkaline Phosphatase (46-116) U/L Troponin I (0.00-0.056) ng/mL C-Reactive Protein (<1.0) mg/dL NT-Pro-B Natriuret Pep (0-450) pg/mL Total Protein (6.4-8.2) g/dl Albumin (3.4-5.0) g/dl Globulin gm/dL Albumin/Globulin Ratio (1-2) Lipase (73-393) U/L Urine Color Yellow (Yellow) Urine Appearance Clear (Clear) Urine pH 7.0 (5.0-8.0) Ur Specific [place] 1.025 (1.005-1.030) Urine Protein Negative (Negative) Urine Glucose (UA) Negative (Negative) Urine Ketones Negative (Negative) Urine Occult Blood Trace-intact H (Negative) Urine Nitrite Negative (Negative) Urine Bilirubin Negative (Negative) Urine Urobilinogen 0.2 (0.2-1.0) Ur Leukocyte Esterase Negative (Negative) Urine RBC 0-5 (0-5) /hpf Urine WBC 0-5 (0-5) /hpf Ur Epithelial Cells 0-5 (0-5) /hpf Urine Bacteria Not seen (FEW) /hpf Urine Mucus Not seen (FEW) /hpf Meds: Medications Discontinued Medications Generic Name Dose Route Start Last Admin Trade Name Dalton PRN Reason Stop Dose Admin Hydromorphone HCl 0.25 mg 05/29/21 09:57 05/29/21 10:05 Hydromorphone 0.5 Mg/0.5 Ml Syringe IVPUSH 05/29/21 09:58 0.25 mg ONETIME ONE Administration Hyoscyamine 0.125 mg 05/29/21 10:04 05/29/21 10:14 Hyoscyamine 0.125 Mg Tab.Sl SL 05/29/21 10:05 0.125 mg ONETIME ONE Administration Dextrose/Sodium Chloride 1,000 mls @ 150 mls/hr 05/29/21 10:00 05/29/21 10:10 Dextrose 5%-Normal Saline IV 150 mls/hr ASDIRECTED [place] Administration Ondansetron HCl 4 mg 05/29/21 09:48 05/29/21 10:03 Ondansetron 4 Mg/2 Ml Sdv IVPUSH 05/29/21 09:49 4 mg ONETIME ONE Administration - Radiology Interpretation Free Text/Narrative:: 85-year-old male presents to the ED for evaluation of diffuse upper abdominal discomfort associate with nausea and loss of appetite. Symptoms started after supper last evening and persisted all night. He has been sitting up in the easy chair to sleep. Did not get much sleep due to pain. Associated nausea this morning. No vomiting. Bowel function has been normal. Being investigated for gallbladder disease. It is thought that he has had a normal CT of the abdomen performed at [facility] in [place] 2 weeks ago and an ultrasound of the gallbladder performed here in [facility] a week ago. We will obtain these 2 reports. Clinically he may have mild gallbladder disease. Afebrile on my examination. Routine labs to be performed to rule out cholecystitis. We will give him Levsin 0.125 mg sublingual. IV will be D5 normal saline at 150 mils per hour. Given Zofran 4 mg IV for nausea relief and Dilaudid 0.25 mg IV for pain relief. - Re-Assessments/Exams Free Text/Narrative Re-Assessment/Exam: 05/29/21 11:17 KUB reveals some increased gas and mild dilatation of the distal small bowel. There is increased stool in the right hemicolon and particular the hepatic flexure. No signs of bowel obstruction. No abnormal calcifications identified. I was able to review CT of the abdomen and ultrasound of the abdomen done within the last 2 weeks at 2 different facilities. Essentially ultrasound of the gallbladder proved to be negative with no signs of gallbladder wall thickening or stones. Mild steatosis of liver appreciated. There is a few AV malformations in the right lobe of the liver. Persistent right-sided hydronephrosis which terminates at the UPJ has been appreciated for the last year and 1/2 to 2 years. Markedly enlarged prostate gland appreciated on CT exam. 05/29/21 11:20 White count is normal at 5.06 showing no signs of infection with a normal neutrophil count of 64%. Hemoglobin is slightly low at 10.8 with hematocrit of 35.3. Platelet count is low at 59,000. Sodium 144 with a potassium of 3.8 chloride 106 with a bicarb of 27. Anion gap is 14.8. BUN is 22 with a creatinine of 1.1. GFR is greater than 60. Glucose is 110. Calcium is 9.3. Magnesium is 1.8. Liver function is normal including a GGT of 38. No sign of biliary tree obstruction. Troponin is less than 0.017. BNP is mildly elevated at 1692. Total protein 7.0 with an albumin fraction of 4.0. Lipase is 205. Urinalysis today shows a trace of occult blood but no signs of any infection. 05/29/21 13:10 patient is feeling better. I think primarily from pain management. He has had recent investigations performed with stool culture and I suspect investigations for H. pylori illness. Multiple investigations done recently do not reveal any signs or symptoms of gallbladder disease. I strongly suspect clinically that he has peptic ulcer disease. He does not use a proton pump inhibitor on a regular basis but takes it as needed. Advised to start Prilosec and take it every night at bedtime for minimum of 6 weeks to heal any duodenitis or peptic ulcer disease. X-ray of the abdomen also reveals increased stool throughout the right hemicolon and hepatic flexure. Advised starting MiraLAX 17 g or 1 scoop and taking a daily basis again for the next month to 6 weeks to see if his pain syndrome is not improved with the above 2 treatments. He has had recent stool cultures done and I presume H. pylori on the stool since he has a history of extensive peptic ulcer disease or recurrent peptic ulcer disease in the 1970s and 80s. He continues to clinically have GERD. At this time I have suggested that no further investigation such as a HIDA scan of his gallbladder be ordered unless he continues to be symptomatic with right upper quadrant pain after eating fatty meal after 6 weeks of treatment for peptic ulcer disease. Patient discharged home in the care of his . Departure - Departure Time of Disposition: 13:11 Disposition: Home, Self-Care 01 Condition: Fair Clinical Impression: Gastroesophageal reflux disease Qualifiers: Esophagitis presence: esophagitis presence not specified Qualified Code(s): K21.9 - Gastro-esophageal reflux disease without esophagitis Abdominal pain Qualifiers: Abdominal location: epigastric Qualified Code(s): R10.13 - Epigastric pain - Discharge Information *PRESCRIPTION DRUG MONITORING PROGRAM REVIEWED*: Not Applicable *COPY OF PRESCRIPTION DRUG MONITORING REPORT IN PATIENT JS: Not Applicable Prescriptions: Dicyclomine [Bentyl] 20 mg PO Q6H PRN #12 tablet PRN Reason: Abdominal cramps/diarrhea polyethylene glycoL 3350 [MiraLAX] 17 gm PO DAILY #1 container Omeprazole Magnesium [Prilosec Otc] 20 mg PO BEDTIME #42 tablet. Instructions: Food Choices for Gastroesophageal Reflux Disease, Adult, Abdominal Pain, Adult, [id number], Gastroesophageal Reflux Disease, Adult, [id number] Referrals: Juan José Godwin MD [Primary Care Provider] - Forms: ED Department Discharge Additional Instructions: Evaluation in the emergency room today in regards to upper abdominal pain right upper quadrant and epigastrium. Awareness of associated intermittent heartburn suggestive of gastroesophageal reflux disease. History of peptic ulcer disease off and on for many years. Recent work-up with CT of the abdomen and ultrasound of the upper abdomen was negative for any signs of gallstones or thickening of the gallbladder wall that would suggest gallbladder disease. It is highly suspect that you likely have a recurrence of ulcer disease in the first part of the small bowel called the duodenum or in the stomach causing current pain syndrome. Lab test done today revealed no signs of an infection in your blood or in the urine. There was no sign of gallbladder illness or biliary tree obstruction. X-ray of the abdomen did show increased stool in the right hemicolon and particularly up in the right upper quadrant of the abdomen right where your gallbladder is. This may be contributing to pain as well. The other finding on CT exam done 2 weeks ago was hydronephrosis or enlargement of the right kidney and ureter down to the bladder. Urology consultation apparently is pending and is important to let the urologist know that there seems to be an obstruction of the lower ureter where it attaches to the bladder. Sometimes this can be from scar tissue or severely enlarged prostate which is evident on the CT scan can also contribute to this problem. It is my suggestion that you take Prilosec 20 mg every night at bedtime for a minimum of the next 6 weeks to heal up any peptic ulcer disease and reduce reflux of acid into the food pipe which often occurs at nighttime during sleep. Suggest MiraLAX powder 17 g or 1 scoop daily which has no taste and can be mixed with any beverage of choice will keep the bowels regular and clean out the right colon. Bentyl tablets 20 mg can be used every 6 hours as needed for relief of upper abdominal pain. They take about an hour to work. Suggest follow-up with Dr. Montaño for results of recent stool test. Stool should be tested for H. pylori infection as it is one of the most common causes of recurrent ulcer disease in the stomach and duodenum. If after 4 to 6 weeks you were continue to have recurrent right upper quadrant abdominal pain intermittently a HIDA scan could be arranged to test your gallbladder function. Sepsis Event Note (ED) - Evaluation Sepsis Screening Result: No Definite Risk - Focused Exam Vital Signs: Vital Signs Temp Pulse Resp BP Pulse Ox 05/29/21 09:04 36.6 C 85 16 160/69 H 99
[2021-05-29] MEDS ORDERED: Ondansetron 4 MG/2 ML SDV IVPUSH ONE (09:48)
[2021-05-29] MEDS ORDERED: HYDROmorphone 0.5 MG/0.5 ML Syringe IVPUSH ONE (09:57)
[2021-05-29] MEDS ORDERED: Dextrose 5%-0.9% NaCl 1,000 ML IV SCH (10:00)
[2021-05-29] MEDS ORDERED: Hyoscyamine 0.125 MG Tab.SL SL ONE (10:04)
--- NOTE | 2021-05-29 10:25 | CR ---
Abdomen: Supine view of the abdomen was obtained. Comparison: Prior CT abdomen and pelvis study of 05/01/21. Bowel gas pattern appears normal. Phleboliths are seen within the pelvis. Mild atherosclerotic calcification is noted. Bony structures show nothing acute. Impression: 1. Incidental findings as noted above. Diagnostic code #2
== END 2021-05-29 13:35 | disposition home or self-care (01) ==
LOC: JD.ED 08:53
DX: K21.9 Gastro-esophageal reflux disease without esophagitis (principal); E78.00 Pure hypercholesterolemia, unspecified; I10 Essential (primary) hypertension; I25.2 Old myocardial infarction; Z79.82 Long term (current) use of aspirin; Z79.01 Long term (current) use of anticoagulants; Z95.5 Presence of coronary angioplasty implant and graft; Z79.899 Other long term (current) drug therapy; Z88.0 Allergy status to penicillin; Z88.1 Allergy status to other antibiotic agents; Z88.8 Allergy status to other drugs, medicaments and biological substances; Z86.73 Personal history of transient ischemic attack (TIA), and cerebral infarction without residual deficits; R06.09 Other forms of dyspnea
CPT/HCPCS: 36415; 74018; 80053; 81001; 82977; 83690; 83735; 83880; 84484; 85025; 86140; 96374; 96375; 99284; A9270; J1170; J2405; J7042

== ENCOUNTER 2021-09-02 13:58 | Emergency (ER) | payer MEDICARE, OTHER ==
--- NOTE | 2021-09-02 15:09 | CR ---
Chest: Frontal view of the chest was obtained. Comparison: Prior chest x-ray of 04/30/21. Heart is enlarged which is more prominent than on previous exam. Lungs are clear with no definite acute parenchymal change. Bony structures show nothing acute. Impression: 1. Slight cardiomegaly. No definite acute intrathoracic process is otherwise seen. Diagnostic code #2
--- NOTE | 2021-09-02 15:43 | EDM.PDOC ---
ED HPI GENERAL MEDICAL PROBLEM - General Chief Complaint: Respiratory Problem Stated Complaint: SOB Time Seen by Provider: 09/02/21 14:45 Source of Information: Reports: Patient History Limitations: Reports: No Limitations - History of Present Illness INITIAL COMMENTS - FREE TEXT/NARRATIVE: Patient is 86-year-old male with a past medical history of CAD status post stents, hypertension, and stroke presenting with a chief complaint of chest pressure. Duration of symptoms several days. Symptoms do not seem to be related to exertion. Patient does report some associated shortness of breath with the symptoms. The chest pressure is across the chest. Patient reports mild dry cough with this. Denies any pain in the neck or shoulder. Otherwise, has no nausea, vomiting, weight loss, lower extremity swelling, calf pain, history of DVT or PE. Patient does note that sublingual nitroglycerin improves symptoms. - Related Data Allergies Allergy/AdvReac Type Severity Reaction Status Date / Time amoxicillin Allergy Intermediate Rash Verified 09/02/21 14:13 Ymaoqxy-DGA-OyH Reductase Allergy Unknown Cannot Verified 09/02/21 14:13 Inhibitor Remember [Ppleuau-Hgl-Sxq Reductase Inhibitor] aspirin AdvReac Intermediate Bleeding Verified 09/02/21 14:13 ceftriaxone AdvReac Cough Verified 09/02/21 14:13 levofloxacin [From Levaquin] AdvReac Leg Cramps Verified 09/02/21 14:13 Home Meds: Home Meds Apixaban [Eliquis] 5 mg PO BID 09/02/21 [History] Aspirin [Aspirin EC] 81 mg PO DAILY 09/02/21 [History] Betamethasone/Clotrimazole [Lotrisone] 1 applic TOP BID PRN 09/02/21 [History] Furosemide [Lasix] 20 mg PO QAM 09/02/21 [History] Metoprolol Succinate 50 mg PO QAM 09/02/21 [History] Ubidecarenone [COQ-10] 30 mg PO QAM 09/02/21 [History] lisinopriL [Lisinopril] 40 mg PO QAM 09/02/21 [History] Past Medical History HEENT History: Reports: Hard of Hearing, Impaired Vision Other HEENT History: bilateral hearing aid Cardiovascular History: Reports: Afib, Heart Murmur, High Cholesterol, Hypertension, [place], Stents, Other (See Below) Other Cardiovascular History: reports having had sepsis around the heart. Respiratory History: Reports: None Gastrointestinal History: Reports: GERD, GI Bleed, PUD Other Gastrointestinal History: Bleeding Ulcers Genitourinary History: Reports: Prostate Disorder Other Genitourinary History: enlarged prostate Musculoskeletal History: Reports: Arthritis, Fracture Neurological History: Reports: CVA Psychiatric History: Reports: None Endocrine/Metabolic History: Reports: None Hematologic History: Reports: Anticoagulation Therapy Immunologic History: Reports: None Oncologic (Cancer) History: Reports: Other (See Below) Other Oncologic History: Skin CA Dermatologic History: Reports: Other (See Below) Other Dermatologic History: Skin CA - Infectious Disease History Infectious Disease History: Reports: Chicken Pox, Influenza, Measles - Past Surgical History Head Surgeries/Procedures: Reports: None HEENT Surgical History: Reports: Cataract Surgery Cardiovascular Surgical History: Reports: Coronary Artery Stent Other Cardiovascular Surgeries/Procedures: Loop Recorder GI Surgical History: Reports: Hernia, Inguinal Male Surgical History: Reports: None Neurological Surgical History: Reports: Other (See Below) Other Neurological Surgeries/Procedures: 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 Musculoskeletal Surgical History: Reports: Knee Replacement, Other (See Below) Other Musculoskeletal Surgeries/Procedures:: back sx Social & Family History - Family History Family Medical History: No Pertinent Family History - Tobacco Use Tobacco Use Status *Q: Former Tobacco User Used Tobacco, but Quit: Yes Month/Year Tobacco Last Used: 60 years ago - Caffeine Use Caffeine Use: Reports: Coffee - Alcohol Use Days Per Week of Alcohol Use: 7 Number of Drinks Per Day: 3 Total Drinks Per Week: 21 - Recreational Drug Use Recreational Drug Use: No - Living Situation & Occupation Living situation: Reports: Occupation: Retired ED ROS GENERAL - Review of Systems Review Of Systems: See Below Free Text/Narrative/Comment: In addition to that documented in the HPI above, the additional ROS was obtained: Constitutional: Denies fevers or chills Eyes: Denies vision changes ENMT: Denies sore throat CV: Per HPI Resp: Per HPI GI: Denies vomiting or diarrhea : Denies painful urination MSK: Denies recent trauma Skin: Denies new rashes Neuro: Denies new numbness or tingling or weakness Endocrine: Denies unexpected weight loss Heme: Denies bleeding disorders ED EXAM, GENERAL - Physical Exam Exam: See Below Free Text/Narrative:: I have reviewed the triage vital signs Const: Well nourished, well developed, appears stated age Eyes: Pupils Equal and reactive to light bilaterally, no conjunctival injection HENT: No signs of trauma or swelling, Neck supple without meningismus CV: Regular Rate Rhythm, Warm, well-perfused extremities RESP: Unlabored respiratory effort GI: No obvious abdominal distention MSK: No gross deformities appreciated Skin: Warm, dry. 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 Sensation and motor function of extremities grossly intact. Psych: Appropriate mood and affect. Course - Vital Signs Last Recorded V/S: Last Vital Signs Temp 36.3 C 09/02/21 14:06 Pulse 77 09/02/21 17:30 Resp 18 09/02/21 17:30 BP 185/85 H 09/02/21 17:30 Pulse Ox 98 09/02/21 17:30 - Orders/Labs/Meds Labs: Laboratory Tests 09/02/21 09/02/21 09/02/21 Range/Units 14:57 14:58 14:58 WBC 8.26 (4.23-9.07) K/mm3 RBC 4.58 L (4.63-6.08) M/mm3 Hgb 10.9 L (13.7-17.5) gm/dl Hct 37.3 L (40.1-51.0) % MCV 81.4 (79.0-92.2) fl MCH 23.8 L (25.7-32.2) pg MCHC 29.2 L (32.2-35.5) g/dl RDW Std Deviation 48.6 H (35.1-43.9) fL Plt Count 285 D (163-337) K/mm3 MPV 10.0 (9.4-12.3) fl Neut % (Auto) 76.0 H (34.0-67.9) % Lymph % (Auto) 15.3 L (21.8-53.1) % [place] % (Auto) 7.3 (5.3-12.2) % Eos % (Auto) 1.1 (0.8-7.0) Baso % (Auto) 0.2 (0.1-1.2) % Neut # (Auto) 6.28 H (1.78-5.38) K/mm3 Lymph # (Auto) 1.26 L (1.32-3.57) K/mm3 [place] # (Auto) 0.60 (0.30-0.82) K/mm3 Eos # (Auto) 0.09 (0.04-0.54) K/mm3 Baso # (Auto) 0.02 (0.01-0.08) K/mm3 PT 11.4 (9.7-12.0) SECONDS INR 1.03 Sodium (136-145) mEq/L Potassium (3.5-5.1) mEq/L Chloride (98-107) mEq/L Carbon Dioxide (21-32) mEq/L Anion Gap (5-15) BUN (7-18) mg/dL Creatinine (0.7-1.3) mg/dL Est Cr Clr Drug Dosing mL/min Estimated GFR (MDRD) (>60) mL/min BUN/Creatinine Ratio (14-18) Glucose (70-99) mg/dL Calcium (8.5-10.1) mg/dL Total Bilirubin (0.2-1.0) mg/dL AST (15-37) U/L ALT (16-63) U/L Alkaline Phosphatase (46-116) U/L Troponin I (0.00-0.056) ng/mL Total Protein (6.4-8.2) g/dl Albumin (3.4-5.0) g/dl Globulin gm/dL Albumin/Globulin Ratio (1-2) SARS-CoV-2 RNA (NAHID) Negative (NEGATIVE) 09/02/21 09/02/21 Range/Units 14:58 17:15 WBC (4.23-9.07) K/mm3 RBC (4.63-6.08) M/mm3 Hgb (13.7-17.5) gm/dl Hct (40.1-51.0) % MCV (79.0-92.2) fl MCH (25.7-32.2) pg MCHC (32.2-35.5) g/dl RDW Std Deviation (35.1-43.9) fL Plt Count (163-337) K/mm3 MPV (9.4-12.3) fl Neut % (Auto) (34.0-67.9) % Lymph % (Auto) (21.8-53.1) % [place] % (Auto) (5.3-12.2) % Eos % (Auto) (0.8-7.0) Baso % (Auto) (0.1-1.2) % Neut # (Auto) (1.78-5.38) K/mm3 Lymph # (Auto) (1.32-3.57) K/mm3 [place] # (Auto) (0.30-0.82) K/mm3 Eos # (Auto) (0.04-0.54) K/mm3 Baso # (Auto) (0.01-0.08) K/mm3 PT (9.7-12.0) SECONDS INR Sodium 142 (136-145) mEq/L Potassium 4.4 (3.5-5.1) mEq/L Chloride 105 (98-107) mEq/L Carbon Dioxide 27 (21-32) mEq/L Anion Gap 14.4 (5-15) BUN 22 H (7-18) mg/dL Creatinine 1.0 (0.7-1.3) mg/dL Est Cr Clr Drug Dosing 55.76 mL/min Estimated GFR (MDRD) > 60 (>60) mL/min BUN/Creatinine Ratio 22.0 H (14-18) Glucose 74 (70-99) mg/dL Calcium 9.2 (8.5-10.1) mg/dL Total Bilirubin 1.7 H (0.2-1.0) mg/dL AST 16 (15-37) U/L ALT 15 L (16-63) U/L Alkaline Phosphatase 81 (46-116) U/L Troponin I < 0.017 < 0.017 (0.00-0.056) ng/mL Total Protein 6.5 (6.4-8.2) g/dl Albumin 3.7 (3.4-5.0) g/dl Globulin 2.8 gm/dL Albumin/Globulin Ratio 1.3 (1-2) SARS-CoV-2 RNA (NAHID) (NEGATIVE) Departure - Departure Time of Disposition: 18:24 Disposition: Home, Self-Care 01 Clinical Impression: Chest pain - Discharge Information Referrals: Marcella Elliott MD [Primary Care Provider] - Forms: ED Department Discharge Additional Instructions: Please increase your metoprolol ER to 75 mg in the morning. Return for worsening of symptoms or any other concerns. 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 Sepsis Event Note (ED) - Evaluation Sepsis Screening Result: No Definite Risk - Focused Exam Vital Signs: Vital Signs Temp Pulse Resp BP Pulse Ox 09/02/21 17:30 77 18 185/85 H 98 09/02/21 14:06 36.3 C 67 20 179/76 H 99 - Assessment/Plan Assessment:: Pt is an 86 yo M with chest pressure. Pt had an unremarkable ER course. Pt symptom free within the ER. Pt had no ischemic changes on the EKG. Serial troponins unremarkable. BP elevated in the ER. No evidence of end organ damage on the lab tests. DDX considered include ACS, PE, Aortic dissection, COVID, pneumonia. ACS ruled out with lab testing. Angina still considered. No major pe risk factors. CXR unremarkable for acute findings. Pt offered observation, but with COVID and all [facility] hospitals not accepting patients we also talked about alternatives using a shared decision making model. 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 All questions addressed and answered, pt agrees with plan of care. Return precautions discussed as usual.
== END 2021-09-02 18:49 | disposition home or self-care (01) ==
LOC: JD.ED 13:58
DX: R07.89 Other chest pain (principal); I25.10 Atherosclerotic heart disease of native coronary artery without angina pectoris; I48.91 Unspecified atrial fibrillation; E78.00 Pure hypercholesterolemia, unspecified; I10 Essential (primary) hypertension; I25.2 Old myocardial infarction; K21.9 Gastro-esophageal reflux disease without esophagitis; Z86.73 Personal history of transient ischemic attack (TIA), and cerebral infarction without residual deficits; Z88.0 Allergy status to penicillin; Z88.1 Allergy status to other antibiotic agents; Z88.8 Allergy status to other drugs, medicaments and biological substances; Z79.01 Long term (current) use of anticoagulants; Z79.899 Other long term (current) drug therapy; Z87.891 Personal history of nicotine dependence; Z20.822 Contact with and (suspected) exposure to COVID-19
CPT/HCPCS: 36415; 71045; 80053; 84484; 85025; 85610; 93005; 99285; U0002

== ENCOUNTER 2021-09-06 09:13 | Emergency (ER) | payer MEDICARE, OTHER ==
[2021-09-06] MEDS ORDERED: Sodium Chloride 0.9% 10 ML Syringe FLUSH PRN (09:57)
--- NOTE | 2021-09-06 10:10 | EDM.PDOC ---
ED HPI GENERAL MEDICAL PROBLEM - General Chief Complaint: Respiratory Problem Stated Complaint: SOB CHEST HEAVY Time Seen by Provider: 09/06/21 09:23 Source of Information: Reports: Patient, Family History Limitations: Reports: No Limitations - History of Present Illness INITIAL COMMENTS - FREE TEXT/NARRATIVE: The patient presents with chest pain, shortness of breath and cough. This all started on Thursday. The chest pain comes and goes. He has a cough and some shortness of breath with it. He has a low grade temp. He has no loss of taste and smell. He has no abdominal pain, nausea or vomiting. He has a history of heart disease and stroke. He was seen here on Thursday and everything checked out. He had COVID test that was negative, CXR and labs. His blood pressure has been elevated since then. He upped his metoprolol. He did not get vaccinated. Onset: Gradual Duration: Week(s): Location: Reports: Chest Quality: Reports: Sharp Severity: Mild Improves with: Reports: None Worsens with: Reports: None Associated Symptoms: Reports: Chest Pain, Cough, Fever/Chills, Shortness of Breath. Denies: Headaches, Nausea/Vomiting Bilateral Chest Pain Score (Numeric/FACES): 2 - Related Data Allergies Allergy/AdvReac Type Severity Reaction Status Date / Time amoxicillin Allergy Intermediate Rash Verified 09/06/21 09:22 Crmnamk-QXQ-BkD Reductase Allergy Unknown Cannot Verified 09/06/21 09:22 Inhibitor Remember [Dhhlbhb-Qjz-Tza Reductase Inhibitor] aspirin AdvReac Intermediate Bleeding Verified 09/06/21 09:22 ceftriaxone AdvReac Cough Verified 09/06/21 09:22 levofloxacin [From Levaquin] AdvReac Leg Cramps Verified 09/06/21 09:22 Home Meds: Home Meds Apixaban [Eliquis] 5 mg PO BID 09/02/21 [History] Aspirin [Aspirin EC] 81 mg PO DAILY 09/02/21 [History] Betamethasone/Clotrimazole [Lotrisone] 1 applic TOP BID PRN 09/02/21 [History] Furosemide [Lasix] 20 mg PO QAM 09/02/21 [History] Metoprolol Succinate 50 mg PO QAM 09/02/21 [History] Ubidecarenone [COQ-10] 30 mg PO QAM 09/02/21 [History] lisinopriL [Lisinopril] 40 mg PO QAM 09/02/21 [History] Azithromycin [Zithromax] 250 mg PO DAILY #6 tab 09/06/21 [Rx] Past Medical History HEENT History: Reports: Hard of Hearing, Impaired Vision Other HEENT History: bilateral hearing aid Cardiovascular History: Reports: Afib, Heart Murmur, High Cholesterol, Hypertension, [place], Stents, Other (See Below) Other Cardiovascular History: reports having had sepsis around the heart. Respiratory History: Reports: None Gastrointestinal History: Reports: GERD, GI Bleed, PUD Other Gastrointestinal History: Bleeding Ulcers Genitourinary History: Reports: Prostate Disorder Other Genitourinary History: enlarged prostate Musculoskeletal History: Reports: Arthritis, Fracture Neurological History: Reports: CVA Psychiatric History: Reports: None Endocrine/Metabolic History: Reports: None Hematologic History: Reports: Anticoagulation Therapy Immunologic History: Reports: None Oncologic (Cancer) History: Reports: Other (See Below) Other Oncologic History: Skin CA Dermatologic History: Reports: Other (See Below) Other Dermatologic History: Skin CA - Infectious Disease History Infectious Disease History: Reports: Chicken Pox, Influenza, Measles - Past Surgical History Head Surgeries/Procedures: Reports: None HEENT Surgical History: Reports: Cataract Surgery Cardiovascular Surgical History: Reports: Coronary Artery Stent Other Cardiovascular Surgeries/Procedures: Loop Recorder GI Surgical History: Reports: Hernia, Inguinal Male Surgical History: Reports: None Neurological Surgical History: Reports: Other (See Below) Other Neurological Surgeries/Procedures: 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 Musculoskeletal Surgical History: Reports: Knee Replacement, Other (See Below) Other Musculoskeletal Surgeries/Procedures:: back sx Social & Family History - Family History Family Medical History: No Pertinent Family History - Tobacco Use Tobacco Use Status *Q: Former Tobacco User Used Tobacco, but Quit: Yes Month/Year Tobacco Last Used: 50 years ago - Caffeine Use Caffeine Use: Reports: Coffee - Alcohol Use Number of Drinks Per Day: 2 - Recreational Drug Use Recreational Drug Use: No - Living Situation & Occupation Living situation: Reports: Occupation: Retired ED ROS GENERAL - Review of Systems Review Of Systems: See Below Constitutional: Reports: Fever HEENT: Reports: No Symptoms Respiratory: Reports: Shortness of Breath, Cough Cardiovascular: Reports: Chest Pain Endocrine: Reports: No Symptoms GI/Abdominal: Reports: No Symptoms : Reports: No Symptoms Musculoskeletal: Reports: No Symptoms ED EXAM, GENERAL - Physical Exam Exam: See Below Exam Limited By: No Limitations General Appearance: Alert, No Apparent Distress Ears: Normal External Exam Nose: Normal Inspection Head: Atraumatic, Normocephalic Neck: Normal Inspection Respiratory/Chest: No Respiratory Distress, Decreased Breath Sounds Cardiovascular: Regular Rate, Rhythm, No Edema, No Murmur GI/Abdominal: Soft, Non-Tender, No Organomegaly, No Mass Back Exam: Normal Inspection Extremities: Normal Inspection #1 Interpretation EKG Date: 09/06/21 Time: 09:36 Rhythm: A-Fib Rate (Beats/Min): 73 [place]: Normal P-Wave: Absent QRS: Normal ST-T: Normal QT: Normal Course - Vital Signs Last Recorded V/S: Last Vital Signs Temp 96.9 F 09/06/21 09:19 Pulse 73 09/06/21 09:19 Resp 20 09/06/21 09:19 BP 185/63 H 09/06/21 09:19 Pulse Ox 98 09/06/21 09:19 - Orders/Labs/Meds Orders: Active Orders 24 hr Category Date Time Status Cardiac Monitoring [RC] . DIRECTED Care 09/06/21 09:57 Active Peripheral IV Care [RC] . DIRECTED Care 09/06/21 09:58 Active Sodium Chloride 0.9% [Saline Flush] Med 09/06/21 09:57 Active 10 ml FLUSH ASDIRECTED PRN Peripheral IV Insertion Adult [OM.PC] Stat Oth 09/06/21 09:57 Ordered Medication Orders Sodium Chloride (Sodium Chloride 0.9% 10 Ml Syringe) 10 ml FLUSH ASDIRECTED PRN PRN Reason: Keep Vein Open Last Admin: 09/06/21 10:31 Dose: 10 ml Documented by: BRANDEN Labs: Laboratory Tests 09/06/21 09/06/21 09/06/21 Range/Units 09:33 10:05 10:05 WBC 7.47 (4.23-9.07) K/mm3 RBC 4.80 (4.63-6.08) M/mm3 Hgb 11.2 L (13.7-17.5) gm/dl Hct 39.0 L (40.1-51.0) % MCV 81.3 (79.0-92.2) fl MCH 23.3 L (25.7-32.2) pg MCHC 28.7 L (32.2-35.5) g/dl RDW Std Deviation 48.8 H (35.1-43.9) fL Plt Count 276 (163-337) K/mm3 MPV 10.1 (9.4-12.3) fl Neut % (Auto) 80.3 H (34.0-67.9) % Lymph % (Auto) 11.9 L (21.8-53.1) % [place] % (Auto) 6.7 (5.3-12.2) % Eos % (Auto) 0.7 L (0.8-7.0) Baso % (Auto) 0.3 (0.1-1.2) % Neut # (Auto) 6.00 H (1.78-5.38) K/mm3 Lymph # (Auto) 0.89 L (1.32-3.57) K/mm3 [place] # (Auto) 0.50 (0.30-0.82) K/mm3 Eos # (Auto) 0.05 (0.04-0.54) K/mm3 Baso # (Auto) 0.02 (0.01-0.08) K/mm3 D-Dimer, Quantitative 0.63 H (0.19-0.50) mg/L Sodium (136-145) mEq/L Potassium (3.5-5.1) mEq/L Chloride (98-107) mEq/L Carbon Dioxide (21-32) mEq/L Anion Gap (5-15) BUN (7-18) mg/dL Creatinine (0.7-1.3) mg/dL Est Cr Clr Drug Dosing mL/min Estimated GFR (MDRD) (>60) mL/min BUN/Creatinine Ratio (14-18) Glucose (70-99) mg/dL Calcium (8.5-10.1) mg/dL Total Bilirubin (0.2-1.0) mg/dL AST (15-37) U/L ALT (16-63) U/L Alkaline Phosphatase (46-116) U/L Troponin I (0.00-0.056) ng/mL C-Reactive Protein (<1.0) mg/dL NT-Pro-B Natriuret Pep (0-450) pg/mL Total Protein (6.4-8.2) g/dl Albumin (3.4-5.0) g/dl Globulin gm/dL Albumin/Globulin Ratio (1-2) Influenza Type A RNA Negative (NEGATIVE) Influenza Type B RNA Negative (NEGATIVE) SARS-CoV-2 RNA (NAHID) Negative (NEGATIVE) 09/06/21 09/06/21 Range/Units 10:05 10:05 WBC (4.23-9.07) K/mm3 RBC (4.63-6.08) M/mm3 Hgb (13.7-17.5) gm/dl Hct (40.1-51.0) % MCV (79.0-92.2) fl MCH (25.7-32.2) pg MCHC (32.2-35.5) g/dl RDW Std Deviation (35.1-43.9) fL Plt Count (163-337) K/mm3 MPV (9.4-12.3) fl Neut % (Auto) (34.0-67.9) % Lymph % (Auto) (21.8-53.1) % [place] % (Auto) (5.3-12.2) % Eos % (Auto) (0.8-7.0) Baso % (Auto) (0.1-1.2) % Neut # (Auto) (1.78-5.38) K/mm3 Lymph # (Auto) (1.32-3.57) K/mm3 [place] # (Auto) (0.30-0.82) K/mm3 Eos # (Auto) (0.04-0.54) K/mm3 Baso # (Auto) (0.01-0.08) K/mm3 D-Dimer, Quantitative (0.19-0.50) mg/L Sodium 145 (136-145) mEq/L Potassium 3.9 (3.5-5.1) mEq/L Chloride 109 H (98-107) mEq/L Carbon Dioxide 23 (21-32) mEq/L Anion Gap 16.9 H (5-15) BUN 27 H (7-18) mg/dL Creatinine 1.0 (0.7-1.3) mg/dL Est Cr Clr Drug Dosing 55.76 mL/min Estimated GFR (MDRD) > 60 (>60) mL/min BUN/Creatinine Ratio 27.0 H (14-18) Glucose 117 H (70-99) mg/dL Calcium 8.7 (8.5-10.1) mg/dL Total Bilirubin 1.2 H (0.2-1.0) mg/dL AST 14 L (15-37) U/L ALT 12 L (16-63) U/L Alkaline Phosphatase 71 (46-116) U/L Troponin I < 0.017 (0.00-0.056) ng/mL C-Reactive Protein 0.4 (<1.0) mg/dL NT-Pro-B Natriuret Pep 965 H (0-450) pg/mL Total Protein 6.4 (6.4-8.2) g/dl Albumin 3.6 (3.4-5.0) g/dl Globulin 2.8 gm/dL Albumin/Globulin Ratio 1.3 (1-2) Influenza Type A RNA (NEGATIVE) Influenza Type B RNA (NEGATIVE) SARS-CoV-2 RNA (NAHID) (NEGATIVE) Meds: Medications Generic Name Dose Route Start Last Admin Trade Name Freq PRN Reason Stop Dose Admin Sodium Chloride 10 ml 09/06/21 09:57 09/06/21 10:31 Sodium Chloride 0.9% 10 Ml Syringe FLUSH 10 ml ASDIRECTED PRN Administration Keep Vein Open - Re-Assessments/Exams Free Text/Narrative Re-Assessment/Exam: 09/06/21 10:10 I ordered an IV saline lock, EKG, CXR, labs and COVID test. 09/06/21 10:12 His EKG shows atrial fibrillation with no acute changes. 09/06/21 12:07 His Hgb is a little low at 11.2. His D-dimer is elevated at 0.63. His troponin is negative. His BNP was elevated at 965. His influenza and COVID are negative again. His CXR show pulmonary vessels slightly increased. Please rule out early CHF. Slight increased density within the right lung base. This may represent more focal pulmonary congestion with atelectasis but difficult to exclude early area of pneumonia. 09/06/21 12:10 I will get him an albuterol inhaler and zithromax. I will also have him take 40mg of lasix daily for 3 days. Departure - Departure Time of Disposition: 12:15 Disposition: Home, Self-Care 01 Condition: Good Clinical Impression: CHF (congestive heart failure) Qualifiers: Heart failure type: other Qualified Code(s): I50.9 - Heart failure, unspecified CHF exacerbation Qualifiers: Heart failure type: unspecified Qualified Code(s): I50.9 - Heart failure, unspecified Pneumonia Qualifiers: Pneumonia type: due to unspecified organism Laterality: right Lung location: lower lobe of lung Qualified Code(s): J18.9 - Pneumonia, unspecified organism - Discharge Information *PRESCRIPTION DRUG MONITORING PROGRAM REVIEWED*: Not Applicable *COPY OF PRESCRIPTION DRUG MONITORING REPORT IN PATIENT JS: Not Applicable Prescriptions: Azithromycin [Zithromax] 250 mg PO DAILY #6 tab Referrals: Juan José Godwin MD [Primary Care Provider] - 1 Week Forms: ED Department Discharge Additional Instructions: Take the zithromax 2 pills on day 1 and 1 pill on day 2 through 5. Take 40mg of your lasix daily for 3 days. Use the inhaler 2 puffs every 6 hours as needed for shortness of breath. Follow up with your doctor within a week. Please return if you are worse. Sepsis Event Note (ED) - Evaluation Sepsis Screening Result: No Definite Risk - Focused Exam Vital Signs: Vital Signs Temp Pulse Resp BP Pulse Ox 09/06/21 09:19 96.9 F 73 20 185/63 H 98 - My Orders Last 24 Hours: My Active Orders 09/06/21 09:57 Cardiac Monitoring [RC] . DIRECTED Sodium Chloride 0.9% [Saline Flush] 10 ml FLUSH ASDIRECTED PRN Peripheral IV Insertion Adult [OM.PC] Stat 09/06/21 09:58 Peripheral IV Care [RC] . DIRECTED - Assessment/Plan Last 24 Hours: My Active Orders 09/06/21 09:57 Cardiac Monitoring [RC] . DIRECTED Sodium Chloride 0.9% [Saline Flush] 10 ml FLUSH ASDIRECTED PRN Peripheral IV Insertion Adult [OM.PC] Stat 09/06/21 09:58 Peripheral IV Care [RC] . DIRECTED
[2021-09-06 10:17] LABS: CORONAVIRUS COVID-19 NAA NEGATIVE (NEGATIVE)
--- NOTE | 2021-09-06 10:45 | CR ---
Chest: Portable view of the chest was obtained. Comparison: Prior chest x-ray of 09/02/21. Heart slightly is prominent. Upper mediastinum is normal. Patchy increased density within the right lung base is seen as an interval change. Mild increased pulmonary vessels are seen particularly on the left side. Difficult to exclude mild pulmonary congestion. No acute bony abnormality is seen. Impression: 1. Pulmonary vessels slightly increased. Please rule out early CHF. 2. Slight increased density within the right lung base. This may represent more focal pulmonary congestion with atelectasis but difficult to exclude early area of pneumonia. Diagnostic code #3
[2021-09-06] MEDS ORDERED: Albuterol 6.7 GM Inhaler INH ONE (12:09)
== END 2021-09-06 12:35 | disposition home or self-care (01) ==
LOC: JD.ED 09:13
DX: J18.9 Pneumonia, unspecified organism (principal); I11.0 Hypertensive heart disease with heart failure; I50.9 Heart failure, unspecified; I48.91 Unspecified atrial fibrillation; I25.2 Old myocardial infarction; M19.90 Unspecified osteoarthritis, unspecified site; R79.1 Abnormal coagulation profile; Z87.891 Personal history of nicotine dependence; Z88.0 Allergy status to penicillin; Z88.8 Allergy status to other drugs, medicaments and biological substances; Z88.1 Allergy status to other antibiotic agents; Z79.82 Long term (current) use of aspirin; Z79.01 Long term (current) use of anticoagulants; Z79.899 Other long term (current) drug therapy; Z20.822 Contact with and (suspected) exposure to COVID-19
CPT/HCPCS: 0240U; 36415; 71045; 80053; 83880; 84484; 85025; 85379; 86140; 93005; 99285; A9270

== ENCOUNTER 2021-11-17 09:17 | Emergency (ER) | payer MEDICARE, OTHER ==
[2021-11-17] MEDS ORDERED: Sodium Chloride 0.9% 10 ML Syringe FLUSH PRN (09:47)
[2021-11-17] MEDS ORDERED: Albuterol/Ipratropium 3.0-0.5 MG/3 ML Neb Soln NEB ONE (09:48)
[2021-11-17] MEDS ORDERED: methylPREDNISolone Sodium Succinate 125 MG/2 ML SDV IVPUSH ONE (09:48)
[2021-11-17 10:27] LABS: CORONAVIRUS COVID-19 NAA NEGATIVE (NEGATIVE)
== END 2021-11-17 11:50 | disposition home or self-care (01) ==
LOC: JD.ED 09:17
DX: J40 Bronchitis, not specified as acute or chronic (principal); I48.91 Unspecified atrial fibrillation; I10 Essential (primary) hypertension; I25.2 Old myocardial infarction; M19.90 Unspecified osteoarthritis, unspecified site; Z79.01 Long term (current) use of anticoagulants; Z88.0 Allergy status to penicillin; Z88.8 Allergy status to other drugs, medicaments and biological substances; Z88.1 Allergy status to other antibiotic agents; Z79.82 Long term (current) use of aspirin; Z79.899 Other long term (current) drug therapy; Z20.822 Contact with and (suspected) exposure to COVID-19
CPT/HCPCS: 0240U; 36415; 71045; 80053; 83880; 84484; 85025; 93005; 94640; 96374; 99285; J2930; 93010; J7620-GY

== ENCOUNTER 2021-12-10 08:45 | Emergency (ER) | payer MEDICARE, OTHER ==
[2021-12-10] MEDS: Aspirin 81 MG Tab.Chew PO ONE (09:42)
[2021-12-10] MEDS: Furosemide 20 MG/2 ML VIAL IVPUSH ONE (09:43)
[2021-12-10] MEDS: Sodium Chloride 0.9% 10 ML Syringe FLUSH PRN (09:43)
[2021-12-10] MEDS: Potassium Chloride 20 MEQ Tab.ER PO ONE (12:02)
[2021-12-10] MEDS: Metoprolol Succinate 25 MG Tab.ER PO ONE (12:59)
== END 2021-12-10 12:47 | disposition home or self-care (01) ==
LOC: JD.ED 08:45
DX: I11.0 Hypertensive heart disease with heart failure (principal); I50.9 Heart failure, unspecified; I48.91 Unspecified atrial fibrillation; E78.00 Pure hypercholesterolemia, unspecified; I25.2 Old myocardial infarction; K21.9 Gastro-esophageal reflux disease without esophagitis; Z72.0 Tobacco use; Z88.0 Allergy status to penicillin; Z88.1 Allergy status to other antibiotic agents; Z88.8 Allergy status to other drugs, medicaments and biological substances; Z79.01 Long term (current) use of anticoagulants; Z79.82 Long term (current) use of aspirin; Z79.899 Other long term (current) drug therapy
CPT/HCPCS: 36415; 71045; 80053; 83735; 83880; 84484; 85025; 85610; 93005; 96374; 99285; A9270; J1940

== ENCOUNTER 2022-03-25 07:57 | Emergency (ER) | payer MEDICARE, OTHER ==
[2022-03-25] MEDS ORDERED: Sodium Chloride 0.9% 10 ML Syringe FLUSH PRN (08:32)
[2022-03-25 09:23] LABS: CORONAVIRUS COVID-19 NAA NEGATIVE (NEGATIVE)
== END 2022-03-25 11:41 | disposition home or self-care (01) ==
LOC: JD.ED 07:57
DX: J40 Bronchitis, not specified as acute or chronic (principal); L03.019 Cellulitis of unspecified finger; I25.2 Old myocardial infarction; I10 Essential (primary) hypertension; Z86.73 Personal history of transient ischemic attack (TIA), and cerebral infarction without residual deficits; Z79.899 Other long term (current) drug therapy; Z79.01 Long term (current) use of anticoagulants; Z79.82 Long term (current) use of aspirin; Z88.0 Allergy status to penicillin; Z88.6 Allergy status to analgesic agent; Z88.1 Allergy status to other antibiotic agents; Z20.822 Contact with and (suspected) exposure to COVID-19
CPT/HCPCS: 0240U; 36415; 71045; 80053; 84484; 85025; 86140; 93005; 99284; J3490

== ENCOUNTER 2022-06-09 11:00 | Emergency (ER) | payer MEDICARE, OTHER ==
[2022-06-09] MEDS ORDERED: Sodium Chloride 0.9% 10 ML Syringe FLUSH PRN (11:24)
== END 2022-06-09 13:20 | disposition home or self-care (01) ==
LOC: JD.ED 11:00
DX: M25.512 Pain in left shoulder (principal); I48.91 Unspecified atrial fibrillation; E78.00 Pure hypercholesterolemia, unspecified; I10 Essential (primary) hypertension; I25.2 Old myocardial infarction; K21.9 Gastro-esophageal reflux disease without esophagitis; M19.90 Unspecified osteoarthritis, unspecified site; Z79.899 Other long term (current) drug therapy; Z79.82 Long term (current) use of aspirin; Z88.1 Allergy status to other antibiotic agents; Z88.6 Allergy status to analgesic agent; Z88.8 Allergy status to other drugs, medicaments and biological substances
CPT/HCPCS: 36415; 71045; 71045-26; 80053; 83735; 83880; 84484; 85025; 85610; 85730; 93005; 93010; 99284

== ENCOUNTER 2022-07-16 13:51 | Emergency (ER) | payer MEDICARE, OTHER ==
[2022-07-16 16:37] LABS: CORONAVIRUS COVID-19 NAA POSITIVE (NEGATIVE)
== END 2022-07-16 19:54 | disposition home or self-care (01) ==
LOC: JD.ED 13:51
DX: R07.9 Chest pain, unspecified (principal); I10 Essential (primary) hypertension; I25.2 Old myocardial infarction; Z88.1 Allergy status to other antibiotic agents; Z88.6 Allergy status to analgesic agent; Z79.01 Long term (current) use of anticoagulants; Z79.899 Other long term (current) drug therapy; Z87.891 Personal history of nicotine dependence; Z20.822 Contact with and (suspected) exposure to COVID-19
CPT/HCPCS: 0241U; 36415; 71045; 71275; 80053; 83880; 84484; 85025; 85610; 93005; 99285; 93010; 99284

== ENCOUNTER 2022-07-18 20:49 | Emergency (ER) | payer MEDICARE, OTHER ==
[2022-07-18] MEDS ORDERED: Ondansetron 4 MG Tab.DIS PO ONE (21:48)
[2022-07-18] MEDS ORDERED: Acetaminophen 325 MG Tab PO ONE (21:49)
[2022-07-18 22:23] LABS: ESTIMATED GFR 49 mL/min (>60)
== END 2022-07-19 00:49 | disposition home or self-care (01) ==
LOC: JD.ED 20:49
DX: U07.1 COVID-19 (principal); I10 Essential (primary) hypertension; I25.2 Old myocardial infarction; Z88.1 Allergy status to other antibiotic agents; Z88.6 Allergy status to analgesic agent; Z79.01 Long term (current) use of anticoagulants; Z79.899 Other long term (current) drug therapy
CPT/HCPCS: 36415; 71045; 80053; 83690; 84484; 85025; 86140; 87651; 93005; 99284; A9270; 93010

== ENCOUNTER 2022-07-29 19:13 | Emergency (ER) | payer MEDICARE, OTHER ==
[2022-07-29] MEDS ORDERED: Sodium Chloride 0.9% 1,000 ML ONE (21:14)
[2022-07-29 22:20] LABS: ESTIMATED GFR 34 mL/min (>60)
== END 2022-07-30 00:30 | disposition home or self-care (01) ==
LOC: JD.ED 19:13
DX: E86.0 Dehydration (principal); D36.7 Benign neoplasm of other specified sites; N28.9 Disorder of kidney and ureter, unspecified; I50.9 Heart failure, unspecified; Z86.16 Personal history of COVID-19; W18.30XA Fall on same level, unspecified, initial encounter
CPT/HCPCS: 36415; 70450; 71045; 80053; 84484; 85025; 85379; 93005; 96360; 99284; J7030

== ENCOUNTER 2023-01-06 09:48 | Emergency (ER) | payer MEDICARE, OTHER ==
[2023-01-06] MEDS ORDERED: Sodium Chloride 0.9% 10 ML Syringe FLUSH PRN (10:23)
== END 2023-01-06 12:43 | disposition home or self-care (01) ==
LOC: JD.ED 09:48
DX: R07.89 Other chest pain (principal); D64.89 Other specified anemias; I48.91 Unspecified atrial fibrillation; I10 Essential (primary) hypertension; I25.2 Old myocardial infarction; Z86.73 Personal history of transient ischemic attack (TIA), and cerebral infarction without residual deficits; Z95.5 Presence of coronary angioplasty implant and graft; Z79.01 Long term (current) use of anticoagulants; Z79.899 Other long term (current) drug therapy; Z88.1 Allergy status to other antibiotic agents; Z88.6 Allergy status to analgesic agent; Z88.8 Allergy status to other drugs, medicaments and biological substances
CPT/HCPCS: 36415; 71045; 80053; 83880; 84484; 85025; 93005; 99285; J3490; 93010; 99284

== ENCOUNTER 2023-01-27 14:33 | Emergency (ER) | payer MEDICARE, OTHER ==
[2023-01-27] MEDS ORDERED: Sodium Chloride 0.9% 1,000 ML IV SCH (15:15)
[2023-01-27 16:15] LABS: CORONAVIRUS COVID-19 NAA NEGATIVE (NEGATIVE)
[2023-01-27] MEDS ORDERED: Sodium Chloride 0.9% 10 ML Syringe FLUSH PRN (16:28)
[2023-01-27] MEDS ORDERED: Pantoprazole 40 MG Vial IVPUSH ONE (17:48)
== END 2023-01-27 18:15 | disposition home or self-care (01) ==
LOC: JD.ED 14:33
DX: R42 Dizziness and giddiness (principal); K92.1 Melena; D64.89 Other specified anemias; I10 Essential (primary) hypertension; I48.91 Unspecified atrial fibrillation; Z86.73 Personal history of transient ischemic attack (TIA), and cerebral infarction without residual deficits; Z88.0 Allergy status to penicillin; Z88.1 Allergy status to other antibiotic agents; Z88.8 Allergy status to other drugs, medicaments and biological substances; Z79.01 Long term (current) use of anticoagulants; Z20.822 Contact with and (suspected) exposure to COVID-19
CPT/HCPCS: 0241U; 36415; 72170; 80053; 85025; 85610; 93005; 96361; 96374; 99284; C9113; J3490; J7030; 93010

== ENCOUNTER 2023-06-11 14:02 | Emergency (ER) | payer MEDICARE, OTHER ==
[2023-06-11 15:15] LABS: BASOPHILS ABSOLUTE AUTO 0.02 K/mm3 (0.01-0.08); BASOPHILS PERCENT AUTO 0.4 % (0.1-1.2); EOSINOPHILS ABSOLUTE AUTO 0.11 K/mm3 (0.04-0.54); EOSINOPHILS PERCENT AUTO 2.1 (0.8-7.0); HEMATOCRIT 38.1 % (40.1-51.0); HEMOGLOBIN 11.9 gm/dl (13.7-17.5); LYMPHOCYTES PERCENT AUTO 25.1 % (21.8-53.1); MEAN CORPUSCULAR HEMOGLOBIN 26.9 pg (25.7-32.2); MEAN CORPUSCULAR HGB CONC 31.2 g/dl (32.2-35.5); MEAN PLATELET VOLUME 9.2 fl (9.4-12.3); MONOCYTES ABSOLUTE AUTO 0.68 K/mm3 (0.30-0.82); MONOCYTES PERCENT AUTO 13.2 % (5.3-12.2); NEUTROPHILS ABSOLUTE AUTO 3.06 K/mm3 (1.78-5.38); NEUTROPHILS PERCENT AUTO 59.2 % (34.0-67.9); PLATELET COUNT,PLT 251 K/mm3 (163-337); RED BLOOD CELL COUNT 4.43 M/mm3 (4.63-6.08); WHITE BLOOD CELL COUNT,WBC 5.17 K/mm3 (4.23-9.07)
[2023-06-11 15:35] LABS: ALBUMIN 3.5 g/dl (3.4-5.0); ANION GAP 13.7 (5-15); BILIRUBIN TOTAL 2.4 mg/dL (0.2-1.0); BUN/CREATININE RATIO 11.5 (14-18); C-REACTIVE PROTEIN 0.9 mg/dL (<1.0); CREATININE 1.3 mg/dL (0.7-1.3); EST CRCL DRUG DOSING (CG) 40.03 mL/min; POTASSIUM,K 3.7 mEq/L (3.5-5.1); PROTEIN TOTAL,TP 6.9 g/dl (6.4-8.2)
== END 2023-06-11 17:25 | disposition home or self-care (01) ==
LOC: JD.ED 14:02
DX: S83.92XA Sprain of unspecified site of left knee, initial encounter (principal); I48.91 Unspecified atrial fibrillation; I10 Essential (primary) hypertension; I25.2 Old myocardial infarction; Z96.652 Presence of left artificial knee joint; Z88.0 Allergy status to penicillin; Z88.8 Allergy status to other drugs, medicaments and biological substances; Z88.1 Allergy status to other antibiotic agents; Z79.899 Other long term (current) drug therapy
CPT/HCPCS: 36415; 73564-26-LT; 73564-LT; 80053; 85025; 85652; 86140; 99282; 99283

== ENCOUNTER 2023-08-10 07:14 | Emergency (ER) | payer MEDICARE, OTHER ==
[2023-08-10] MEDS ORDERED: Sodium Chloride 0.9% 10 ML Syringe FLUSH PRN (07:36)
[2023-08-10] MEDS ORDERED: Aspirin 81 MG Tab.Chew PO ONE (07:37)
[2023-08-10] MEDS ORDERED: Nitroglycerin/D5W 25 MG/250 ML BOTTLE IV SCH (07:45)
[2023-08-10 07:48] LABS: BASOPHILS PERCENT AUTO 0.3 % (0.0-1.0); EOSINOPHILS PERCENT AUTO 0.4 % (0.0-6.0); HEMATOCRIT 35.4 % (42.0-52.0); HEMOGLOBIN 11.3 gm/dl (14.0-18.0); IMMATURE GRAN ABSOLUTE AUTO 0.02 K/mm3 (0.00-0.05); IMMATURE GRAN PERCENT AUTO 0.3 % (0.0-0.4); LYMPHOCYTES ABSOLUTE AUTO 0.9 K/mm3 (1.0-4.8); LYMPHOCYTES PERCENT AUTO 13.4 % (24.0-44.0); MEAN CORPUSCULAR HEMOGLOBIN 27.6 pg (28.0-32.0); MEAN CORPUSCULAR HGB CONC 31.9 g/dl (32.0-36.0); MEAN CORPUSCULAR VOLUME 86.6 fl (83.0-99.0); MEAN PLATELET VOLUME 9.8 fl (9.4-12.4); MONOCYTES ABSOLUTE AUTO 0.5 K/mm3 (0.0-0.8); MONOCYTES PERCENT AUTO 7.8 % (0.0-8.0); NEUTROPHILS ABSOLUTE AUTO 5.4 K/mm3 (1.8-7.7); NEUTROPHILS PERCENT AUTO 77.8 % (41.0-71.0); PLATELET COUNT,PLT 228 K/mm3 (150-400); RED BLOOD CELL COUNT 4.09 M/mm3 (4.52-5.90); WHITE BLOOD CELL COUNT,WBC 6.95 K/mm3 (3.9-11.3)
[2023-08-10 07:54] LABS: INR 1.45; PROTHROMBIN TIME 15.1 SECONDS (9.7-12.0)
[2023-08-10 07:56] LABS: PTT,PARTIAL THROMBOPLSTIN TIME 37.4 SECONDS (21.7-31.4)
[2023-08-10 07:57] LABS: ALBUMIN 3.6 g/dl (3.4-5.0); ANION GAP 15.5 (5-15); BILIRUBIN TOTAL 1.8 mg/dL (0.2-1.0); BUN/CREATININE RATIO 13.3 (14-18); CALCIUM 8.7 mg/dL (8.5-10.1); CREATININE 1.2 mg/dL (0.7-1.3); EST CRCL DRUG DOSING (CG) 43.37 mL/min; POTASSIUM,K 3.5 mEq/L (3.5-5.1); PROTEIN TOTAL,TP 7.2 g/dl (6.4-8.2)
[2023-08-10 08:28] LABS: C-REACTIVE PROTEIN 0.8 mg/dL (<1.0); MAGNESIUM 1.5 mg/dL (1.8-2.4)
[2023-08-10] MEDS ORDERED: Furosemide 20 MG/2 ML VIAL IVPUSH ONE (09:54)
[2023-08-10 10:58] LABS: CORONAVIRUS COVID-19 NAA NEGATIVE (NEGATIVE); INFLUENZA A NAA NEGATIVE (NEGATIVE); RESPIRATORY SYNCYTIAL VIR NAA NEGATIVE (NEGATIVE)
[2023-08-10 11:03] LABS: APPEARANCE,URINE CLEAR (Clear); BILIRUBIN,URINE NEGATIVE (Negative); COLOR,URINE YELLOW (Yellow); GLUCOSE,URINE NEGATIVE (Negative); KETONES,URINE NEGATIVE (Negative); LEUKOCYTE ESTERASE,URINE NEGATIVE (Negative); NITRITE,URINE NEGATIVE (Negative); OCCULT BLOOD,URINE TRACE-INTACT (Negative); PH,URINE 7.5 (5.0-8.0); PROTEIN,URINE 2+ (Negative); UROBILINOGEN,URINE 0.2 (0.2-1.0)
[2023-08-10 11:21] LABS: BACTERIA,URINE RARE /hpf (FEW); MUCUS,URINE NOT SEEN /hpf (FEW); RBC,URINE 0-5 /hpf (0-5); SQUAMOUS EPITHELIAL CELLS,UR 0-5 /hpf (0-5); WBC,URINE 0-5 /hpf (0-5)
== END 2023-08-10 12:08 | disposition home or self-care (01) ==
LOC: JD.ED 07:14
DX: R07.89 Other chest pain (principal); M79.2 Neuralgia and neuritis, unspecified; I10 Essential (primary) hypertension; I48.91 Unspecified atrial fibrillation; K21.9 Gastro-esophageal reflux disease without esophagitis; I25.2 Old myocardial infarction; Z88.0 Allergy status to penicillin; Z88.8 Allergy status to other drugs, medicaments and biological substances; Z88.1 Allergy status to other antibiotic agents; Z20.822 Contact with and (suspected) exposure to COVID-19
CPT/HCPCS: 0241U; 36415; 71045; 80053; 81001; 83735; 83880; 84484; 85025; 85610; 85730; 86140; 93005; 96365; 96366; 96375; 99285; A9270; J1940; J3490; 93010; 99284

== ENCOUNTER 2024-02-10 00:41 | Emergency (ER) | payer MEDICARE, OTHER ==
[2024-02-10 01:11] LABS: BASOPHILS PERCENT AUTO 0.3 % (0.0-1.0); EOSINOPHILS ABSOLUTE AUTO 0.1 K/mm3 (0.0-0.4); EOSINOPHILS PERCENT AUTO 0.7 % (0.0-6.0); HEMATOCRIT 30.2 % (42.0-52.0); HEMOGLOBIN 9.3 gm/dl (14.0-18.0); IMMATURE GRAN ABSOLUTE AUTO 0.02 K/mm3 (0.00-0.05); IMMATURE GRAN PERCENT AUTO 0.2 % (0.0-0.4); LYMPHOCYTES ABSOLUTE AUTO 0.8 K/mm3 (1.0-4.8); MEAN CORPUSCULAR HEMOGLOBIN 23.9 pg (28.0-32.0); MEAN CORPUSCULAR HGB CONC 30.8 g/dl (32.0-36.0); MEAN CORPUSCULAR VOLUME 77.6 fl (83.0-99.0); MEAN PLATELET VOLUME 9.9 fl (9.4-12.4); NEUTROPHILS PERCENT AUTO 80.8 % (41.0-71.0); PLATELET COUNT,PLT 225 K/mm3 (150-400); RED BLOOD CELL COUNT 3.89 M/mm3 (4.52-5.90)
[2024-02-10 01:45] LABS: A/G RATIO 1.1 (1-2); ALBUMIN 3.5 g/dl (3.4-5.0); ANION GAP 15.5 (5-15); BILIRUBIN TOTAL 1.4 mg/dL (0.2-1.0); BUN/CREATININE RATIO 15.5 (14-18); CREATININE 1.1 mg/dL (0.7-1.3); EST CRCL DRUG DOSING (CG) 48.85 mL/min; POTASSIUM,K 3.5 mEq/L (3.5-5.1); PROTEIN TOTAL,TP 6.6 g/dl (6.4-8.2)
[2024-02-10] MEDS: Acetaminophen/HYDROcodone 325-5 MG Tab PO ONE (02:05)
[2024-02-10] MEDS: Furosemide 20 MG/2 ML VIAL IVPUSH ONE (02:05)
== END 2024-02-10 04:24 | disposition home or self-care (01) ==
LOC: JD.ED 00:41
DX: M25.511 Pain in right shoulder (principal); R07.89 Other chest pain; I10 Essential (primary) hypertension; E78.00 Pure hypercholesterolemia, unspecified; I48.91 Unspecified atrial fibrillation; I25.2 Old myocardial infarction; Z95.5 Presence of coronary angioplasty implant and graft; K21.9 Gastro-esophageal reflux disease without esophagitis; Z86.73 Personal history of transient ischemic attack (TIA), and cerebral infarction without residual deficits; Z88.0 Allergy status to penicillin; Z88.6 Allergy status to analgesic agent; Z88.1 Allergy status to other antibiotic agents; Z88.8 Allergy status to other drugs, medicaments and biological substances; Z79.899 Other long term (current) drug therapy; Z79.01 Long term (current) use of anticoagulants
CPT/HCPCS: 36415; 71045; 80053; 83690; 83880; 84484; 85025; 85379; 93005; 96374; 99285; A9270; J1940

== ENCOUNTER 2024-03-14 08:12 | Emergency (ER) | payer MEDICARE, OTHER ==
[2024-03-14] MEDS ORDERED: Sodium Chloride 0.9% 10 ML Syringe FLUSH PRN (08:43)
[2024-03-14 10:05] LABS: BASOPHILS PERCENT AUTO 0.4 % (0.0-1.0); EOSINOPHILS ABSOLUTE AUTO 0.1 K/mm3 (0.0-0.4); EOSINOPHILS PERCENT AUTO 1.7 % (0.0-6.0); HEMATOCRIT 28.8 % (42.0-52.0); HEMOGLOBIN 8.8 gm/dl (14.0-18.0); IMMATURE GRAN ABSOLUTE AUTO 0.02 K/mm3 (0.00-0.05); IMMATURE GRAN PERCENT AUTO 0.3 % (0.0-0.4); LYMPHOCYTES PERCENT AUTO 13.7 % (24.0-44.0); MEAN CORPUSCULAR HEMOGLOBIN 22.9 pg (28.0-32.0); MEAN CORPUSCULAR HGB CONC 30.6 g/dl (32.0-36.0); MEAN CORPUSCULAR VOLUME 74.8 fl (83.0-99.0); MEAN PLATELET VOLUME 9.8 fl (9.4-12.4); MONOCYTES ABSOLUTE AUTO 0.5 K/mm3 (0.0-0.8); MONOCYTES PERCENT AUTO 7.5 % (0.0-8.0); NEUTROPHILS ABSOLUTE AUTO 5.4 K/mm3 (1.8-7.7); NEUTROPHILS PERCENT AUTO 76.4 % (41.0-71.0); PLATELET COUNT,PLT 222 K/mm3 (150-400); RED BLOOD CELL COUNT 3.85 M/mm3 (4.52-5.90); WHITE BLOOD CELL COUNT,WBC 7.07 K/mm3 (3.9-11.3)
[2024-03-14 10:18] LABS: A/G RATIO 1.1 (1-2); ALBUMIN 3.6 g/dl (3.4-5.0); ANION GAP 16.4 (5-15); BILIRUBIN TOTAL 1.1 mg/dL (0.2-1.0); BUN/CREATININE RATIO 18.3 (14-18); C-REACTIVE PROTEIN 0.81 mg/dL (<0.30); CALCIUM 9.1 mg/dL (8.5-10.1); CREATININE 1.2 mg/dL (0.7-1.3); EST CRCL DRUG DOSING (CG) 43.37 mL/min; POTASSIUM,K 4.4 mEq/L (3.5-5.1)
== END 2024-03-14 12:12 | disposition home or self-care (01) ==
LOC: JD.ED 08:12
DX: I11.0 Hypertensive heart disease with heart failure (principal); I50.9 Heart failure, unspecified; K21.9 Gastro-esophageal reflux disease without esophagitis; D64.89 Other specified anemias; I48.91 Unspecified atrial fibrillation; E78.00 Pure hypercholesterolemia, unspecified; I25.2 Old myocardial infarction; Z88.0 Allergy status to penicillin; Z88.6 Allergy status to analgesic agent; Z88.1 Allergy status to other antibiotic agents; Z88.8 Allergy status to other drugs, medicaments and biological substances; Z79.899 Other long term (current) drug therapy; Z79.01 Long term (current) use of anticoagulants; Z95.5 Presence of coronary angioplasty implant and graft; Z86.73 Personal history of transient ischemic attack (TIA), and cerebral infarction without residual deficits; Z86.16 Personal history of COVID-19
CPT/HCPCS: 36415; 71046; 71046-26; 80053; 83880; 84484; 85025; 86140; 93005; 99284; 99285

== ENCOUNTER 2024-12-06 16:50 | Emergency (ER) | payer MEDICARE, OTHER ==
[2024-12-06] MEDS: Albuterol/Ipratropium 3.0-0.5 MG/3 ML Neb Soln NEB ONE (17:53)
[2024-12-06 18:13] LABS: BASOPHILS PERCENT AUTO 0.2 % (0.0-1.0); EOSINOPHILS ABSOLUTE AUTO 0.2 K/mm3 (0.0-0.4); EOSINOPHILS PERCENT AUTO 5.4 % (0.0-6.0); HEMATOCRIT 40.5 % (42.0-52.0); IMMATURE GRAN ABSOLUTE AUTO 0.01 K/mm3 (0.00-0.05); IMMATURE GRAN PERCENT AUTO 0.2 % (0.0-0.4); LYMPHOCYTES ABSOLUTE AUTO 0.9 K/mm3 (1.0-4.8); LYMPHOCYTES PERCENT AUTO 20.9 % (24.0-44.0); MEAN CORPUSCULAR HEMOGLOBIN 31.3 pg (28.0-32.0); MEAN CORPUSCULAR HGB CONC 32.3 g/dl (32.0-36.0); MEAN CORPUSCULAR VOLUME 96.9 fl (83.0-99.0); MEAN PLATELET VOLUME 9.8 fl (9.4-12.4); MONOCYTES ABSOLUTE AUTO 0.4 K/mm3 (0.0-0.8); MONOCYTES PERCENT AUTO 9.2 % (0.0-8.0); NEUTROPHILS ABSOLUTE AUTO 2.7 K/mm3 (1.8-7.7); NEUTROPHILS PERCENT AUTO 64.1 % (41.0-71.0); PLATELET COUNT,PLT 173 K/mm3 (150-400); RED BLOOD CELL COUNT 4.18 M/mm3 (4.52-5.90); WHITE BLOOD CELL COUNT,WBC 4.25 K/mm3 (3.9-11.3)
[2024-12-06 18:22] LABS: HEMOGLOBIN 13.1 gm/dl (14.0-18.0)
[2024-12-06 18:34] LABS: A/G RATIO 1.1 (1-2); ALBUMIN 3.5 g/dl (3.4-5.0); ANION GAP 13.8 (5-15); BILIRUBIN TOTAL 1.5 mg/dL (0.2-1.0); BUN/CREATININE RATIO 13.6 (14-18); C-REACTIVE PROTEIN 1.52 mg/dL (<0.30); CALCIUM 8.9 mg/dL (8.5-10.1); CREATININE 1.1 mg/dL (0.7-1.3); EST CRCL DRUG DOSING (CG) 46.42 mL/min; POTASSIUM,K 3.8 mEq/L (3.5-5.1); PROTEIN TOTAL,TP 6.8 g/dl (6.4-8.2)
[2024-12-06] MEDS: LORazepam 0.5 MG Tab PO ONE (19:35)
[2024-12-06] MEDS: Furosemide 40 MG/4 ML VIAL IVPUSH ONE (19:36)
[2024-12-06] MEDS ORDERED: Acetaminophen 325 MG Tab PO ONE (21:13)
== END 2024-12-06 21:22 | disposition home or self-care (01) ==
LOC: JD.ED 16:50
DX: I11.0 Hypertensive heart disease with heart failure (principal); I50.9 Heart failure, unspecified; R05.9 Cough, unspecified; R06.2 Wheezing; I48.91 Unspecified atrial fibrillation; I25.2 Old myocardial infarction; Z86.73 Personal history of transient ischemic attack (TIA), and cerebral infarction without residual deficits; Z86.16 Personal history of COVID-19; Z96.659 Presence of unspecified artificial knee joint; Z88.0 Allergy status to penicillin; Z88.6 Allergy status to analgesic agent; Z88.8 Allergy status to other drugs, medicaments and biological substances; Z79.01 Long term (current) use of anticoagulants; Z79.899 Other long term (current) drug therapy
CPT/HCPCS: 36415; 71045; 80053; 83605; 83880; 85025; 86140; 87428; 93005; 94640; 96374; 99285; A9270; J1940; 93010; J7620-GY

== ENCOUNTER 2024-12-07 19:37 | Emergency (ER) | payer MEDICARE, OTHER ==
[2024-12-07] MEDS: methylPREDNISolone Sodium Succinate 125 MG/2 ML SDV IVPUSH ONE (20:30)
[2024-12-07] MEDS: Sodium Chloride 0.9% 10 ML Syringe FLUSH PRN (20:31)
[2024-12-07 20:37] LABS: BASOPHILS PERCENT AUTO 0.2 % (0.0-1.0); EOSINOPHILS ABSOLUTE AUTO 0.2 K/mm3 (0.0-0.4); EOSINOPHILS PERCENT AUTO 5.2 % (0.0-6.0); HEMATOCRIT 41.5 % (42.0-52.0); HEMOGLOBIN 13.6 gm/dl (14.0-18.0); IMMATURE GRAN ABSOLUTE AUTO 0.01 K/mm3 (0.00-0.05); IMMATURE GRAN PERCENT AUTO 0.2 % (0.0-0.4); LYMPHOCYTES ABSOLUTE AUTO 0.8 K/mm3 (1.0-4.8); LYMPHOCYTES PERCENT AUTO 18.4 % (24.0-44.0); MEAN CORPUSCULAR HEMOGLOBIN 31.1 pg (28.0-32.0); MEAN CORPUSCULAR HGB CONC 32.8 g/dl (32.0-36.0); MEAN PLATELET VOLUME 9.8 fl (9.4-12.4); MONOCYTES ABSOLUTE AUTO 0.4 K/mm3 (0.0-0.8); NEUTROPHILS ABSOLUTE AUTO 2.9 K/mm3 (1.8-7.7); PLATELET COUNT,PLT 176 K/mm3 (150-400); RED BLOOD CELL COUNT 4.37 M/mm3 (4.52-5.90)
[2024-12-07] MEDS: Albuterol/Ipratropium 3.0-0.5 MG/3 ML Neb Soln NEB SCH (20:45)
[2024-12-07 21:05] LABS: ALBUMIN 3.7 g/dl (3.4-5.0); ANION GAP 18.8 (5-15); BILIRUBIN TOTAL 1.8 mg/dL (0.2-1.0); BUN/CREATININE RATIO 13.6 (14-18); CALCIUM 9.4 mg/dL (8.5-10.1); CREATININE 1.4 mg/dL (0.7-1.3); EST CRCL DRUG DOSING (CG) 36.47 mL/min; POTASSIUM,K 3.8 mEq/L (3.5-5.1); PROTEIN TOTAL,TP 7.3 g/dl (6.4-8.2)
[2024-12-07 21:19] LABS: CORONAVIRUS COVID-19 NAA NEGATIVE (NEGATIVE); INFLUENZA A NAA NEGATIVE (NEGATIVE); RESPIRATORY SYNCYTIAL VIR NAA POSITIVE (NEGATIVE)
[2024-12-07] MEDS: Doxycycline Monohydrate 100 MG Cap PO ONE (21:51)
== END 2024-12-07 22:01 | disposition home or self-care (01) ==
LOC: JD.ED 19:37
DX: J12.1 Respiratory syncytial virus pneumonia (principal); I48.91 Unspecified atrial fibrillation; I25.2 Old myocardial infarction; I11.0 Hypertensive heart disease with heart failure; I50.9 Heart failure, unspecified; Z86.73 Personal history of transient ischemic attack (TIA), and cerebral infarction without residual deficits; Z88.6 Allergy status to analgesic agent; Z88.8 Allergy status to other drugs, medicaments and biological substances; Z79.01 Long term (current) use of anticoagulants; Z79.51 Long term (current) use of inhaled steroids; Z79.899 Other long term (current) drug therapy; Z95.5 Presence of coronary angioplasty implant and graft
CPT/HCPCS: 0241U; 36415; 71045; 80053; 83880; 85025; 93005; 94640; 96374; 99285; A9270; J2919; J7620-GY

== ENCOUNTER 2024-12-18 16:35 | Emergency (ER) | payer MEDICARE, OTHER ==
[2024-12-18 16:54] LABS: BASOPHILS PERCENT AUTO 0.1 % (0.0-1.0); EOSINOPHILS ABSOLUTE AUTO 0.2 K/mm3 (0.0-0.4); EOSINOPHILS PERCENT AUTO 2.2 % (0.0-6.0); HEMATOCRIT 40.7 % (42.0-52.0); HEMOGLOBIN 13.5 gm/dl (14.0-18.0); IMMATURE GRAN ABSOLUTE AUTO 0.03 K/mm3 (0.00-0.05); IMMATURE GRAN PERCENT AUTO 0.3 % (0.0-0.4); LYMPHOCYTES PERCENT AUTO 21.8 % (24.0-44.0); MEAN CORPUSCULAR HEMOGLOBIN 30.9 pg (28.0-32.0); MEAN CORPUSCULAR HGB CONC 33.2 g/dl (32.0-36.0); MEAN CORPUSCULAR VOLUME 93.1 fl (83.0-99.0); MEAN PLATELET VOLUME 9.5 fl (9.4-12.4); MONOCYTES PERCENT AUTO 11.1 % (0.0-8.0); NEUTROPHILS ABSOLUTE AUTO 5.9 K/mm3 (1.8-7.7); NEUTROPHILS PERCENT AUTO 64.5 % (41.0-71.0); PLATELET COUNT,PLT 305 K/mm3 (150-400); RED BLOOD CELL COUNT 4.37 M/mm3 (4.52-5.90); WHITE BLOOD CELL COUNT,WBC 9.13 K/mm3 (3.9-11.3)
[2024-12-18 17:18] LABS: INR 1.43; PROTHROMBIN TIME 14.8 SECONDS (9.7-12.0)
[2024-12-18 17:20] LABS: PTT,PARTIAL THROMBOPLSTIN TIME 32.9 SECONDS (21.7-31.4)
[2024-12-18 17:29] LABS: A/G RATIO 0.9 (1-2); ALBUMIN 3.2 g/dl (3.4-5.0); ANION GAP 13.2 (5-15); BILIRUBIN TOTAL 1.7 mg/dL (0.2-1.0); BUN/CREATININE RATIO 17.8 (14-18); CREATININE 1.8 mg/dL (0.7-1.3); EST CRCL DRUG DOSING (CG) 28.37 mL/min; MAGNESIUM 2.3 mg/dL (1.8-2.4); POTASSIUM,K 4.2 mEq/L (3.5-5.1); PROTEIN TOTAL,TP 6.6 g/dl (6.4-8.2)
[2024-12-18] MEDS: Alum Hydrox/Mag Hydrox/Simeth 30 ML, Lidocaine 2% 15 ML PO ONE (19:12)
== END 2024-12-18 19:23 | disposition home or self-care (01) ==
LOC: JD.ED 16:35
DX: J98.11 Atelectasis (principal); I48.91 Unspecified atrial fibrillation; E78.00 Pure hypercholesterolemia, unspecified; I10 Essential (primary) hypertension; I25.2 Old myocardial infarction; Z88.0 Allergy status to penicillin; Z88.6 Allergy status to analgesic agent; Z88.1 Allergy status to other antibiotic agents; Z88.8 Allergy status to other drugs, medicaments and biological substances; Z79.01 Long term (current) use of anticoagulants; Z79.899 Other long term (current) drug therapy; Z95.5 Presence of coronary angioplasty implant and graft; Z86.73 Personal history of transient ischemic attack (TIA), and cerebral infarction without residual deficits
CPT/HCPCS: 36415; 71045; 80053; 83735; 83880; 84484; 85025; 85610; 85730; 93005; 99285; A9270

== ENCOUNTER 2025-01-28 21:59 | Emergency (ER) | payer MEDICARE, OTHER ==
[2025-01-28 22:30] LABS: APPEARANCE,URINE TURBID (Clear); BILIRUBIN,URINE 3+ (Negative); COLOR,URINE RED (Yellow); GLUCOSE,URINE NEGATIVE (Negative); KETONES,URINE 1+ (Negative); LEUKOCYTE ESTERASE,URINE 3+ (Negative); NITRITE,URINE NEGATIVE (Negative); OCCULT BLOOD,URINE 3+ (Negative); PROTEIN,URINE 3+ (Negative)
[2025-01-28 22:41] LABS: BASOPHILS PERCENT AUTO 0.3 % (0.0-1.0); EOSINOPHILS ABSOLUTE AUTO 0.1 K/mm3 (0.0-0.4); EOSINOPHILS PERCENT AUTO 1.3 % (0.0-6.0); HEMATOCRIT 30.6 % (42.0-52.0); HEMOGLOBIN 9.7 gm/dl (14.0-18.0); IMMATURE GRAN ABSOLUTE AUTO 0.02 K/mm3 (0.00-0.05); IMMATURE GRAN PERCENT AUTO 0.3 % (0.0-0.4); LYMPHOCYTES ABSOLUTE AUTO 1.2 K/mm3 (1.0-4.8); LYMPHOCYTES PERCENT AUTO 17.8 % (24.0-44.0); MEAN CORPUSCULAR HGB CONC 31.7 g/dl (32.0-36.0); MEAN CORPUSCULAR VOLUME 91.3 fl (83.0-99.0); MEAN PLATELET VOLUME 9.6 fl (9.4-12.4); MONOCYTES ABSOLUTE AUTO 0.7 K/mm3 (0.0-0.8); MONOCYTES PERCENT AUTO 10.8 % (0.0-8.0); NEUTROPHILS ABSOLUTE AUTO 4.7 K/mm3 (1.8-7.7); NEUTROPHILS PERCENT AUTO 69.5 % (41.0-71.0); PLATELET COUNT,PLT 196 K/mm3 (150-400); RED BLOOD CELL COUNT 3.35 M/mm3 (4.52-5.90); WHITE BLOOD CELL COUNT,WBC 6.69 K/mm3 (3.9-11.3)
[2025-01-28 22:42] LABS: RBC,URINE TOO NUMEROUS TO CNT /hpf (0-5); WBC,URINE >100 /hpf (0-5)
[2025-01-28 22:43] LABS: BACTERIA,URINE FEW /hpf (FEW); EPITHELIAL CELLS,URINE 0-5 /hpf (0-5); HYALINE CASTS,URINE 40-50 /lpf (0-5); MUCUS,URINE NOT SEEN /hpf (FEW)
[2025-01-28 22:59] LABS: INR 1.9; PROTHROMBIN TIME 19.3 SECONDS (9.7-12.0)
[2025-01-28 23:03] LABS: A/G RATIO 0.9 (1-2); ANION GAP 15.2 (5-15); BILIRUBIN TOTAL 0.9 mg/dL (0.2-1.0); BUN/CREATININE RATIO 11.3 (14-18); CREATININE 2.3 mg/dL (0.7-1.3); EST CRCL DRUG DOSING (CG) 20.76 mL/min; POTASSIUM,K 3.2 mEq/L (3.5-5.1); PROTEIN TOTAL,TP 6.3 g/dl (6.4-8.2)
[2025-01-28] MEDS: cefTRIAXone 1 GM, Lidocaine 1% 2.1 ML IM ONE (23:28)
== END 2025-01-28 23:37 | disposition home or self-care (01) ==
LOC: JD.ED 21:59
DX: N39.0 Urinary tract infection, site not specified (principal); I10 Essential (primary) hypertension; I48.91 Unspecified atrial fibrillation; I25.2 Old myocardial infarction; M19.90 Unspecified osteoarthritis, unspecified site; Z88.8 Allergy status to other drugs, medicaments and biological substances; Z88.1 Allergy status to other antibiotic agents; Z88.6 Allergy status to analgesic agent; Z79.899 Other long term (current) drug therapy; Z79.01 Long term (current) use of anticoagulants
CPT/HCPCS: 36415; 80053; 81001; 85025; 85610; 96372; 99284; J0696; J2003; 99283

== ENCOUNTER 2025-01-29 10:27 | Emergency (ER) | payer MEDICARE, OTHER ==
[2025-01-29 11:11] LABS: BASOPHILS PERCENT AUTO 0.2 % (0.0-1.0); HEMATOCRIT 30.6 % (42.0-52.0); HEMOGLOBIN 9.8 gm/dl (14.0-18.0); IMMATURE GRAN ABSOLUTE AUTO 0.02 K/mm3 (0.00-0.05); IMMATURE GRAN PERCENT AUTO 0.2 % (0.0-0.4); LYMPHOCYTES PERCENT AUTO 10.5 % (24.0-44.0); MEAN CORPUSCULAR HEMOGLOBIN 28.7 pg (28.0-32.0); MEAN CORPUSCULAR VOLUME 89.7 fl (83.0-99.0); MEAN PLATELET VOLUME 10.1 fl (9.4-12.4); MONOCYTES PERCENT AUTO 10.6 % (0.0-8.0); NEUTROPHILS ABSOLUTE AUTO 7.1 K/mm3 (1.8-7.7); NEUTROPHILS PERCENT AUTO 78.5 % (41.0-71.0); PLATELET COUNT,PLT 212 K/mm3 (150-400); RED BLOOD CELL COUNT 3.41 M/mm3 (4.52-5.90); WHITE BLOOD CELL COUNT,WBC 9.11 K/mm3 (3.9-11.3)
[2025-01-29] MEDS: Sodium Chloride 0.9% 1,000 ML IV STA (11:29)
[2025-01-29 11:30] LABS: A/G RATIO 0.9 (1-2); ALBUMIN 3.1 g/dl (3.4-5.0); ANION GAP 14.8 (5-15); BILIRUBIN TOTAL 1.3 mg/dL (0.2-1.0); BUN/CREATININE RATIO 14.2 (14-18); CALCIUM 8.8 mg/dL (8.5-10.1); CREATININE 1.9 mg/dL (0.7-1.3); EST CRCL DRUG DOSING (CG) 26.87 mL/min; POTASSIUM,K 3.8 mEq/L (3.5-5.1); PROTEIN TOTAL,TP 6.6 g/dl (6.4-8.2)
[2025-01-29] MEDS: Sodium Chloride 0.9% 10 ML Syringe FLUSH PRN (11:30)
[2025-01-29 12:34] LABS: APPEARANCE,URINE SLT CLOUDY (Clear); BILIRUBIN,URINE NEGATIVE (Negative); COLOR,URINE RED (Yellow); GLUCOSE,URINE NEGATIVE (Negative); KETONES,URINE NEGATIVE (Negative); LEUKOCYTE ESTERASE,URINE TRACE (Negative); NITRITE,URINE NEGATIVE (Negative); OCCULT BLOOD,URINE 3+ (Negative); PROTEIN,URINE 2+ (Negative); UROBILINOGEN,URINE 0.2 (0.2-1.0)
[2025-01-29 12:47] LABS: RBC,URINE TOO NUMEROUS TO CNT /hpf (0-5)
[2025-01-29 12:48] LABS: BACTERIA,URINE FEW /hpf (FEW); EPITHELIAL CELLS,URINE 0-5 /hpf (0-5); MUCUS,URINE FEW /hpf (FEW)
[2025-01-29] MEDS: Ertapenem 1 GM in Sodium Chloride 0.9% 50 ML IV ONE (13:35)
[2025-01-29] MEDS: Acetaminophen 325 MG Tab PO ONE (13:37)
[2025-01-29] MEDS: Sodium Chloride 0.9% 1,000 ML IV SCH (15:03)
== END 2025-01-29 15:15 ==
LOC: JD.ED 10:27
DX: N39.0 Urinary tract infection, site not specified (principal); N13.5 Crossing vessel and stricture of ureter without hydronephrosis; I10 Essential (primary) hypertension; I48.91 Unspecified atrial fibrillation; I25.2 Old myocardial infarction; M19.90 Unspecified osteoarthritis, unspecified site; Z79.01 Long term (current) use of anticoagulants; Z88.1 Allergy status to other antibiotic agents; Z88.8 Allergy status to other drugs, medicaments and biological substances; Z79.899 Other long term (current) drug therapy
CPT/HCPCS: 36415; 51798; 74176; 80053; 81001; 83605; 83690; 85025; 87040; 87086; 87154; 96361; 96365; 99285; A9270; J1335; J3490; J7030

== ENCOUNTER 2025-04-28 11:25 | Emergency (ER) | payer MEDICARE, OTHER ==
[2025-04-28] MEDS ORDERED: Sodium Chloride 0.9% 10 ML Syringe FLUSH PRN (11:43)
[2025-04-28 12:11] LABS: BASOPHILS ABSOLUTE AUTO 0.0 K/mm3 (0.0-0.2); BASOPHILS PERCENT AUTO 0.4 % (0.0-1.0); EOSINOPHILS ABSOLUTE AUTO 0.1 K/mm3 (0.0-0.4); EOSINOPHILS PERCENT AUTO 2.3 % (0.0-6.0); IMMATURE GRAN ABSOLUTE AUTO 0.01 K/mm3 (0.00-0.05); IMMATURE GRAN PERCENT AUTO 0.2 % (0.0-0.4); LYMPHOCYTES ABSOLUTE AUTO 1.2 K/mm3 (1.0-4.8); LYMPHOCYTES PERCENT AUTO 22.0 % (24.0-44.0); MEAN PLATELET VOLUME 9.9 fl (9.4-12.4); MONOCYTES ABSOLUTE AUTO 0.4 K/mm3 (0.0-0.8); MONOCYTES PERCENT AUTO 8.1 % (0.0-8.0); NEUTROPHILS ABSOLUTE AUTO 3.5 K/mm3 (1.8-7.7); NEUTROPHILS PERCENT AUTO 67.0 % (41.0-71.0); NRBC ABSOLUTE 0.00 (0.00-0.02); NRBC PERCENT 0.0 % (0.0-0.2); RED BLOOD CELL COUNT 3.67 M/mm3 (4.52-5.90); WHITE BLOOD CELL COUNT,WBC 5.28 K/mm3 (3.9-11.3)
[2025-04-28 12:12] LABS: PLATELET COUNT,PLT 239 K/mm3 (150-400)
[2025-04-28] MEDS: Nitroglycerin 0.4 MG Tab.SL SL PRN (12:40)
[2025-04-28 12:41] LABS: A/G RATIO 1.1 (1-2); ALANINE AMINOTRANSFERASE,ALT 16.0 U/L (16-63); ASPARTATE AMNIOTRANSFERASE,AST 16.0 U/L (15-37); BILIRUBIN TOTAL 0.8 mg/dL (0.2-1.0); BLOOD UREA NITROGEN,BUN 22.0 mg/dL (7-18); CARBON DIOXIDE,CO2 26.0 mEq/L (21-32); CHLORIDE,CL 105.0 mEq/L (98-107); CREATININE 1.2 mg/dL (0.7-1.3); EST CRCL DRUG DOSING (CG) 42.55 mL/min; ESTIMATED GFR 58.0 mL/min (>60); GLUCOSE RANDOM 105.0 mg/dL (70-99); POTASSIUM,K 4.0 mEq/L (3.5-5.1); PROTEIN TOTAL,TP 6.4 g/dl (6.4-8.2); SODIUM,NA 138.0 mEq/L (136-145); TROPONIN I HIGH SENSITIVITY 17.0 pg/mL (<=76)
== END 2025-04-28 15:50 | disposition home or self-care (01) ==
LOC: JD.ED 11:25
DX: R07.89 Other chest pain (principal); I10 Essential (primary) hypertension; I25.2 Old myocardial infarction; I48.91 Unspecified atrial fibrillation; K21.9 Gastro-esophageal reflux disease without esophagitis; Z86.16 Personal history of COVID-19; Z95.5 Presence of coronary angioplasty implant and graft; Z79.899 Other long term (current) drug therapy; Z79.01 Long term (current) use of anticoagulants; Z88.8 Allergy status to other drugs, medicaments and biological substances; Z88.5 Allergy status to narcotic agent; Z88.1 Allergy status to other antibiotic agents; Z88.0 Allergy status to penicillin; Z86.73 Personal history of transient ischemic attack (TIA), and cerebral infarction without residual deficits
CPT/HCPCS: 36415; 71046; 80053; 83880; 84484; 85025; 93005; 99285; A9270; 93010; 99284

== ENCOUNTER 2025-05-05 05:22 | Emergency (ER) | payer MEDICARE, OTHER ==
[2025-05-05 06:12] LABS: BASOPHILS ABSOLUTE AUTO 0.0 K/mm3 (0.0-0.2); BASOPHILS PERCENT AUTO 0.2 % (0.0-1.0); EOSINOPHILS ABSOLUTE AUTO 0.1 K/mm3 (0.0-0.4); EOSINOPHILS PERCENT AUTO 0.9 % (0.0-6.0); IMMATURE GRAN ABSOLUTE AUTO 0.02 K/mm3 (0.00-0.05); IMMATURE GRAN PERCENT AUTO 0.2 % (0.0-0.4); LYMPHOCYTES ABSOLUTE AUTO 1.2 K/mm3 (1.0-4.8); LYMPHOCYTES PERCENT AUTO 11.5 % (24.0-44.0); MEAN PLATELET VOLUME 10.2 fl (9.4-12.4); MONOCYTES ABSOLUTE AUTO 0.6 K/mm3 (0.0-0.8); MONOCYTES PERCENT AUTO 6.3 % (0.0-8.0); NEUTROPHILS ABSOLUTE AUTO 8.2 K/mm3 (1.8-7.7); NEUTROPHILS PERCENT AUTO 80.9 % (41.0-71.0); NRBC ABSOLUTE 0.00 (0.00-0.02); NRBC PERCENT 0.0 % (0.0-0.2); PLATELET COUNT,PLT 292 K/mm3 (150-400); RED BLOOD CELL COUNT 3.34 M/mm3 (4.52-5.90); WHITE BLOOD CELL COUNT,WBC 10.11 K/mm3 (3.9-11.3)
[2025-05-05 06:20] LABS: INR 1.71
[2025-05-05 06:22] LABS: PTT,PARTIAL THROMBOPLSTIN TIME 42.1 SECONDS (21.7-31.4)
[2025-05-05 06:26] LABS: A/G RATIO 1.1 (1-2); ALANINE AMINOTRANSFERASE,ALT 12.0 U/L (16-63); ASPARTATE AMNIOTRANSFERASE,AST 17.0 U/L (15-37); BILIRUBIN TOTAL 0.7 mg/dL (0.2-1.0); BLOOD UREA NITROGEN,BUN 28.0 mg/dL (7-18); CARBON DIOXIDE,CO2 23.0 mEq/L (21-32); CHLORIDE,CL 106.0 mEq/L (98-107); CREATININE 1.3 mg/dL (0.7-1.3); EST CRCL DRUG DOSING (CG) 43.11 mL/min; ESTIMATED GFR 53.0 mL/min (>60); GLUCOSE RANDOM 116.0 mg/dL (70-99); POTASSIUM,K 4.0 mEq/L (3.5-5.1); PROTEIN TOTAL,TP 6.8 g/dl (6.4-8.2); SODIUM,NA 142.0 mEq/L (136-145); TROPONIN I HIGH SENSITIVITY 17.0 pg/mL (<=76)
[2025-05-05] MEDS: Iopamidol 755 Mg/ML 100 ML Bottle IVPUSH ONE (06:53)
[2025-05-05 08:22] LABS: APPEARANCE,URINE CLOUDY (Clear); GLUCOSE,URINE NEGATIVE (Negative); OCCULT BLOOD,URINE 3+ (Negative)
[2025-05-05 08:51] LABS: EPITHELIAL CELLS,URINE 0-5 /hpf (0-5)
[2025-05-05] MEDS: cefTRIAXone 1 GM, Lidocaine 1% 2.1 ML IM STA (09:53)
[2025-05-05] MEDS: Sodium Chloride 0.9% 10 ML Syringe FLUSH PRN (10:03)
== END 2025-05-05 10:48 | disposition hospice, inpatient (51) ==
LOC: JD.ED 05:22
DX: K92.2 Gastrointestinal hemorrhage, unspecified (principal); I25.10 Atherosclerotic heart disease of native coronary artery without angina pectoris; D64.89 Other specified anemias; N39.0 Urinary tract infection, site not specified; Z79.01 Long term (current) use of anticoagulants; I10 Essential (primary) hypertension; Z88.0 Allergy status to penicillin; Z88.1 Allergy status to other antibiotic agents; Z88.8 Allergy status to other drugs, medicaments and biological substances; Z79.899 Other long term (current) drug therapy; Z86.16 Personal history of COVID-19
CPT/HCPCS: 36415; 74178; 80053; 81001; 83690; 83735; 84484; 85025; 85610; 85730; 86850; 86900; 86901; 87086; 93005; 96365; 96366; 96375; 99285; J0696; J2470; J7030; Q9967; 87088; 87186

== ENCOUNTER 2025-05-29 13:38 | Emergency (ER) | payer MEDICARE, OTHER ==
[2025-05-29 14:35] LABS: BASOPHILS ABSOLUTE AUTO 0.0 K/mm3 (0.0-0.2); BASOPHILS PERCENT AUTO 0.2 % (0.0-1.0); EOSINOPHILS ABSOLUTE AUTO 0.1 K/mm3 (0.0-0.4); EOSINOPHILS PERCENT AUTO 0.8 % (0.0-6.0); IMMATURE GRAN ABSOLUTE AUTO 0.02 K/mm3 (0.00-0.05); IMMATURE GRAN PERCENT AUTO 0.2 % (0.0-0.4); LYMPHOCYTES ABSOLUTE AUTO 0.8 K/mm3 (1.0-4.8); LYMPHOCYTES PERCENT AUTO 9.5 % (24.0-44.0); MEAN PLATELET VOLUME 9.9 fl (9.4-12.4); MONOCYTES ABSOLUTE AUTO 0.6 K/mm3 (0.0-0.8); MONOCYTES PERCENT AUTO 6.4 % (0.0-8.0); NEUTROPHILS ABSOLUTE AUTO 7.1 K/mm3 (1.8-7.7); NEUTROPHILS PERCENT AUTO 82.9 % (41.0-71.0); NRBC ABSOLUTE 0.00 (0.00-0.02); NRBC PERCENT 0.0 % (0.0-0.2); PLATELET COUNT,PLT 234 K/mm3 (150-400); RED BLOOD CELL COUNT 3.98 M/mm3 (4.52-5.90); WHITE BLOOD CELL COUNT,WBC 8.55 K/mm3 (3.9-11.3)
[2025-05-29 14:54] LABS: A/G RATIO 1.2 (1-2); ALANINE AMINOTRANSFERASE,ALT 17.0 U/L (16-63); ASPARTATE AMNIOTRANSFERASE,AST 22.0 U/L (15-37); BILIRUBIN TOTAL 1.8 mg/dL (0.2-1.0); BLOOD UREA NITROGEN,BUN 14.0 mg/dL (7-18); CARBON DIOXIDE,CO2 27.0 mEq/L (21-32); CHLORIDE,CL 106.0 mEq/L (98-107); CREATININE 1.0 mg/dL (0.7-1.3); EST CRCL DRUG DOSING (CG) 51.06 mL/min; ESTIMATED GFR 72.0 mL/min (>60); GLUCOSE RANDOM 97.0 mg/dL (70-99); POTASSIUM,K 4.1 mEq/L (3.5-5.1); PROTEIN TOTAL,TP 6.5 g/dl (6.4-8.2); SODIUM,NA 143.0 mEq/L (136-145)
[2025-05-29 16:36] LABS: APPEARANCE,URINE TURBID (Clear); GLUCOSE,URINE NEGATIVE (Negative); OCCULT BLOOD,URINE 3+ (Negative)
[2025-05-29 17:23] LABS: SQUAMOUS EPITHELIAL CELLS,UR 0-5 /hpf (0-5)
== END 2025-05-29 17:55 | disposition home or self-care (01) ==
LOC: JD.ED 13:38
DX: N30.01 Acute cystitis with hematuria (principal); I48.91 Unspecified atrial fibrillation; E78.00 Pure hypercholesterolemia, unspecified; I10 Essential (primary) hypertension; I25.2 Old myocardial infarction; Z95.5 Presence of coronary angioplasty implant and graft; Z86.73 Personal history of transient ischemic attack (TIA), and cerebral infarction without residual deficits; Z88.8 Allergy status to other drugs, medicaments and biological substances; Z88.6 Allergy status to analgesic agent; Z79.899 Other long term (current) drug therapy; Z79.01 Long term (current) use of anticoagulants
CPT/HCPCS: 36415; 51798; 71046; 71046-26; 74176; 74176-26; 80053; 81001; 85025; 86140; 87086; 99283; 99284-25

== ENCOUNTER 2025-07-15 20:04 | Emergency (ER) | payer MEDICARE, OTHER ==
[2025-07-15 20:25] LABS: BASOPHILS ABSOLUTE AUTO 0.0 K/mm3 (0.0-0.2); BASOPHILS PERCENT AUTO 0.4 % (0.0-1.0); EOSINOPHILS ABSOLUTE AUTO 0.1 K/mm3 (0.0-0.4); EOSINOPHILS PERCENT AUTO 2.0 % (0.0-6.0); IMMATURE GRAN ABSOLUTE AUTO 0.01 K/mm3 (0.00-0.05); IMMATURE GRAN PERCENT AUTO 0.2 % (0.0-0.4); LYMPHOCYTES ABSOLUTE AUTO 1.2 K/mm3 (1.0-4.8); LYMPHOCYTES PERCENT AUTO 26.0 % (24.0-44.0); MEAN PLATELET VOLUME 10.6 fl (9.4-12.4); MONOCYTES ABSOLUTE AUTO 0.5 K/mm3 (0.0-0.8); MONOCYTES PERCENT AUTO 11.8 % (0.0-8.0); NEUTROPHILS ABSOLUTE AUTO 2.7 K/mm3 (1.8-7.7); NEUTROPHILS PERCENT AUTO 59.6 % (41.0-71.0); NRBC ABSOLUTE 0.00 (0.00-0.02); NRBC PERCENT 0.0 % (0.0-0.2); PLATELET COUNT,PLT 203 K/mm3 (150-400); RED BLOOD CELL COUNT 3.42 M/mm3 (4.52-5.90); WHITE BLOOD CELL COUNT,WBC 4.57 K/mm3 (3.9-11.3)
[2025-07-15] MEDS: Sodium Chloride 0.9% 10 ML Syringe FLUSH PRN ×2 (20:33→21:49)
[2025-07-15] MEDS: Iopamidol 755 Mg/ML 100 ML Bottle IVPUSH ONE ×2 (20:33→21:48)
[2025-07-15 20:37] LABS: INR 1.81
[2025-07-15 20:38] LABS: PTT,PARTIAL THROMBOPLSTIN TIME 41.4 SECONDS (21.7-31.4)
[2025-07-15 20:43] LABS: A/G RATIO 1.1 (1-2); ASPARTATE AMNIOTRANSFERASE,AST 14 U/L (15-37); BILIRUBIN TOTAL 1.5 mg/dL (0.2-1.0); BLOOD UREA NITROGEN,BUN 13 mg/dL (7-18); CARBON DIOXIDE,CO2 24 mEq/L (21-32); CHLORIDE,CL 105 mEq/L (98-107); CREATININE 1.1 mg/dL (0.7-1.3); ESTIMATED GFR 64 mL/min (>60); GLUCOSE RANDOM 104 mg/dL (70-99); POTASSIUM,K 3.3 mEq/L (3.5-5.1); PROTEIN TOTAL,TP 6.2 g/dl (6.4-8.2); SODIUM,NA 139 mEq/L (136-145); TROPONIN I HIGH SENSITIVITY 24 pg/mL (<=76)
[2025-07-15 21:11] LABS: ALANINE AMINOTRANSFERASE,ALT 14 U/L (16-63)
== END 2025-07-16 01:20 | disposition home or self-care (01) ==
LOC: JD.ED 20:04
DX: G45.9 Transient cerebral ischemic attack, unspecified (principal); I10 Essential (primary) hypertension; I25.2 Old myocardial infarction; E78.00 Pure hypercholesterolemia, unspecified; Z88.0 Allergy status to penicillin; Z88.1 Allergy status to other antibiotic agents; Z88.8 Allergy status to other drugs, medicaments and biological substances; Z79.82 Long term (current) use of aspirin; Z79.899 Other long term (current) drug therapy; Z86.16 Personal history of COVID-19
CPT/HCPCS: 36415; 70450; 70496; 70498; 80053; 83735; 84484; 85025; 85610; 85730; 93005; 99285; Q9967